=== PATIENT | male | born 1960 ===

== ENCOUNTER 2022-09-24 10:00 | Outpatient (REF) | payer OTHER, MEDICARE, SELFPAY ==
[2022-09-24 11:21] LABS: MANUAL DIFF FLAG NO
[2022-09-24 11:41] LABS: Basophils Percent Auto 0.6 % (0-2); Eosinophils Absolute Auto 0.1 X10*3/uL (0.0-0.4); Eosinophils Percent Auto 1.4 % (0-4); Hematocrit 44.5 % (42.0-52.0); Hemoglobin 13.9 g/dl (14.0-18.0); Imm Gran Abs Auto 0.02 X10*3/uL (0.00-0.03); Imm Gran Pct Auto 0.3 % (0.0-0.4); Lymphocytes Absolute Auto 1.4 X10*3/uL (1.2-4.9); Lymphocytes Percent Auto 21.5 % (20-40); Mean Corpuscular HGB Conc 31.2 g/dl (31.0-36.0); Mean Corpuscular Hemoglobin 26.8 pg (27.0-33.0); Mean Corpuscular Volume 85.7 fL (80.0-98.0); Mean Platelet Volume 10.8 fL (9.4-12.4); Monocytes Absolute Auto 0.4 X10*3/uL (0.1-1.2); Monocytes Percent Auto 6.2 % (2-11); Neutrophils Absolute Auto 4.7 x10*3/uL (2.0-8.3); Platelet Count 366 X10*3/uL (160-400); Red Blood Count 5.19 X10*6/uL (4.60-5.80); Red Cell Distribution Width 13.6 % (11.0-16.0); White Blood Count 6.6 X10*3/uL (4.8-10.8)
[2022-09-24 12:42] LABS: Alanine Aminotransferase 19 U/L (0-40); Albumin Level 4.3 g/dL (3.5-5.0); Alkaline Phosphatase 96 U/L (39-117); Anion Gap 14 (12-20); Aspartate Amino Transferase 25 U/L (5-37); Bilirubin Total 1.7 mg/dL (0.0-1.0); Blood Urea Nitrogen 19 mg/dL (9-16); Calcium 9.7 mg/dL (8.4-10.2); Carbon Dioxide 23 mmol/L (22-29); Chloride 107 mmol/L (96-108); Cholesterol 148 mg/dL; Estimated Glomerular Filt Rate > 60; Glucose Fasting 89 mg/dL (60-99); HDL Cholesterol 52 mg/dL; LDL Cholesterol Calculated 89 mg/dl; Potassium 5.1 mmol/L (3.3-5.1); Sodium 139 mmol/L (135-145); TSH reflex Free T4 0.67 uIU/mL (0.32-4.0); Total Protein 7.1 g/dL (6.5-8.0); Triglycerides 39 mg/dL
[2022-09-30 21:24] LABS: PSA, Ultra Sensitive 8.35 ng/mL
== END 2022-09-24 10:01 | disposition home or self-care (01) ==
LOC: HO.WFDLDS 10:00
PROVIDERS: Visit Provider Nurse Practitioner Family
DX: Z00.00 Encounter for general adult medical examination without abnormal findings (principal); Z12.5 Encounter for screening for malignant neoplasm of prostate; F41.9 Anxiety disorder, unspecified; F90.9 Attention-deficit hyperactivity disorder, unspecified type; G89.29 Other chronic pain; I10 Essential (primary) hypertension; M54.50 Low back pain, unspecified; N40.0 Benign prostatic hyperplasia without lower urinary tract symptoms
CPT/HCPCS: 36415; 80053; 80061; 84153; 84443; 85025

== ENCOUNTER 2023-01-27 13:54 | Outpatient (AMB) | payer MEDICARE, MEDICAID, SELFPAY ==
--- NOTE | 2023-01-27 13:58 | MHC.PC.OV ---
Vital Signs 01/27/23 13:59 Height 5 ft 9 in Weight 168 lb 6 oz BMI 24.9 BP 138/88 Blood Pressure Location Lt brachial Position Sitting Respiration 12 Pulse 71 Pulse Source Pulse Oximeter Temp 98.1 F Temp Source Temporal Artery Scan Pulse Oximetry (%) 99 Oxygen Delivery Method Room Air Intake Visit Reasons: Medications Intake Note: Patient states that he needs a referral to a new psychiatrist. Patient needs refill on Vyvanse and Adderall as well as Diazepam. Patient states he also needs refill on Tildalifil and finasteride. Land Management Supervisor Required: No Accompanied by: Self / Same As Patient Allergies No Known Allergies Allergy (Verified 01/27/23 14:07) Tobacco use date assessed: 08/27/22 Dental Screening Dental Screen Date: 01/27/23 Did you have a dental visit in the last 12 months?: Yes Did you have a dental problem in the last 6 months where you did not have access to dental care?: No Was dental information given to patient?: Patient has dentist HPI HPI Comments History of Present Illness Details 62-year-old male presents for hypertension, anxiety, depression, and ADHD follow-up. He notes that he has not taken Adderall, diazepam, and Vyvanse for the past 2 months. He was seeing a psychiatrist who was also his therapist via telemedicine every 3 months. He notes his psychiatrist informed him 2 months ago that he could no longer continue prescribing for him as a [id number] encounter was required. Adderall was prescribed by the patient's current PCP earlier this month. However, the patient states the medication was not dispensed by the pharmacy. He reports increased symptoms including poor attention span, irritability, and poor sleep. He states she took time off to manage his symptoms. He has not been working for the past 2 months. 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 He states he stopped exercising or going to the gym 4 months ago. He requests a referral to a therapist and psychiatrist. [facility] Medical History (Updated 01/27/23 @ 14:49 by Damaso Elliott CNP) Depression Anxiety Prostate troubles Hypertension Surgical History (Updated 08/27/22 @ 15:09 by Tiffany Shoemaker) No pertinent past surgical history Family History (Updated 01/27/23 @ 14:10 by Emily Chand MA) Other No pertinent family history Social History (Updated 08/27/22 @ 15:08 by Tiffany Shoemaker) Housing: House Alcohol intake: never Patient Tobacco Use Status: Never used Tobacco e-Cigarette/Vaping Use: Never Used service: No Current occupational status: unemployed Cognitive needs: No Hearing needs: No Vision needs: Yes Questionnaire PHQ-9 Over the last 2 weeks, how often have you been bothered by any of the following problems? 1. Little interest or pleasure in doing things: nearly every day 2. Feeling down, depressed, or hopeless: several days 3. Trouble falling or staying asleep, or sleeping too much: nearly every day 4. Feeling tired or having little energy: nearly every day 5. Poor appetite or overeating: nearly every day 6. Feeling bad about yourself - or that you are a failure or have let yourself or your family down: more than half the days 7. Trouble concentrating on things, such as reading the newspaper or watching television: more than half the days 8. Moving or speaking so slowly that other people could have noticed. Or the opposite - being so fidgety or restless that you have been moving around a lot more than usual: nearly every day 9. Thoughts that you would be better off or of hurting yourself in some way: not at all Total score: 20 Depression Screening Interpretation: Positive Source: Developed by Drs. Vickey Barlow, Bernie Sotelo, Loco Seymour and colleagues, with an educational zen from [employer]. Thrive Questionnaire Date Thrive assessed: 08/27/22 KAREN-7 AMB Questionnaire KAREN-7 Date KAREN - 7 assessed: 01/27/23 Feeling nervous, anxious, or on edge: 3 = Nearly every day Not being able to stop or control worryin = Nearly every day Worrying too much about different things: 3 = Nearly every day Trouble relaxin = Nearly every day Being so restless that it is hard to sit still: 2 = More than half the days Becoming easily annoyed or irritable: 3 = Nearly every day Feeling afraid as if something awful might happen: 2 = More than half the days Total KAREN-7 score (0-4 normal; 5-9 mild; 10-14 moderate; 15-21 severe): 19 Source: Developed by Drs. Vickey Barlow, Bernie Sotelo, Loco Seymour and colleagues, with an educational zen from [employer]. Review of Systems Const Details: Const Denies chills, Denies fatigue, Denies fever(s), Denies headache(s) and Denies weakness ENT Denies dizziness and Denies headache(s) Card Denies chest pain, Denies lightheadedness, Denies dyspnea and Denies other (Palpitations) Resp Denies cough, Denies dyspnea, Denies wheezing and Denies other ( shortness of breath) GI Denies abdominal pain, Denies melena, Denies hematochezia, Denies change in bowel habits, Denies dyspepsia and Denies nausea Denies hematuria and Denies dysuria Musc Denies abnormal gait, Denies myalgias, Denies arthralgias, Denies numbness and Denies tingling Skin/Breast Denies rash, Denies unusual bruising and Denies wounds Neuro Denies abnormal gait, Denies dizziness, Denies headache(s), Denies memory loss, Denies numbness, Denies Sensory deficit (Neuro), Denies tingling and Denies weakness Psych Denies anxiety, Denies depression, Denies memory loss Endo Denies cold intolerance, Denies fatigue, Denies heat intolerance, Denies polydipsia and Denies polyuria Aller/Immun Denies wheezing Physical exam (Primary Care) Vital Signs: Last Vital Signs Temp 98.1 F 01/27/23 13:59 Pulse 71 01/27/23 13:59 Resp 12 01/27/23 13:59 BP 138/88 01/27/23 13:59 Pulse Ox 99 01/27/23 13:59 Oxygen Delivery Method Room Air 01/27/23 13:59 BMI result Body Mass Index 24.9 Tobacco/Smoking Status: Tobacco use Status Tobacco use date assessed 08/27/22 09/24/22 09:20 Patient Tobacco Use Status Never used Tobacco 09/24/22 09:20 e-Cigarette/Vaping Use Never Used 09/24/22 09:20 Depression Screening Interpretation: Positive Thrive Assessment: Date of Thrive Assessment Date Thrive assessed 08/27/22 09/24/22 09:20 Const Other: General: no acute distress and well developed Nutritional Appearance: well nourished Orientation/consciousness: patient oriented x3 [facility] Head: Yes normocephalic and Yes atraumatic Eyes General: appearance normal, both eyes and all related structures Pupils: Equal, round and reactive pupils present EOM: EOMs intact bilaterally Resp Effort & Inspection: normal respiratory effort Auscultation: clear to auscultation bilaterally Cardio Rate: regular rate Rhythm: regular rhythm Heart sounds: S1 normal heart sound present, S2 normal heart sound present, no gallops, no murmurs and no rubs GI Palpation (GI): No Abdominal aortic bruit present, Soft to palpation, nontender, No hepatosplenomegaly present and No Rebound tenderness present Auscultation: normal bowel sounds General: Yes no CVA tenderness Back/Spine/Pelvis Back: no CVA tenderness Cervical Spine: cervical ROM normal and No Cervical spine tenderness Thoracic/Lumbar Spine: thoraco-lumbar ROM normal, No pain with thoraco-lumbar ROM, No thoracic spinal tenderness and No lumbar spinal tenderness Extrem General: Yes normal to inspection, No edema and No calf tenderness Skin General: warm and dry. Normal skin color. Normal skin turgor Lesions: no lesions Rashes: no rashes Trauma: no lacerations or abrasions Wounds: no wounds Nails: normal Neuro General: patient oriented x3, gait normal and no focal neuro deficit Cranial nerves: Yes Equal, round and reactive pupils present Cognition (Neuro): normal cognition Gait exam (Neuro): Normal gait present Sensory Exam: No Sensory deficit (Neuro) Psych Appearance: grossly normal Affect: normal affect Attitude: cooperative Thought process: Normal thought process present Assessment and Plan Assessment & Plan (1) Anxiety: Code(s): F41.9 - Anxiety disorder, unspecified Plan: PHQ-9 and KAREN-7 scores revealed severe depression and anxiety Adderall, trazodone, and buspirone ordered. Take as prescribed Routine exercise encouraged He met with the community navigator who will refer him to a therapist and psychiatrist Follow-up in 2 weeks or return sooner with worsening or new symptoms Verbalized understanding and agreed with the treatment plan. (2) Depression: Code(s): F32.A - Depression, unspecified Qualifiers: Depression Type: major depressive disorder Major depression recurrence: unspecified whether recurrent Major depression episode severity: severe Plan: As above (3) ADHD: Code(s): F90.9 - Attention-deficit hyperactivity disorder, unspecified type Qualifiers: Attention deficit-hyperactivity disorder type: unspecified Qualified Code(s): F90.9 - Attention-deficit hyperactivity disorder, unspecified type Plan: As above (4) Hypertension: Code(s): I10 - Essential (primary) hypertension Qualifiers: Hypertension type: primary hypertension Qualified Code(s): I10 - Essential (primary) hypertension Plan: Blood pressure is 130/88, within goal of less than 140/90 Amlodipine as prescribed Low-sodium diet encouraged Follow-up in 1 month for mood disorder Return sooner with symptoms or concerns Verbalized understanding and agreed with treatment plan. He is followed by Urology and will contact them for refill of tadalafil and finasteride. Medications: New trazodone 50 mg PO BID 30 days 60 tabs 2RF buspirone 7.5 mg PO BID 30 days 60 tabs 2RF Changed From dextroamphetamine-amphetamine 20 mg (Adderall) 20 mg PO DAILY 30 days 30 tabs 0RF To dextroamphetamine-amphetamine 20 mg (Adderall) 20 mg PO BID 30 days 60 tabs 0RF Coding Level of Care Code Est Pt Level 3 (45990) Diagnoses Anxiety F41.9 Depression F32.A Depression Type: major depressive disorder Major depression recurrence: unspecified whether recurrent Major depression episode severity: severe Attention deficit hyperactivity disorder (ADHD), unspecified ADHD type F90.9 Attention deficit-hyperactivity disorder type: unspecified Primary hypertension I10 Hypertension type: primary hypertension
[2023-01-27 13:59] VITALS: BP 138/88; PULSE 71; RESP 12; TEMP 36.7; O2SAT 99; BMI 24.9
== END 2023-01-27 15:14 | disposition home or self-care (01) ==
PROVIDERS: PCP Nurse Practitioner Family; Visit Provider Nurse Practitioner Family
DX: F41.9 Anxiety disorder, unspecified (principal); F32.A Depression, unspecified; F90.9 Attention-deficit hyperactivity disorder, unspecified type; I10 Essential (primary) hypertension
CPT/HCPCS: 99213

== ENCOUNTER 2023-02-09 10:14 | Outpatient (AMB) | payer MEDICARE, MEDICAID, SELFPAY ==
--- NOTE | 2023-02-09 10:20 | A.OFFPC_ITS ---
Vital Signs 02/09/23 10:21 Height 5 ft 9 in Weight 171 lb 4 oz BMI 25.3 BP 124/80 Blood Pressure Location Rt brachial Position Sitting Respiration 12 Pulse 83 Pulse Source Pulse Oximeter Temp 97.5 F Temp Source Temporal Artery Scan Pulse Oximetry (%) 99 Oxygen Delivery Method Room Air Intake Visit Reasons: 2 wks mood disorder Intake Note: Patient states that he hasn't gotten his adderall due to insurance needing prior authorization for his adderall. Patient states that the 2 most recent meds prescribed made him feel light headed. 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 Accompanied by: Self / Same As Patient Allergies No Known Allergies Allergy (Verified 02/09/23 10:48) Medication List - Last Reconciled 02/09/23 by Damaso Elliott CNP amlodipine 10 mg PO DAILY 30 days buspirone 7.5 mg PO BID 30 days dextroamphetamine-amphetamine 20 mg (Adderall) 20 mg PO BID 30 days diazepam 10 mg PO TID finasteride 5 mg PO DAILY lisdexamfetamine (Vyvanse) 10 mg PO DAILY tadalafil (Cialis) 5 mg PO DAILY trazodone 50 mg PO BID 30 days Tobacco use date assessed: 08/27/22 Dental Screening Dental Screen Date: 02/09/23 Did you have a dental visit in the last 12 months?: Yes Did you have a dental problem in the last 6 months where you did not have access to dental care?: No Was dental information given to patient?: Patient has dentist HPI HPI Comments History of Present Illness Details 62-year-old male presents for mood disor jacob follow-up. He was evaluated in the office 2 weeks ago for anxiety, depression, and ADHD. He was prescribed Trazadone and Buspirone. He states he has been taking both medications as prescribed and has been experiencing lightheadedness. He states that he has not been taking Adderall for the past 3 weeks due to prior authorization by his pharmacy. He was also referred to a therapist and psychiatrist on his last visit. However, he states she has not been contacted. He states his mood has been improving since his last visit. He is no easily irritable. His sleep improved form 5 to 8 hours on Trazodone. He states watching TV and playing on his phone keeps him calm. He has also been doing push-ups in the home. REPLACED BY [facility] Medical History Depression Anxiety Prostate troubles Hypertension Surgical History No pertinent past surgical history Family History Other No pertinent family history Social History Housing: House Alcohol intake: never Patient Tobacco Use Status: Never used Tobacco e-Cigarette/Vaping Use: Never Used service: No Current occupational status: unemployed Cognitive needs: No Hearing needs: No Vision needs: No Questionnaire PHQ-9 Over the last 2 weeks, how often have you been bothered by any of the following problems? 1. Little interest or pleasure in doing things: nearly every day 2. Feeling down, depressed, or hopeless: nearly every day 3. Trouble falling or staying asleep, or sleeping too much: nearly every day 4. Feeling tired or having little energy: nearly every day 5. Poor appetite or overeating: nearly every day 6. Feeling bad about yourself - or that you are a failure or have let yourself or your family down: nearly every day 7. Trouble concentrating on things, such as reading the newspaper or watching television: nearly every day 8. Moving or speaking so slowly that other people could have noticed. Or the op posite - being so fidgety or restless that you have been moving around a lot more than usual: more than half the days 9. Thoughts that you would be better off or of hurting yourself in some way: not at all Total score: 23 Depression Screening Interpretation: Positive Depression Screening Follow-up: Existing condition and In treatment 10549 - PHQ-9 Billing: Yes Source: Developed by Drs. Vickey Barlow, Bernie Soetlo, Loco Seymour and colleagues, with an educational zen from [employer]. Thrive Questionnaire Date Thrive assessed: 08/27/22 KAREN-7 AMB Questionnaire KAREN-7 Date KAREN - 7 assessed: 02/09/23 Feeling nervous, anxious, or on edge: 3 = Nearly every day Not being able to stop or control worryin = Nearly every day Worrying too much about different things: 3 = Nearly every day Trouble relaxin = Nearly every day Being so restless that it is hard to sit still: 3 = Nearly every day Becoming easily annoyed or irritable: 3 = Nearly every day Feeling afraid as if something awful might happen: 3 = Nearly every day Total KAREN-7 score (0-4 normal; 5-9 mild; 10-14 moderate; 15-21 severe): 21 Source: Developed by Drs. Vickey Barlow, Bernie Sotelo, Loco Seymour and colleagues, with an educational zen from [employer]. KAREN-7 Assessment Billing KAREN-7 Assessment Tool: KAREN-7 Assessment 06080 Review of Systems Const Details: Const Denies chills, Denies fatigue, Denies fever(s), Denies headache(s) and Denies weakness ENT Denies dizziness and Denies headache(s) Card Denies chest pain, Denies lightheadedness, Denies dyspnea and Denies other (Palpitations) Resp Denies cough, Denies dyspnea, Denies wheezing and Denies other ( shortness of breath) GI Denies abdominal pain, Denies melena, Denies hematochezia, Denies change in bowel habits, Denies dyspepsia and Denies nausea Denies hematuria and Denies dysuria Musc Denies abnormal gait, Denies myalgias, Denies arthralgias, Denies numbness and Denies tingling Skin/Breast Denies rash, Denies unusual bruising and Denies wounds Neuro Denies abnormal gait, Denies dizziness, Denies headache(s), Denies memory loss, Denies numbness, Denies Sensory deficit (Neuro), Denies tingling and Denies weakness Psych Reports anxiety, Reports depression, Denies memory loss Endo Denies cold intolerance, Denies fatigue, Denies heat intolerance, Denies polydipsia and Denies polyuria Aller/Immun Denies wheezing Physical exam (Primary Care) Vital Signs: Last Vital Signs Temp 97.5 F 02/09/23 10:21 Pulse 83 02/09/23 10:21 Resp 12 02/09/23 10:21 BP 124/80 02/09/23 10:21 Pulse Ox 99 02/09/23 10:21 Oxygen Delivery Method Room Air 02/09/23 10:21 BMI result Body Mass Index 25.3 Tobacco/Smoking Status: Tobacco use Status Tobacco use date assessed 08/27/22 02/09/23 10:30 Patient Tobacco Use Status Never used Tobacco 02/09/23 10:30 e-Cigarette/Vaping Use Never Used 02/09/23 10:30 PHQ-9: PHQ-9 Score PHQ-9: Total score 02/09/23 10:51 Depression Screening Interpretation: Positive Depression Screening Follow-up: Existing condition and In treatment Thrive Assessment: Date of Thrive Assessment Date Thrive assessed 08/27/22 02/09/23 10:30 Const Other: General: no acute distress and well developed Nutritional Appearance: well nourished Orientation/consciousness: patient oriented x3 HENMT Head: Yes normocephalic and Yes atraumatic Eyes General: appearance normal, both eyes and all related structures Pupils: Equal, round and reactive pupils present EOM: EOMs intact bilaterally Resp Effort & Inspection: normal respiratory effort Auscultation: clear to auscultation bilaterally Cardio Rate: regular rate Rhythm: regular rhythm Heart sounds: S1 normal heart sound present, S2 normal heart sound present, no gallops, no murmurs and no rubs GI Palpation (GI): No Abdominal aortic bruit present, Soft to palpation, nontender, No hepatosplenomegaly present and No Rebound tenderness present Auscultation: normal bowel sounds General: Yes no CVA tenderness Back/Spine/Pelvis Back: no CVA tenderness Cervical Spine: cervical ROM normal and No Cervical spine tenderness Thoracic/Lumbar Spine: thoraco-lumbar ROM normal, No pain with thoraco-lumbar ROM, No thoracic spinal tenderness and No lumbar spinal tenderness Extrem General: Yes normal to inspection, No edema and No calf tenderness Skin General: warm and dry. Normal skin color. Normal skin turgor Lesions: no lesions Rashes: no rashes Trauma: no lacerations or abrasions Wounds: no wounds Nails: normal Neuro General: patient oriented x3, gait normal and no focal neuro deficit Cranial nerves: Yes Equal, round and reactive pupils present Cognition (Neuro): normal cognition Gait exam (Neuro): Normal gait present Sensory Exam: No Sensory deficit (Neuro) Psych Appearance: grossly normal Affect: normal affect Attitude: cooperative Thought process: Normal thought process present Assessment and Plan Assessment & Plan (1) Anxiety: Code(s): F41.9 - Anxiety disorder, unspecified Plan: KAREN-7 and PHQ-9 scores revealed severe anxiety and depression Adverse effect of lightheadedness may be attributed to trazodone. Will modify trazodone order to 50 mg at bedtime. Take as prescribed Take Buspirone as needed for anxiety Prior authorization sent for Adderall. Take as prescribed once received Routine exercise encouraged Message sent to the community navigator that the patient has not been contacted to establish with a therapist or psychiatrist and to follow-up Follow-up in 2 weeks or return sooner with worsening or new symptoms Verbalized understanding and agreed with treatment plan. (2) Depression: Code(s): F32.A - Depression, unspecified Qualifiers: Depression Type: major depressive disorder Major depression episode severity: severe Major depression recurrence: unspecified whether recurrent Plan: As above (3) ADHD: Code(s): F90.9 - Attention-deficit hyperactivity disorder, unspecified type Qualifiers: Attention deficit-hyperactivity disorder type: unspecified Qualified Code(s): F90.9 - Attention-deficit hyperactivity disorder, unspecified type Plan: As above Coding Level of Care Code Est Pt Level 3 (80976) Diagnoses Anxiety F41.9 Depression F32.A Depression Type: major depressive disorder Major depression episode severity: severe Major depression recurrence: unspecified whether recurrent Attention deficit hyperactivity disorder (ADHD), unspecified ADHD type F90.9 Attention deficit-hyperactivity disorder type: unspecified Additional Codes KAREN-7 Assessment Billing - KAREN-7 Assessment Tool: KAREN-7 Assessment 21605 ([id number])
[2023-02-09 10:21] VITALS: BP 124/80; PULSE 83; RESP 12; TEMP 36.4; O2SAT 99; BMI 25.3
== END 2023-02-09 11:12 | disposition home or self-care (01) ==
PROVIDERS: PCP Nurse Practitioner Family; Visit Provider Nurse Practitioner Family
DX: F41.9 Anxiety disorder, unspecified (principal); F32.A Depression, unspecified; F90.9 Attention-deficit hyperactivity disorder, unspecified type
CPT/HCPCS: 99213

== ENCOUNTER 2023-03-14 08:58 | Outpatient (AMB) | payer MEDICARE, MEDICAID, SELFPAY ==
--- NOTE | 2023-03-14 09:01 | MHC.PC.OV ---
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 Accompanied by: Self / Same As Patient Allergies No Known Allergies Allergy (Verified 03/14/23 09:21) Medication List - Last Reconciled 03/14/23 by Damaso Elliott CNP amlodipine 10 mg PO DAILY 30 days buspirone 7.5 mg PO BID 30 days dextroamphetamine-amphetamine 20 mg (Adderall) 20 mg PO BID 30 days diazepam 10 mg PO TID finasteride 5 mg PO DAILY lisdexamfetamine (Vyvanse) 10 mg PO DAILY tadalafil (Cialis) 5 mg PO DAILY trazodone 50 mg PO BID 30 days Tobacco use date assessed: 08/27/22 Dental Screening Dental Screen Date: 03/14/23 Did you have a dental visit in the last 12 months?: Yes Did you have a dental problem in the last 6 months where you did not have access to dental care?: No Was dental information given to patient?: Patient has dentist HPI HPI Comments History of Present Illness Details 62-year-old male presents for anxiety, depression, and ADHD follow-up. He is on buspirone, trazodone, and Adderall. He admits to take his medication as prescribed with no adverse effects. He notes that his sleep has been improving. He had a positive response to the PHQ-9 question regarding Thoughts that you would be better off or of hurting yourself in some way. He notes that I just can't do anything. If i'm not binge eating, i just can't do anything. He notes that he feels depressed and angry but he does not know what he is angry about. He denies SI/HI, plans of committing suicide, and contracts for safety. He notes that he has not been exercising. ? [facility] Medical History Depression Anxiety Prostate troubles Hypertension Surgical History No pertinent past surgical history Family History Other No pertinent family history Social History Housing: House Alcohol intake: never Patient Tobacco Use Status: Never used Tobacco e-Cigarette/Vaping Use: Never Used service: No Current occupational status: unemployed Cognitive needs: No Hearing needs: No Vision needs: No Questionnaire PHQ-9 Over the last 2 weeks, how often have you been bothered by any of the following problems? 1. Little interest or pleasure in doing things: nearly every day 2. Feeling down, depressed, or hopeless: nearly every day 3. Trouble falling or staying asleep, or sleeping too much: nearly every day 4. Feeling tired or having little energy: nearly every day 5. Poor appetite or overeating: nearly every day 6. Feeling bad about yourself - or that you are a failure or have let yourself or your family down: nearly every day 7. Trouble concentrating on things, such as reading the newspaper or watching television: nearly every day 8. Moving or speaking so slowly that other people could have noticed. Or the opposite - being so fidgety or restless that you have been moving around a lot more than usual: nearly every day 9. Thoughts that you would be better off or of hurting yourself in some way: nearly every day Total score: 27 Depression Screening Interpretation: Positive Depression Screening Follow-up: Existing condition, In treatment, New Medication prescribed, Change in Medication and Community Mental Health Worker F/U Depression Screening Done: Yes Source: Developed by Drs. Vickey Barlow, Bernie Sotelo, Loco Seymour and colleagues, with an educational zen from [employer]. Thrive Questionnaire Date Thrive assessed: 08/27/22 KAREN-7 AMB Questionnaire KAREN-7 Date KAREN - 7 assessed: 02/09/23 Feeling nervous, anxious, or on edge: 3 = Nearly every day Not being able to stop or control worryin = Nearly every day Worrying too much about different things: 3 = Nearly every day Trouble relaxin = Nearly every day Being so restless that it is hard to sit still: 3 = Nearly every day Becoming easily annoyed or irritable: 3 = Nearly every day Feeling afraid as if something awful might happen: 3 = Nearly every day Total KAREN-7 score (0-4 normal; 5-9 mild; 10-14 moderate; 15-21 severe): 21 Source: Developed by Drs. Vickey Barlow, Bernie Sotelo, Loco Seymour and colleagues, with an educational zen from [employer]. Review of Systems Const Details: Const Denies chills, Denies fatigue, Denies fever(s), Denies headache(s) and Denies weakness ENT Denies dizziness and Denies headache(s) Card Denies chest pain, Denies lightheadedness, Denies dyspnea and Denies other (Palpitations) Resp Denies cough, Denies dyspnea, Denies wheezing and Denies other ( shortness of breath) GI Denies abdominal pain, Denies melena, Denies hematochezia, Denies change in bowel habits, Denies dyspepsia and Denies nausea Denies hematuria and Denies dysuria Musc Denies abnormal gait, Denies myalgias, Denies arthralgias, Denies numbness and Denies tingling Skin/Breast Denies rash, Denies unusual bruising and Denies wounds Neuro Denies abnormal gait, Denies dizziness, Denies headache(s), Denies memory loss, Denies numbness, Denies Sensory deficit (Neuro), Denies tingling and Denies weakness Psych Denies anxiety, Denies depression, Denies memory loss Endo Denies cold intolerance, Denies fatigue, Denies heat intolerance, Denies polydipsia and Denies polyuria Aller/Immun Denies wheezing Physical exam (Primary Care) Vital Signs: Last Vital Signs Temp 98.2 F 03/14/23 09:02 Pulse 78 03/14/23 09:02 Resp 12 03/14/23 09:02 BP 126/74 03/14/23 09:02 Pulse Ox 98 03/14/23 09:02 Oxygen Delivery Method Room Air 03/14/23 09:02 BMI result Body Mass Index 25.8 Tobacco/Smoking Status: Tobacco use Status Tobacco use date assessed 08/27/22 03/14/23 09:10 Patient Tobacco Use Status Never used Tobacco 03/14/23 09:10 e-Cigarette/Vaping Use Never Used 03/14/23 09:10 PHQ-9: PHQ-9 Score PHQ-9: Total score 27 03/14/23 09:19 Depression Screening Interpretation: Positive Depression Screening Follow-up: Existing condition, In treatment, New Medication prescribed, Change in Medication and Community Mental Health Worker F/U Thrive Assessment: Date of Thrive Assessment Date Thrive assessed 08/27/22 03/14/23 09:10 Const Other: General: no acute distress and well developed Nutritional Appearance: well nourished Orientation/consciousness: patient oriented x3 HENMT Head: Yes normocephalic and Yes atraumatic Eyes General: appearance normal, both eyes and all related structures Pupils: Equal, round and reactive pupils present EOM: EOMs intact bilaterally Resp Effort & Inspection: normal respiratory effort Auscultation: clear to auscultation bilaterally Cardio Rate: regular rate Rhythm: regular rhythm Heart sounds: S1 normal heart sound present, S2 normal heart sound present, no gallops, no murmurs and no rubs GI Palpation (GI): No Abdominal aortic bruit present, Soft to palpation, nontender, No hepatosplenomegaly present and No Rebound tenderness present Auscultation: normal bowel sounds General: Yes no CVA tenderness Back/Spine/Pelvis Back: no CVA tenderness Cervical Spine: cervical ROM normal and No Cervical spine tenderness Thoracic/Lumbar Spine: thoraco-lumbar ROM normal, No pain with thoraco-lumbar ROM, No thoracic spinal tenderness and No lumbar spinal tenderness Extrem General: Yes normal to inspection, No edema and No calf tenderness Skin General: warm and dry. Normal skin color. Normal skin turgor Lesions: no lesions Rashes: no rashes Trauma: no lacerations or abrasions Wounds: no wounds Nails: normal Neuro General: patient oriented x3, gait normal and no focal neuro deficit Cranial nerves: Yes Equal, round and reactive pupils present Cognition (Neuro): normal cognition Gait exam (Neuro): Normal gait present Sensory Exam: No Sensory deficit (Neuro) Psych Appearance: grossly normal Affect: flat affect Attitude: cooperative Thought process: Normal thought process present Assessment and Plan Assessment & Plan (1) Depression: Code(s): F32.A - Depression, unspecified Qualifiers: Depression Type: major depressive disorder Major depression recurrence: unspecified whether recurrent Major depression episode severity: severe Plan: Reports worsening anxiety, depression, and ADHD symptoms PHQ-9 and KAREN-7 scores revealed severe depression and anxiety Fluoxetine ordered. Take as prescribed Will increase buspirone to 10 mg twice daily. Take as prescribed Continue to take trazodone as prescribed Routine exercise encouraged His health plan did not cover this psychiatrist he was referred to. Therefore, he met with our community navigator today who referred him to a new psychiatrist. He is advised to contact the community navigator he is not contacted for an appointment in the next 2 weeks Follow-up in 2 weeks or return sooner with worsening or new symptoms. Instructed on importance of follow-up as instructed Verbalized understanding and agreed with treatment plan. (2) Anxiety: Code(s): F41.9 - Anxiety disorder, unspecified Plan: As above (3) ADHD: Code(s): F90.9 - Attention-deficit hyperactivity disorder, unspecified type Qualifiers: Attention deficit-hyperactivity disorder type: unspecified Qualified Code(s): F90.9 - Attention-deficit hyperactivity disorder, unspecified type Plan: As above (4) Hypertension: Code(s): I10 - Essential (primary) hypertension Qualifiers: Hypertension type: primary hypertension Qualified Code(s): I10 - Essential (primary) hypertension Plan: His blood pressure is controlled, 126/74, within goal of less than 140/90 Continue with current treatment regimen Low-sodium diet encouraged Will continue to monitor Verbalized understanding and agreed with treatment plan. Medications: New buspirone 10 mg PO BID 30 days 60 tabs 3RF fluoxetine 20 mg PO DAILY 30 days 30 caps 3RF Discontinued buspirone Discontinued Reason: Doctor's Order 7.5 mg PO BID 30 days 60 tabs 2RF Coding Level of Care Code Est Pt Level 4 (88148) Diagnoses Depression F32.A Depression Type: major depressive disorder Major depression recurrence: unspecified whether recurrent Major depression episode severity: severe Anxiety F41.9 Attention deficit hyperactivity disorder (ADHD), unspecified ADHD type F90.9 Attention deficit-hyperactivity disorder type: unspecified Primary hypertension I10 Hypertension type: primary hypertension
[2023-03-14 09:02] VITALS: BP 126/74; PULSE 78; RESP 12; TEMP 36.8; O2SAT 98; BMI 25.8
== END 2023-03-14 10:27 | disposition home or self-care (01) ==
PROVIDERS: PCP Nurse Practitioner Family; Visit Provider Nurse Practitioner Family
DX: I10 Essential (primary) hypertension (principal); F32.A Depression, unspecified; F41.9 Anxiety disorder, unspecified; F90.9 Attention-deficit hyperactivity disorder, unspecified type
CPT/HCPCS: 99214

== ENCOUNTER 2023-03-28 10:40 | Outpatient (AMB) | payer MEDICARE, MEDICAID, SELFPAY ==
--- NOTE | 2023-03-28 10:45 | MHC.PC.OV ---
Vital Signs 03/28/23 10:47 03/28/23 11:19 Height 5 ft 9 in Weight 168 lb 9 oz BMI 24.9 BP 142/88 H 130/90 H Blood Pressure Location Lt brachial Rt brachial Position Sitting Sitting Respiration 13 Pulse 89 Pulse Source Pulse Oximeter Temp 98.9 F Temp Source Oral Pulse Oximetry (%) 98 Oxygen Delivery Method Room Air Intake Visit Reasons: 2 wks anxiety, depression, ADHD Intake Note: Patient is here to follow up on his anxiety, depression and ADHD. Patient reports anxiety is elevated due to check-in process. [employer] Required: No Accompanied by: Self / Same As Patient Allergies No Known Allergies Allergy (Verified 03/28/23 10:59) Medication List - Last Reconciled 03/28/23 by Damaso Elliott CNP amlodipine 10 mg PO DAILY 30 days buspirone 10 mg PO BID 30 days dextroamphetamine-amphetamine 20 mg (Adderall) 20 mg PO BID 30 days diazepam 10 mg PO TID finasteride 5 mg PO DAILY fluoxetine 20 mg PO DAILY 30 days lisdexamfetamine (Vyvanse) 10 mg PO DAILY tadalafil (Cialis) 5 mg PO DAILY trazodone 50 mg PO BID 30 days Tobacco use date assessed: 08/27/22 HPI HPI Comments History of Present Illness Details 62-year-old male presents for anxiety, depression, and ADHD follow-up. He was last seen on 03/14/2023. He reported sleep improvement and increased anxiety and depression symptoms. Fluoxetine was prescribed. Prescribed 1 was increased to 10 mg twice daily. He was advised to take his medication including trazodone and Adderall as prescribed. He was referred to a new psychiatrist. He admits to taking his medications as prescribed. He states that he noticed some improvement with his current treatment regimen. He notes that I'm more calm and less irritable. He notes that trazodone makes him drowsy not sleepy. Melatonin was not effective in the past. He reports inadequate amount of sleep. He states that he has not started exercising routinely. He notes that he was contacted by his psychiatrist who informed him he does not have a referral for them. However, he was placed on a wait list. [facility] Medical History Depression Anxiety Prostate troubles Hypertension Surgical History No pertinent past surgical history Family History Other No pertinent family history Social History Housing: House Alcohol intake: never Patient Tobacco Use Status: Never used Tobacco e-Cigarette/Vaping Use: Never Used service: No Current occupational status: unemployed Cognitive needs: No Hearing needs: No Vision needs: No Questionnaire PHQ-9 Over the last 2 weeks, how often have you been bothered by any of the following problems? 1. Little interest or pleasure in doing things: nearly every day 2. Feeling down, depressed, or hopeless: more than half the days 3. Trouble falling or staying asleep, or sleeping too much: nearly every day 4. Feeling tired or having little energy: more than half the days 5. Poor appetite or overeating: more than half the days 6. Feeling bad about yourself - or that you are a failure or have let yourself or your family down: more than half the days 7. Trouble concentrating on things, such as reading the newspaper or watching television: more than half the days 8. Moving or speaking so slowly that other people could have noticed. Or the opposite - being so fidgety or restless that you have been moving around a lot more than usual: nearly every day 9. Thoughts that you would be better off or of hurting yourself in some way: not at all Total score: 19 Depression Screening Interpretation: Positive Depression Screening Follow-up: Existing condition and In treatment Depression Screening Done: Yes 63038 - PHQ-9 Billing: Yes Source: Developed by Drs. Vickey Barlow, Bernie Sotelo, Loco Seymour and colleagues, with an educational zen from [employer]. Thrive Questionnaire Date Thrive assessed: 08/27/22 KAREN-7 AMB Questionnaire KAREN-7 Date KAREN - 7 assessed: 03/28/23 Feeling nervous, anxious, or on edge: 3 = Nearly every day Not being able to stop or control worryin = Nearly every day Worrying too much about different things: 2 = More than half the days Trouble relaxin = Nearly every day Being so restless that it is hard to sit still: 3 = Nearly every day Becoming easily annoyed or irritable: 2 = More than half the days Feeling afraid as if something awful might happen: 3 = Nearly every day Total KAREN-7 score (0-4 normal; 5-9 mild; 10-14 moderate; 15-21 severe): 19 Source: Developed by Drs. Vickey Barlow, Bernie Sotelo, Loco Seymour and colleagues, with an educational zen from [employer]. KAREN-7 Assessment Billing KAREN-7 Assessment Tool: KAREN-7 Assessment 57599 Review of Systems Const Details: Const Denies chills, Denies fatigue, Denies fever(s), Denies headache(s) and Denies weakness ENT Denies dizziness and Denies headache(s) Card Denies chest pain, Denies lightheadedness, Denies dyspnea and Denies other (Palpitations) Resp Denies cough, Denies dyspnea, Denies wheezing and Denies other ( shortness of breath) GI Denies abdominal pain, Denies melena, Denies hematochezia, Denies change in bowel habits, Denies dyspepsia and Denies nausea Denies hematuria and Denies dysuria Musc Denies abnormal gait, Denies myalgias, Denies arthralgias, Denies numbness and Denies tingling Skin/Breast Denies rash, Denies unusual bruising and Denies wounds Neuro Denies abnormal gait, Denies dizziness, Denies headache(s), Denies memory loss, Denies numbness, Denies Sensory deficit (Neuro), Denies tingling and Denies weakness Psych Reports anxiety, Reports depression, Denies memory loss Endo Denies cold intolerance, Denies fatigue, Denies heat intolerance, Denies polydipsia and Denies polyuria Aller/Immun Denies wheezing Physical exam (Primary Care) Vital Signs: Last Vital Signs Temp 98.9 F 03/28/23 10:47 Pulse 89 03/28/23 10:47 Resp 13 03/28/23 10:47 BP 142/88 H 03/28/23 10:47 Pulse Ox 98 03/28/23 10:47 Oxygen Delivery Method Room Air 03/28/23 10:47 BMI result Body Mass Index 24.9 Tobacco/Smoking Status: Tobacco use Status Tobacco use date assessed 08/27/22 03/28/23 10:47 Patient Tobacco Use Status Never used Tobacco 03/28/23 10:47 e-Cigarette/Vaping Use Never Used 03/28/23 10:47 PHQ-9: PHQ-9 Score PHQ-9: Total score 19 03/28/23 10:56 Depression Screening Interpretation: Positive Depression Screening Follow-up: Existing condition and In treatment Thrive Assessment: Date of Thrive Assessment Date Thrive assessed 08/27/22 03/28/23 10:47 Const Other: General: no acute distress and well developed Nutritional Appearance: well nourished Orientation/consciousness: patient oriented x3 HENMT Head: Yes normocephalic and Yes atraumatic Eyes General: appearance normal, both eyes and all related structures Pupils: Equal, round and reactive pupils present EOM: EOMs intact bilaterally Resp Effort & Inspection: normal respiratory effort Auscultation: clear to auscultation bilaterally Cardio Rate: regular rate Rhythm: regular rhythm Heart sounds: S1 normal heart sound present, S2 normal heart sound present, no gallops, no murmurs and no rubs GI Palpation (GI): No Abdominal aortic bruit present, Soft to palpation, nontender, No hepatosplenomegaly present and No Rebound tenderness present Auscultation: normal bowel sounds General: Yes no CVA tenderness Back/Spine/Pelvis Back: no CVA tenderness Cervical Spine: cervical ROM normal and No Cervical spine tenderness Thoracic/Lumbar Spine: thoraco-lumbar ROM normal, No pain with thoraco-lumbar ROM, No thoracic spinal tenderness and No lumbar spinal tenderness Extrem General: Yes normal to inspection, No edema and No calf tenderness Skin General: warm and dry. Normal skin color. Normal skin turgorl Neuro General: patient oriented x3, unsteady baseline gait, and no focal neuro deficit Cranial nerves: Yes Equal, round and reactive pupils present Cognition (Neuro): normal cognition Gait exam (Neuro): unsteady baseline gait present Sensory Exam: No Sensory deficit (Neuro) Psych Appearance: grossly normal Affect: normal affect Attitude: cooperative Thought process: Normal thought process present Assessment and Plan Assessment & Plan (1) Depression: Code(s): F32.A - Depression, unspecified Qualifiers: Depression Type: major depressive disorder Major depression recurrence: unspecified whether recurrent Major depression episode severity: severe Plan: PHQ-9 and KAREN-7 scores revealed moderately severe depression and severe anxiety respectively Continue to take Adderall, fluoxetine, and buspirone daily Routine exercise encouraged He met with the community navigator to assist him with connecting to a psychiatrist Follow-up in 2 weeks or return sooner with worsening or new symptoms Verbalized understanding and agreed with treatment plan. (2) Anxiety: Code(s): F41.9 - Anxiety disorder, unspecified Plan: As above (3) ADHD: Code(s): F90.9 - Attention-deficit hyperactivity disorder, unspecified type Qualifiers: Attention deficit-hyperactivity disorder type: unspecified Qualified Code(s): F90.9 - Attention-deficit hyperactivity disorder, unspecified type Plan: As above (4) Hypertension: Code(s): I10 - Essential (primary) hypertension Qualifiers: Hypertension type: primary hypertension Qualified Code(s): I10 - Essential (primary) hypertension Plan: Resting blood pressure is 130/90, slightly above goal of less than 140/80 Amlodipine as prescribed Clonidine prescribed for sleep. May improve blood pressure Low-sodium diet encouraged Follow-up in 2 weeks or return sooner with symptoms or concerns Verbalized understanding and agreed with treatment plan. (5) Insomnia: Code(s): G47.00 - Insomnia, unspecified Qualifiers: Insomnia type: due to other mental disorder Qualified Code(s): F51.05 - Insomnia due to other mental disorder; F99 - Mental disorder, not otherwise specified Plan: Reports inadequate sleep and trazodone has bee ineffective Trazodone discontinued Clonidine ordered. Take as prescribed Routine exercise encouraged Follow-up in 2 weeks or return sooner with worsening or new symptoms Verbalized understanding and agreed with treatment plan. Medications: New clonidine HCl 0.1 mg PO BID 30 days 60 tabs 1RF Discontinued trazodone Discontinued Reason: Doctor's Order 50 mg PO BID 30 days 60 tabs 2RF Coding Level of Care Code Est Pt Level 4 (03804) Diagnoses Depression F32.A Depression Type: major depressive disorder Major depression recurrence: unspecified whether recurrent Major depression episode severity: severe Anxiety F41.9 Attention deficit hyperactivity disorder (ADHD), unspecified ADHD type F90.9 Attention deficit-hyperactivity disorder type: unspecified Primary hypertension I10 Hypertension type: primary hypertension Insomnia due to other mental disorder F51.05; F99 Insomnia type: due to other mental disorder Additional Codes KAREN-7 Assessment Billing - KAREN-7 Assessment Tool: KAREN-7 Assessment [id number] ([id number])
[2023-03-28 10:47] VITALS: BP 142/88; PULSE 89; RESP 13; TEMP 37.2; O2SAT 98; BMI 24.9
[2023-03-28 11:19] VITALS: BP 130/90
== END 2023-03-28 11:39 | disposition home or self-care (01) ==
PROVIDERS: PCP Nurse Practitioner Family; Visit Provider Nurse Practitioner Family
DX: F32.A Depression, unspecified (principal); F41.9 Anxiety disorder, unspecified; F90.9 Attention-deficit hyperactivity disorder, unspecified type; I10 Essential (primary) hypertension; F51.05 Insomnia due to other mental disorder; F99 Mental disorder, not otherwise specified
CPT/HCPCS: 96127; 99214

== ENCOUNTER 2023-04-11 11:26 | Outpatient (REF) | payer MEDICARE, MEDICAID, SELFPAY ==
[2023-04-11 13:20] LABS: Prostate Specific Antigen 5.99 ng/mL (<0.05-4.0)
== END 2023-04-11 11:27 | disposition home or self-care (01) ==
LOC: HO.LAB 11:26
PROVIDERS: PCP Nurse Practitioner Family; Visit Provider Physician Assistant
DX: Z12.5 Encounter for screening for malignant neoplasm of prostate (principal); R97.20 Elevated prostate specific antigen [PSA]
CPT/HCPCS: 36415; 84153

== ENCOUNTER 2023-06-22 16:03 | Outpatient (AMB) | payer OTHER, SELFPAY ==
--- NOTE | 2023-06-22 16:15 | MHC.PC.OV ---
Vital Signs 06/22/23 16:22 Height 5 ft 9 in Weight 169 lb 8 oz BMI 25.0 BP 130/78 Blood Pressure Location Lt brachial Position Sitting Pulse 82 Pulse Source Pulse Oximeter Pulse Oximetry (%) 96 Oxygen Delivery Method Room Air Intake Visit Reasons: Transfer from [facility] Intake Note: Pt is transfer care from [facility] Allergies No Known Allergies Allergy (Verified 06/22/23 16:25) Tobacco use date assessed: 06/22/23 Dental Screening Dental Screen Date: 06/22/23 Did you have a dental visit in the last 12 months?: Yes Did you have a dental problem in the last 6 months where you did not have access to dental care?: No Was dental information given to patient?: Patient has dentist HPI Transfer from [facility] HPI Details New pt is here for a PE. Will order labs. Pt has had a previous colonoscopy in [place], will track down notes. Pt sees a urologist. Pt has a therapist due to severe anxiety. He currently takes adderall and diazepam. Explained to pt that I can not prescribe these meds. He is on a waiting list to see a psychiatrist. Pt will contact his previous provider to see if he can continue to prescribe these. Denies any SI and HI. Pt c/o bilat knee and shoulder pain. He reports a hx of arthritis. Will refer to ortho. Pt follows up with [facility]. Pt has a heightened sole of his left shoe due to a severe hip injury in the past. [facility] Medical History Depression Anxiety Prostate troubles Hypertension Surgical History No pertinent past surgical history Family History Other No pertinent family history Social History Housing: House Alcohol intake: never Patient Tobacco Use Status: Never used Tobacco e-Cigarette/Vaping Use: Never Used service: No Current occupational status: unemployed Cognitive needs: No Hearing needs: No Vision needs: No Questionnaire PHQ-9 Over the last 2 weeks, how often have you been bothered by any of the following problems? 1. Little interest or pleasure in doing things: nearly every day 2. Feeling down, depressed, or hopeless: nearly every day 3. Trouble falling or staying asleep, or sleeping too much: nearly every day 4. Feeling tired or having little energy: nearly every day 5. Poor appetite or overeating: nearly every day 6. Feeling bad about yourself - or that you are a failure or have let yourself or your family down: nearly every day 7. Trouble concentrating on things, such as reading the newspaper or watching television: nearly every day 8. Moving or speaking so slowly that other people could have noticed. Or the opposite - being so fidgety or restless that you have been moving around a lot more than usual: nearly every day 9. Thoughts that you would be better off or of hurting yourself in some way: several days Total score: 25 Depression Screening Interpretation: Positive Depression Screening Follow-up: Existing condition and In treatment Depression Screening Done: Yes 99892 - PHQ-9 Billing: Yes Source: Developed by Drs. Vickey Barlow, Bernie Sotelo, Loco Seymour and colleagues, with an educational zen from [employer]. Thrive Questionnaire Date Thrive assessed: 06/22/23 I am a: Patient What is your living situation today?: I have a steady place to live Within the past 12 months, did the food you bought not last and you didn't have the money to get more?: Sometimes True Within the past 12 months, did you worry whether your food would run out before you got money to buy more?: Sometimes True Do you have trouble paying for medicines?: Yes Do you have trouble getting transportation to medical appointments?: No Do you have trouble paying your heating and electricity bill?: No Do you have trouble taking care of your child, family member or friend?: No Do you have trouble with day-to-day activities such as bathing, preparing meals, shopping, managing finances, etc.?: No Are you currently unemployed and looking for a job?: No Are you interested in more education?: Yes Currently or been in a relationship where the following occur: no concerns reported THRIVE Score: 2 AUDIT C Alcohol Use Questionnaire (AUDIT-C) 1. How often do you have a drink containing alcohol?: Monthly or less 2. How many drinks containing alcohol do you have on a typical day when you are drinking?: 1 or 2 3. How often do you have six or more drinks on one occasion?: Never Total Score: 1 Score Reviewed/Action Taken: Yes KAREN-7 AMB Questionnaire KAREN-7 Date KAREN - 7 assessed: 06/22/23 Feeling nervous, anxious, or on edge: 3 = Nearly every day Not being able to stop or control worryin = Nearly every day Worrying too much about different things: 3 = Nearly every day Trouble relaxin = Nearly every day Being so restless that it is hard to sit still: 2 = More than half the days Becoming easily annoyed or irritable: 3 = Nearly every day Feeling afraid as if something awful might happen: 3 = Nearly every day Total KAREN-7 score (0-4 normal; 5-9 mild; 10-14 moderate; 15-21 severe): 20 Source: Developed by Drs. Vickey Barlow, Bernie Sotelo, Loco Seymour and colleagues, with an educational zen from [employer]. KAREN-7 Assessment Billing KAREN-7 Assessment Tool: KAREN-7 Assessment [id number] (sees therapist, on waiting list for psychiatrist, denies any si or hi) Physical exam (Primary Care) Vital Signs: Last Vital Signs Pulse 82 06/22/23 16:22 BP 130/78 06/22/23 16:22 Pulse Ox 96 06/22/23 16:22 Oxygen Delivery Method Room Air 06/22/23 16:22 BMI result Body Mass Index 25.0 Tobacco/Smoking Status: Tobacco use Status Tobacco use date assessed 06/22/23 06/22/23 16:30 Patient Tobacco Use Status Never used Tobacco 06/22/23 16:16 e-Cigarette/Vaping Use Never Used 06/22/23 16:16 PHQ-9: PHQ-9 Score PHQ-9: Total score 25 06/22/23 16:35 Depression Screening Interpretation: Positive Depression Screening Follow-up: Existing condition and In treatment Thrive Assessment: Date of Thrive Assessment Date Thrive assessed 06/22/23 06/22/23 16:34 Currently or been in a relationship where the following occur: no concerns reported Const General: cooperative and no acute distress HENMT Ears: TM normal on the right and TM normal on the left Throat: Yes posterior oropharynx normal Eyes General: appearance normal, both eyes and all related structures Neck Neck: Yes normal visual inspection Chest Chest palpation & inspection: normal inspection of the chest Resp Effort & Inspection: normal respiratory effort Cardio Rate: regular rate Rhythm: regular rhythm Heart sounds: S1 normal heart sound present, S2 normal heart sound present and no murmurs GI Palpation (GI): Soft to palpation and nontender Psych Appearance: grossly normal and well kempt Speech and movement: Normal speech and movement present Affect: normal affect Attitude: cooperative Assessment and Plan Assessment & Plan (1) Arthritis: Code(s): M19.90 - Unspecified osteoarthritis, unspecified site Plan: XRs ordered (2) Bilateral shoulder pain: Code(s): M25.511 - Pain in right shoulder; M25.512 - Pain in left shoulder Plan: XRs ordered (3) Bilateral knee pain: Code(s): M25.561 - Pain in right knee; M25.562 - Pain in left knee Plan: XRs ordered (4) Physical exam, annual: Code(s): Z00.00 - Encounter for general adult medical examination without abnormal findings Plan The patient agreed to the use of a nuclear medicine medical director for this encounter. Scribed for OPAL Linder- by Olivia Mccain nuclear medicine medical director, on 06/22/2023 at 16:35 EST. Orders: Referrals Orthopedics Referral M19.90 - Unspecified osteoarthritis, unspecified site, M25.511 - Pain in right shoulder, M25.512 - Pain in left shoulder, M25.561 - Pain in right knee, M25.562 - Pain in left knee Medications: New trazodone 50 mg PO BID 180 tabs 0RF 90 days duloxetine 60 mg PO DAILY 90 caps 0RF 90 days finasteride 5 mg PO DAILY 90 tabs 0RF tadalafil (Cialis) 5 mg PO DAILY 90 tabs 0RF Changed From amlodipine 10 mg PO DAILY 30 days 30 tabs 0RF To amlodipine 10 mg PO DAILY 90 tabs 0RF 90 days From clonidine HCl 0.1 mg PO BID 30 days 60 tabs 1RF To clonidine HCl 0.1 mg PO BID 180 tabs 1RF 90 days Coding Level of Care Code New Pt Prev Care 40-64y(01511) Diagnoses Arthritis M19.90 Bilateral shoulder pain M25.511; M25.512 Bilateral knee pain M25.561; M25.562 Physical exam, annual Z00.00 Additional Codes KAREN-7 Assessment Billing - KAREN-7 Assessment Tool: KAREN-7 Assessment [id number] ([id number])
[2023-06-22 16:22] VITALS: BP 130/78; PULSE 82; O2SAT 96; BMI 25.0
== END 2023-06-22 17:07 | disposition home or self-care (01) ==
PROVIDERS: PCP Nurse Practitioner Family; Visit Provider Nurse Practitioner Family
DX: Z00.00 Encounter for general adult medical examination without abnormal findings (principal); M19.90 Unspecified osteoarthritis, unspecified site; M25.511 Pain in right shoulder; M25.512 Pain in left shoulder; M25.561 Pain in right knee; M25.562 Pain in left knee
CPT/HCPCS: 99386

== ENCOUNTER 2023-07-05 13:39 | Outpatient (REF) | payer MEDICARE, SELFPAY ==
[2023-07-05 14:39] LABS: Alanine Aminotransferase 14 U/L (0-40); Albumin Level 4.4 g/dL (3.5-5.0); Alkaline Phosphatase 80 U/L (39-117); Anion Gap 11 (12-20); Aspartate Amino Transferase 20 U/L (5-37); Bilirubin Total 0.9 mg/dL (0.0-1.0); Blood Urea Nitrogen 11 mg/dL (9-16); Calcium 9.7 mg/dL (8.4-10.2); Carbon Dioxide 27 mmol/L (22-29); Chloride 106 mmol/L (96-108); Cholesterol 169 mg/dL (<200); Estimated Glomerular Filt Rate > 60; Glucose Random 88 mg/dL (60-115); HDL Cholesterol 56 mg/dL (>40); LDL Cholesterol Calculated 106 mg/dL (<100); Potassium 4.1 mmol/L (3.3-5.1); Sodium 140 mmol/L (135-145); Total Protein 7.4 g/dL (6.5-8.0); Triglycerides 37 mg/dL (<150)
[2023-07-05 14:56] LABS: Thyroid Stimulating Hormone 1.06 uIU/mL (0.32-4.0)
== END 2023-07-05 13:40 | disposition home or self-care (01) ==
LOC: HO.LAB 13:39
PROVIDERS: PCP Nurse Practitioner Family; Visit Provider Internal Medicine Cardiovascular Disease
DX: Z71.2 Person consulting for explanation of examination or test findings (principal)
CPT/HCPCS: 36415; 80053; 80061; 84443

== ENCOUNTER 2023-07-29 09:08 | Outpatient (REF) | payer MEDICARE, MEDICAID, SELFPAY ==
--- NOTE | ~2023-07-29 | XR_ITS ---
EXAMINATION: XR PELVIS XR AP STANDING BILATERAL KNEES XR KNEE, RIGHT XR KNEE, LEFT CLINICAL INFORMATION: Pain in bilateral knees. Pain in unspecified hip. COMPARISON: None available. TECHNIQUE: AP standing, lateral and sunrise views of each knee. 2 AP views of the pelvis. FINDINGS: LEFT KNEE: Bones are diffusely demineralized. Trace joint effusion. Mild narrowing of the medial compartment with small medial marginal osteophytes. Transverse sclerosis in the proximal diametaphysis of the tibia, possibly related to prior trauma of indeterminate age. Correlation with clinical exam and prior imaging of possible recommended to determine further management. RIGHT KNEE: The bones are diffusely demineralized. Mild narrowing of the medial compartment with tiny medial marginal osteophytes. Small joint effusion. Small posterior patellar osteophytes. AP PELVIS: Status post left hip total arthroplasty with 2 acetabular screws. Hardware appears intact on the 2 AP views provided. Extensive heterotopic ossification adjacent to the left hip joint. Direct correlation with prior images is recommended and if prior images are provided, an addendum will be dictated. In the absence of prior images, CT scan or MRI should be considered for further evaluation. Moderate degenerative changes right hip. Sclerosis along right intertrochanteric region of indeterminate etiology and age. Abundant hypertrophic change and deformity along the lateral aspect of the right iliac wing, possibly related to prior trauma. Moderate degenerative changes in the bilateral sacroiliac joints, right greater than left. Degenerative changes on very limited imaging of the lower lumbar spine. XR/XR knee standing BI IMPRESSION: 1. Mild degenerative changes in the bilateral knees. 2. Transverse sclerosis in the proximal diametaphysis of the left tibia, possibly related to prior trauma of indeterminate age. Correlation with clinical exam and prior imaging of possible recommended to determine further management. 3. Status post left hip total arthroplasty with 2 acetabular screws. Hardware appears intact on the 2 AP views provided. Extensive heterotopic ossification adjacent to the left hip joint. 4. Moderate degenerative changes in the right hip. Sclerosis along right intertrochanteric region of indeterminate etiology and age. 5. Abundant hypertrophic change and deformity along the lateral aspect of the right iliac wing, possibly related to prior trauma. 6. Multi focal deformities as described above possibly related to prior trauma; however, direct correlation with prior images is recommended and if further images are provided an addendum will be dictated. Correlation with clinical exam and history recommended to determine further management including possible additional imaging with MRI. This study was presented August 01, 2023 for interpretation. PSA staff will provide results to referring provider at this time.
== END 2023-07-29 09:09 | disposition home or self-care (01) ==
LOC: HO.HOSX 09:08
PROVIDERS: Visit Provider Physician Assistant
DX: M17.0 Bilateral primary osteoarthritis of knee (principal); M21.70 Unequal limb length (acquired), unspecified site; Z96.642 Presence of left artificial hip joint
CPT/HCPCS: 20610; 72170; 73560; 73565; 99202; J1040

== ENCOUNTER 2023-07-29 09:43 | Outpatient (AMB) | payer MEDICARE, SELFPAY ==
--- NOTE | 2023-07-29 10:16 | MHC.OFFVIS ---
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 Patient reports that he has constant pain that has been present for a while. States he moved from [place] where he was receiving gel injections which provide him with relief. His last gel injection was 6 months ago and he is requesting to repeat gel injections. 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 He states at 10 yo he use to run track, he remembers he fell on his kneecap and later on they found he had an injury to the left hip that went unnoticed and he was then placed in traction to help with lengthening the bone. He later had JAKUB followed by revision in 2005 and has been doing well with some limited motion and leg length discrepancy. He currently states he has constant pain in his bilateral knee which is aggravated with going up and down stairs. He also c/o instability in his left knee and uses his right knee to compensate his left. He reports he was receiving gel injections when he was in [place] which provided him relief. His last gel injection was 6 months ago at [facility]. [facility] Medical History (Updated 07/29/23 @ 19:44 by Marquise Leggett PA-C) Depression Anxiety Prostate troubles Hypertension Surgical History (Updated 07/29/23 @ 19:44 by Marquise Leggett PA-C) History of left hip replacement Family History Other No pertinent family history Social History (Reviewed 07/29/23 @ 10:22 by Amanda Willis [facility]) Housing: House Alcohol intake: never Patient Tobacco Use Status: Never used Tobacco e-Cigarette/Vaping Use: Never Used service: No Current occupational status: unemployed Cognitive needs: No Hearing needs: No Vision needs: No Review of Systems Const All systems reviewed & are unremarkable except as noted in HPI and below Physical Exam Vital Signs: BMI result Body Mass Index 23.8 Const General: cooperative, healthy appearing, comfortable, no acute distress, well developed and alert Orientation/consciousness: patient oriented x3 HEENT Head: Yes normal to inspection, Yes normocephalic and Yes atraumatic Eyes General: appearance normal, both eyes and all related structures Resp Effort & Inspection: normal respiratory effort and able to speak in complete sentences Cardio Rate: regular rate Peripheral pulses: Peripheral pulses 2+ throughout GI Palpation (GI): Soft to palpation Skin Lesions: no lesions Rashes: no rashes Neuro General: patient oriented x3 Extrem Other: Bilateral knee: Skin intact, no erythema or joint effusion. Tenderness along the medial and lateral joint line. Full ROM with crepitus. Negative Vin?s. No ligamentous laxity. NVI. Office Procedures Joint Injection/Drain Joint Injection/Drain Primary Site: right knee Secondary Site: left knee Prep: site was prepped using aseptic technique, ethochloride spray was applied and injection warnings given Injected: 80 mg of, DepoMedrol, with 8 mL of, 1% plain lidocaine and in the joint Approach Used: anterolateral Procedure: The patient tolerated the procedure well and there was some relief with the local anesthesia Coding 77602 - Glenohumeral/Tronchanteric Bursa/Intraarticular Procedure code (CPT) selection complete Results Reviewed Results Reviewed: Xrays were obtained in the office today and personally reviewed by me of both knees and pelvis 1. mild to moderate oa bilat knee 2. evidence of leg length discrepancy 3. evidence of left hip revision hip arthroplasty without signs of loosening Assessment & Plan Assessment & Plan (1) Osteoarthritis of knees, bilateral: Code(s): M17.0 - Bilateral primary osteoarthritis of knee Qualifiers: Osteoarthritis type: primary Qualified Code(s): M17.0 - Bilateral primary osteoarthritis of knee (2) History of left hip hemiarthroplasty: Code(s): Z96.642 - Presence of left artificial hip joint (3) Leg length discrepancy: Code(s): M21.70 - Unequal limb length (acquired), unspecified site Plan We discussed options today which include steroid injection. They did consent to move forward with the bilateral knee injection, which was tolerated well. I recommended rest, ice and elevation and OTC anti-inflammatories PRN for discomfort. If symptoms persist or worsens over the next 6-8 weeks, patient will contact the office, otherwise follow-up as needed. Orders: Orders XR knee LT 2V Today M25.569 - Pain in unspecified knee Lorena K Michela, PA-C XR knee standing BI Today M25.561 - Pain in right knee, M25.562 - Pain in left knee Ta-Sangita Betsey, PA-C XR knee RT 2V Today M25.569 - Pain in unspecified knee Ta-Sangita Meadriana, PA-C XR knee LT 2V Today M25.562 - Pain in left knee Ta-Sangita Meuse, PA-C XR pelvis 1-2V Today M25.559 - Pain in unspecified hip Ta-Sangita Meuse, PA-C XR knee standing BI Today M25.569 - Pain in unspecified knee Lorena K Michela, PA-C XR knee RT 2V Today M25.569 - Pain in unspecified knee Lorena K Michela, PA-C Patient Instructions: Scribed for Marquise Leggett PA-C, by Al Roger medical physics teacher, on 07/29/2023 at 10:00 AM EST. I, Marquise Leggett PA-C, have personally reviewed and agree with the information entered by the scribe. Coding Level of Care Code New Pt Level 3 (67328) Diagnoses Primary osteoarthritis of both knees M17.0 Osteoarthritis type: primary History of left hip hemiarthroplasty Z96.642 Leg length discrepancy M21.70 CPT Codes Coding - Joint 7: 83080 - Glenohumeral/Tronchanteric Bursa/Intraarticular ([id number])
[2023-07-29 10:23] VITALS: BMI 23.8
== END 2023-07-29 12:01 | disposition home or self-care (01) ==
PROVIDERS: PCP Nurse Practitioner Family; Visit Provider Physician Assistant
DX: M17.0 Bilateral primary osteoarthritis of knee (principal); Z96.642 Presence of left artificial hip joint; M21.70 Unequal limb length (acquired), unspecified site
CPT/HCPCS: 20610; 99203

== ENCOUNTER 2023-08-12 13:12 | Outpatient (REF) | payer MEDICARE, MEDICAID, SELFPAY | END 2023-08-12 13:13 | disposition home or self-care (01) | LOC: HO.HOSX 13:12 | PROVIDERS: Visit Provider Physician Assistant | DX: Z13.89 Encounter for screening for other disorder (principal) ==

== ENCOUNTER 2023-08-15 10:59 | Outpatient (REF) | payer MEDICARE, MEDICAID, SELFPAY ==
--- NOTE | ~2023-08-15 | XR_ITS ---
EXAMINATION: XR SHOULDER, LEFT CLINICAL INFORMATION: Pain. COMPARISON: None available. TECHNIQUE: AP neutral, scapula Y and axillary views of the right shoulder are submitted. FINDINGS: Bony alignment and mineralization are normal. The glenohumeral joint is intact and shows mild osteoarthritic change. The acromioclavicular and coracoclavicular intervals are normal. There is very mild osteoarthritic change of the acromioclavicular joint. No fracture or dislocation is seen. There is no focal soft tissue calcification or foreign body. No left pneumothorax is seen. XR/XR shoulder LT min 2V IMPRESSION: 1. No fracture or dislocation is seen. 2. There is mild osteoarthritic change of the left glenohumeral joint, and very mild osteoarthritic change is seen of the left acromioclavicular joint.
--- NOTE | ~2023-08-15 | XR_ITS ---
EXAMINATION: XR SHOULDER, RIGHT CLINICAL INFORMATION: Pain. COMPARISON: None available. TECHNIQUE: AP neutral, scapula Y and axillary views of the right shoulder are submitted. FINDINGS: The bones and soft tissues are normal. No fracture. Glenohumeral and acromioclavicular alignment is anatomic with normal joint space. No abnormal soft tissue calcifications. XR/XR shoulder RT min 2V IMPRESSION: Normal right shoulder.
== END 2023-08-15 11:00 | disposition home or self-care (01) ==
LOC: HO.HOSX 10:59
PROVIDERS: Visit Provider Physician Assistant
DX: M19.011 Primary osteoarthritis, right shoulder (principal); M19.012 Primary osteoarthritis, left shoulder
CPT/HCPCS: 20610; 73030; 99212; J1020

== ENCOUNTER 2023-08-15 14:09 | Outpatient (AMB) | payer MEDICARE, MEDICAID, SELFPAY ==
--- NOTE | 2023-08-15 14:37 | MHC.OFFVIS ---
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 Patient reports his pain has been present for a while and was receiving bilateral shoulder injections from [facility]. States injections provided him with relief with the last one being around 6 months ago. Allergies No Known Allergies Allergy (Verified 08/15/23 14:52) HPI NEWPROB- B/L SHOULDER PAIN HPI Details 63 year old male presents today for an evaluation of bilateral shoulder pain for several years. He states he has done a lot of exercise and work overhead which has caused ongoing shoulder pain. He states the right is worse than the left. He has pain with sleeping. He tries to find comfortable positions while sleeping but it is quite difficult. He has a history of steroid injections in the past which have provided him with some relief but feels the pain always comes back. [facility] Medical History (Updated 08/15/23 @ 16:00 by Marquise Leggett PA-C) Depression Anxiety Prostate troubles Hypertension Surgical History History of left hip replacement Family History Other No pertinent family history Social History Housing: House Alcohol intake: never Patient Tobacco Use Status: Never used Tobacco e-Cigarette/Vaping Use: Never Used service: No Current occupational status: unemployed Cognitive needs: No Hearing needs: No Vision needs: No Review of Systems Const All systems reviewed & are unremarkable except as noted in HPI and below Physical Exam Vital Signs: BMI result Body Mass Index 23.8 Extrem Other: bilat shoulder normal to inspection. Tenderness over the bicipital groove and along deltoid region of the shoulder. + Obriens on the right. FF to 175, ER to 90, IR to S1. 5/5 RTC strength, negative shin, cross body abduction. NVI. Office Procedures Joint Injection/Drain Joint Injection/Drain Primary Site: right shoulder Secondary Site: left shoulder Prep: site was prepped using aseptic technique, ethochloride spray was applied and injection warnings given Injected: 40 mg of, DepoMedrol, with 8 mL of, 1% plain lidocaine and in the subcromial space Approach Used: posterolateral Procedure: The patient tolerated the procedure well and there was some relief with the local anesthesia Coding 59263 - Glenohumeral/Tronchanteric Bursa/Intraarticular Procedure code (CPT) selection complete Results Reviewed Results Reviewed: Xrays were obtained in the office today and personally reviewed by of garima shoulder show mild ghj and aj oa Assessment & Plan Assessment & Plan (1) Osteoarthritis of shoulders, bilateral: Code(s): M19.011 - Primary osteoarthritis, right shoulder; M19.012 - Primary osteoarthritis, left shoulder Qualifiers: Osteoarthritis type: primary Qualified Code(s): M19.011 - Primary osteoarthritis, right shoulder; M19.012 - Primary osteoarthritis, left shoulder Plan: We discussed options today, which include steroid injection. The patient did consent to move forward with the injection, which was tolerated well.? I recommended rest, ice and elevation and OTC antiinflammatories prn for discomfort. If symptoms persist over the next 6-8 weeks, they will contact our office, otherwise, prn Orders: Orders XR shoulder RT min 2V Today M25.511 - Pain in right shoulder XR shoulder LT min 2V Today M25.512 - Pain in left shoulder Coding Level of Care Code Est Pt Level 3 (76579) Diagnoses Primary osteoarthritis of both shoulders M19.011; M19.012 Osteoarthritis type: primary CPT Codes Coding - Joint 7: 71482 - Glenohumeral/Tronchanteric Bursa/Intraarticular ([id number])
[2023-08-15 14:59] VITALS: BMI 23.8
== END 2023-08-15 15:28 | disposition home or self-care (01) ==
PROVIDERS: PCP Nurse Practitioner Family; Visit Provider Physician Assistant
DX: M19.011 Primary osteoarthritis, right shoulder (principal); M19.012 Primary osteoarthritis, left shoulder
CPT/HCPCS: 20610; 99213

== ENCOUNTER 2023-09-09 11:10 | Outpatient (AMB) | payer MEDICARE, MEDICAID, SELFPAY ==
--- NOTE | 2023-09-09 11:17 | MHC.OFFVIS ---
Vital Signs 09/09/23 11:19 Height 5 ft 9 in Weight 161 lb BMI 23.8 Intake Visit Reasons: INJ- bilateral knee Durolane injection Intake Note: Shiv 63 yr old male presents today for bilateral durolane injection. Allergies No Known Allergies Allergy (Verified 09/09/23 11:20) HPI HPI INJ- bilateral knee Durolane injection: Details: 63-year-old male who returns to the office today for bilateral knee Durolane injection. [facility] Medical History (Updated 08/15/23 @ 16:00 by Marquise Leggett PA-C) Depression Anxiety Prostate troubles Hypertension Surgical History History of left hip replacement Family History (Reviewed 06/22/23 @ 18:23 by Abner Ramos [facility]) Other No pertinent family history Social History Housing: House Alcohol intake: never Patient Tobacco Use Status: Never used Tobacco e-Cigarette/Vaping Use: Never Used service: No Current occupational status: unemployed Cognitive needs: No Hearing needs: No Vision needs: No Review of Systems Const All systems reviewed & are unremarkable except as noted in HPI and below Physical Exam Vital Signs: BMI result Body Mass Index 23.8 Extrem Other: Bilateral knee: Skin intact, no erythema or joint effusion. Tenderness along the medial and lateral joint line. Full ROM with crepitus. Negative Vin?s. No ligamentous laxity. NVI. Office Procedures Joint Injection/Drain Joint Injection/Drain Details: durolane bilat knee Primary Site: right knee Secondary Site: left knee Prep: site was prepped using aseptic technique, ethochloride spray was applied and injection warnings given Approach Used: anterolateral Procedure: The patient tolerated the procedure well Coding 24281 - Glenohumeral/Tronchanteric Bursa/Intraarticular Procedure code (CPT) selection complete Assessment & Plan Assessment & Plan (1) Osteoarthritis of shoulders, bilateral: Code(s): M19.011 - Primary osteoarthritis, right shoulder; M19.012 - Primary osteoarthritis, left shoulder Category: Medical Qualifiers: Osteoarthritis type: primary Qualified Code(s): M19.011 - Primary osteoarthritis, right shoulder; M19.012 - Primary osteoarthritis, left shoulder Plan We discussed options today which include steroid injection. They did consent to move forward with the bilateral knee Durolane injection, which was tolerated well. I recommended rest, ice and elevation and OTC anti-inflammatories PRN for discomfort. If symptoms persist or worsens over the next 6-8 weeks, patient will contact the office, otherwise follow-up as needed. Patient Instructions: Scribed for Marquise Leggett PA-C, by Al Roger medical office technology instructor, on 09/09/2023 at 11:00 AM EST. I, Marquise Leggett PA-C, have personally reviewed and agree with the information entered by the scribe.
[2023-09-09 11:19] VITALS: BMI 23.8
== END 2023-09-09 11:42 | disposition home or self-care (01) ==
PROVIDERS: PCP Nurse Practitioner Family; Visit Provider Physician Assistant
DX: M17.0 Bilateral primary osteoarthritis of knee (principal)
CPT/HCPCS: 20610

== ENCOUNTER → 2023-09-09 11:10 | Outpatient (BNVA) | payer MEDICARE, MEDICAID, SELFPAY | PROVIDERS: PCP Nurse Practitioner Family; Visit Provider Physician Assistant | DX: M17.0 Bilateral primary osteoarthritis of knee (principal) | CPT/HCPCS: 20610; J7318 ==

== ENCOUNTER 2023-11-30 12:29 | Outpatient (AMB) | payer MEDICARE, MEDICAID, SELFPAY ==
--- NOTE | 2023-11-30 12:52 | MHC.OFFVIS ---
Vital Signs 11/30/23 12:53 Height 5 ft 9 in Weight 161 lb BMI 23.8 Intake Visit Reasons: Inj-B/L shoulder injec-last inject 08/15/23 Intake Note: Shiv rai 63 year old male presents today for a follow up of bilateral shoulder pain, last injection on 08/15/23. Patient reports injection provided him with some relief, stating most of his shoulder pain comes at night with sleeping. He would like to repeat injections. Allergies No Known Allergies Allergy (Verified 11/30/23 12:55) HPI HPI Inj-B/L shoulder injec-last inject 08/15/23: Details: 63-year-old male who returns to the office today for a follow-up of bilateral shoulder pain. He currently states he has pain in him shoulders that is aggravated at night with sleeping. He had his last right shoulder injection on 08/15/23 that provided him mild relief. He would like to repeat the injections today. [facility] Medical History (Updated 08/15/23 @ 16:00 by Marquise Leggett PA-C) Depression Anxiety Prostate troubles Hypertension Surgical History History of left hip replacement Family History Other No pertinent family history Social History Housing: House Alcohol intake: never Patient Tobacco Use Status: Never used Tobacco e-Cigarette/Vaping Use: Never Used service: No Current occupational status: unemployed Cognitive needs: No Hearing needs: No Vision needs: No Review of Systems Const All systems reviewed & are unremarkable except as noted in HPI and below Physical Exam Vital Signs: BMI result Body Mass Index 23.8 Extrem Other: bilat shoulder normal to inspection. Tenderness over the bicipital groove and along deltoid region of the shoulder. + Obriens on the right. FF to 175, ER to 90, IR to S1. 5/5 RTC strength, negative shin, cross body abduction. NVI. Office Procedures Joint Injection/Drain Joint Injection/Drain Primary Site: right shoulder Secondary Site: left shoulder Prep: site was prepped using aseptic technique, ethochloride spray was applied and injection warnings given Injected: 80 mg of, DepoMedrol, with 8 mL of, 1% plain lidocaine and in the subcromial space Approach Used: posterolateral Procedure: The patient tolerated the procedure well and there was some relief with the local anesthesia Coding 09623 - Glenohumeral/Tronchanteric Bursa/Intraarticular Procedure code (CPT) selection complete Assessment & Plan Assessment & Plan (1) Osteoarthritis of shoulders, bilateral: Code(s): M19.011 - Primary osteoarthritis, right shoulder; M19.012 - Primary osteoarthritis, left shoulder Category: Medical Qualifiers: Osteoarthritis type: primary Qualified Code(s): M19.011 - Primary osteoarthritis, right shoulder; M19.012 - Primary osteoarthritis, left shoulder Plan We discussed options today, which include steroid injection. The patient did consent to move forward with the bilateral shoulder injection, which was tolerated well. I recommended rest, ice, and elevation and OTC anti-inflammatories as needed for discomfort. If symptoms persist or worsen over the next 6-8 weeks, patient will contact the office, otherwise follow-up as needed. ? Patient Instructions: Scribed for Marquise Leggett PA-C, by Al Roger medical supervisor, on 11/30/2023 at 12:45 PM EST.? I, Marquise Leggett PA-C, have personally reviewed and agree with the information entered by the scribe. Coding Level of Care Code Est Pt Level 3 (08974) Diagnoses Primary osteoarthritis of both shoulders M19.011; M19.012 Osteoarthritis type: primary CPT Codes Coding - Joint 7: 99504 - Glenohumeral/Tronchanteric Bursa/Intraarticular ([id number])
[2023-11-30 12:53] VITALS: BMI 23.8
== END 2023-11-30 15:35 | disposition home or self-care (01) ==
PROVIDERS: PCP Nurse Practitioner Family; Visit Provider Physician Assistant
DX: M19.011 Primary osteoarthritis, right shoulder (principal); M19.012 Primary osteoarthritis, left shoulder
CPT/HCPCS: 20610; 99213

== ENCOUNTER → 2023-11-30 12:29 | Outpatient (BNVA) | payer MEDICARE, MEDICAID, SELFPAY | PROVIDERS: PCP Nurse Practitioner Family; Visit Provider Physician Assistant | DX: M19.011 Primary osteoarthritis, right shoulder (principal); M19.012 Primary osteoarthritis, left shoulder | CPT/HCPCS: 20610; 99212; J1010 ==

== ENCOUNTER 2024-01-19 16:10 | Outpatient (REF) | payer MEDICARE, MEDICAID, SELFPAY | END 2024-01-19 16:11 | disposition home or self-care (01) | LOC: HO.LAB 16:10 | PROVIDERS: PCP Nurse Practitioner Family; Visit Provider Physician Assistant Medical | DX: Z12.5 Encounter for screening for malignant neoplasm of prostate (principal); N40.1 Benign prostatic hyperplasia with lower urinary tract symptoms | CPT/HCPCS: 36415; 84153 ==

== ENCOUNTER 2024-02-18 12:30 | Outpatient (REF) | payer MEDICARE, MEDICAID, SELFPAY ==
--- NOTE | ~2024-02-18 | MR_ITS ---
EXAMINATION: MR SHOULDER WITHOUT CONTRAST, RIGHT CLINICAL INFORMATION: Right shoulder pain, weakness, numbness. Decreased range of motion. Failed conservative management. COMPARISON: Right shoulder radiographs dated 08/15/2023. TECHNIQUE: MRI of the shoulder without contrast was performed on a high-field scanner. FINDINGS: ROTATOR CUFF: Complete, full-thickness tear of the supraspinatus tendon with extension through the majority of the infraspinatus tendon. There are posterior infraspinatus tendon fibers remaining intact. Overall, the tearing measures up to 5.0 x 5.3 cm (AP x ML) with retraction of the torn tendon fibers proximal to the glenohumeral articulation. Edema within the supraspinatus and infraspinatus muscles, consistent with acute muscle strains. Moderate subscapularis tendinosis with articular surface and intrasubstance partial tearing measuring up to 5 cm in ML dimension. No muscle atrophy or fatty infiltration. BICEPS: Absence of the proximal long head biceps tendon, consistent with a complete tear and tendon retraction. CORACOACROMIAL ARCH: The undersurface of the acromion is curved with no subacromial spur. [id number] acromioclavicular osteoarthritis. LABRUM/CAPSULE: Attenuation and blunting to the superior labrum. Fluid signal within the undersurface of the anterior, anteroinferior, inferior, posteroinferior, and posterior labrum, consistent with nondisplaced undersurface tearing. Intact inferior joint capsule. GLENOHUMERAL JOINT/MARROW: Mild articular cartilage signal heterogeneity with small marginal osteophytes. Marrow edema within the greater tuberosity. Moderate joint effusion with synovitis. MR/MR shoulder RT wo con IMPRESSION: 1. Complete, full-thickness tear of the supraspinatus tendon with extension through the majority of the infraspinatus tendon. The torn tendon fibers are retracted proximal to the glenohumeral articulation. Acute supraspinatus and infraspinatus muscle strains. Moderate subscapularis tendinosis with articular surface and intrasubstance partial tearing. 2. Complete tear and retraction of the proximal long head biceps tendon. 3. [id number] acromioclavicular osteoarthritis. 4. Nondisplaced undersurface tearing of the anterior, anteroinferior, inferior, posteroinferior, and posterior labrum. 5. Mild glenohumeral osteoarthritis. Moderate joint effusion with synovitis. Electronically signed by: Magdiel Reyes MD 02/21/2024 08:56 PM EDT
== END 2024-02-18 12:31 | disposition home or self-care (01) ==
LOC: HO.MRI 12:30
PROVIDERS: PCP Nurse Practitioner Family; Visit Provider Physician Assistant
DX: M77.8 Other enthesopathies, not elsewhere classified (principal)
CPT/HCPCS: 73221

== ENCOUNTER 2024-02-20 10:00 | Outpatient (AMB) | payer MEDICARE, MEDICAID, SELFPAY ==
[2024-02-20 10:11] VITALS: BP 152/86; PULSE 78; O2SAT 98; BMI 23.5
--- NOTE | 2024-02-20 10:11 | A.OFFPC_ITS ---
Vital Signs 02/20/24 10:11 Height 5 ft 9 in Weight 159 lb 4 oz BMI 23.5 BP 152/86 H Blood Pressure Location Rt brachial Position Sitting Pulse 78 Pulse Source Pulse Oximeter Pulse Oximetry (%) 98 Oxygen Delivery Method Room Air Intake Visit Reasons: F/u meds Intake Note: Pt is here to follow up on meds Allergies No Known Allergies Allergy (Verified 02/20/24 10:12) Medication List - Last Reconciled 02/20/24 by LALO Davidson amlodipine 10 mg PO DAILY 90 days blood pressure kit-extra large use daily, for HTN buspirone 30 mg PO BID dextroamphetamine-amphetamine 20 mg (Adderall) 20 mg PO BID 30 days finasteride 5 mg PO DAILY losartan 25 mg PO DAILY tadalafil (Cialis) 5 mg PO DAILY Tobacco use date assessed: 02/20/24 Dental Screening Dental Screen Date: 02/20/24 Did you have a dental visit in the last 12 months?: Yes Did you have a dental problem in the last 6 months where you did not have access to dental care?: No Was dental information given to patient?: Patient has dentist HPI F/u meds HPI Details HTN: Blood pressure is managed with amlodipine 10mg. BP is elevated today. Will add losartan 25mg. Will have pt monitor his blood pressure at home and record readings. Denies chest pain, shortness of breath, headache, dizziness, and blurred vision. Pt sees a therapist and a psychiatrist for severe anxiety and depression. He has difficulty leaving his house due to this. He does garden. Pt appears anxious in room today. Denies any SI and HI. PFSH Medical History Depression Anxiety Prostate troubles Hypertension Surgical History History of left hip replacement Family History Other No pertinent family history Social History Housing: House Alcohol intake: never Patient Tobacco Use Status: Never used Tobacco e-Cigarette/Vaping Use: Never Used service: No Current occupational status: unemployed Cognitive needs: No Hearing needs: No Vision needs: No Questionnaire PHQ-9 Over the last 2 weeks, how often have you been bothered by any of the following problems? 55698 - PHQ-9 Billing: Patient declined-do not bill Source: Developed by Drs. Vickey Barlow, Loco Vazquez and colleagues, with an educational zen from [employer]. Thrive Questionnaire Date Thrive assessed: 06/22/23 KAREN-7 AMB Questionnaire KAREN-7 Date KAREN - 7 assessed: 06/22/23 Source: Developed by Drs. Vickey Barlow, Bernie Sotelo, Loco Seymour and colleagues, with an educational zen from [employer]. KAREN-7 Assessment Billing KAREN-7 Assessment Tool: pt declined-do not bill Review of Systems Const Reports as per HPI Physical exam (Primary Care) Vital Signs: Last Vital Signs Pulse 78 02/20/24 10:11 BP 152/86 H 02/20/24 10:11 Pulse Ox 98 02/20/24 10:11 Oxygen Delivery Method Room Air 02/20/24 10:11 BMI result Body Mass Index 23.5 Tobacco/Smoking Status: Tobacco use Status Tobacco use date assessed 02/20/24 02/20/24 10:13 Patient Tobacco Use Status Never used Tobacco 02/20/24 10:13 e-Cigarette/Vaping Use Never Used 02/20/24 10:13 Thrive Assessment: Date of Thrive Assessment Date Thrive assessed 06/22/23 02/20/24 10:13 Const General: cooperative Orientation/consciousness: patient oriented x3 Resp Effort & Inspection: normal respiratory effort Auscultation: clear to auscultation bilaterally Cardio Rate: regular rate Rhythm: regular rhythm Heart sounds: S1 normal heart sound present and S2 normal heart sound present Neuro General: patient oriented x3 Psych Appearance: grossly normal Mental Status: mental status grossly normal Speech and movement: Normal speech and movement present Affect: normal affect Attitude: cooperative Thought process: Normal thought process present Thought content: Normal thought content present Insight: Good insight present (Psych) Judgement: Good judgement present (Psych) Assessment and Plan Assessment & Plan (1) Hypertension: Code(s): I10 - Essential (primary) hypertension Qualifiers: Hypertension type: primary hypertension Qualified Code(s): I10 - Essential (primary) hypertension Plan: Starting losartan, pt will monitor his BP at home (2) Depression: Code(s): F32.A - Depression, unspecified Qualifiers: Depression Type: major depressive disorder Major depression episode severity: severe Major depression recurrence: unspecified whether recurrent Plan: Seeing a therapist and psychiatrist (3) Anxiety: Code(s): F41.9 - Anxiety disorder, unspecified Plan: Seeing a therapist and psychiatrist denies any SI or HI Plan The patient agreed to the use of a medical office asst for this encounter. Scribed for OPAL Linder- by Olivia Mccain medical office asst, on 02/20/2024 at 10:35 EST. Orders: Orders Complete Blood Count Auto Diff Today F32.A - Depression, unspecified, F41.9 - Anxiety disorder, unspecified, I10 - Essential (primary) hypertension Comprehensive Dane. Panel Fast Today F32.A - Depression, unspecified, F41.9 - Anxiety disorder, unspecified, I10 - Essential (primary) hypertension UA CC w/rflx Micro + Cult Today F32.A - Depression, unspecified, F41.9 - Anxiety disorder, unspecified, I10 - Essential (primary) hypertension TSH reflex Free T4 Today F32.A - Depression, unspecified, F41.9 - Anxiety disorder, unspecified, I10 - Essential (primary) hypertension Lipid Panel Today F32.A - Depression, unspecified, F41.9 - Anxiety disorder, unspecified, I10 - Essential (primary) hypertension Medications: New losartan 25 mg PO DAILY 90 tabs 0RF blood pressure kit-extra large use daily, for HTN 1 ea 0RF HTN I10 - Essential (primary) hypertension Coding Level of Care Code Est Pt Level 3 (65505) Diagnoses Primary hypertension I10 Hypertension type: primary hypertension Depression F32.A Depression Type: major depressive disorder Major depression episode severity: severe Major depression recurrence: unspecified whether recurrent Anxiety F41.9
== END 2024-02-20 11:16 | disposition home or self-care (01) ==
PROVIDERS: PCP Nurse Practitioner Family; Visit Provider Nurse Practitioner Family
DX: I10 Essential (primary) hypertension (principal); F32.A Depression, unspecified; F41.9 Anxiety disorder, unspecified

== ENCOUNTER → 2024-02-20 10:00 | Outpatient (BNVA) | payer MEDICARE, MEDICAID, SELFPAY | PROVIDERS: PCP Nurse Practitioner Family; Visit Provider Nurse Practitioner Family | DX: I10 Essential (primary) hypertension (principal); F32.A Depression, unspecified; F41.9 Anxiety disorder, unspecified; Z79.899 Other long term (current) drug therapy | CPT/HCPCS: 99212 ==

== ENCOUNTER 2024-03-09 11:12 | Outpatient (REF) | payer MEDICARE, MEDICAID, SELFPAY ==
[2024-03-09 13:15] LABS: MANUAL DIFF FLAG NO
[2024-03-09 13:21] LABS: Basophils Absolute Auto 0.1 X10*3/uL (0.0-0.2); Basophils Percent Auto 1.8 % (0-2); Hematocrit 43.4 % (42.0-52.0); Hemoglobin 13.7 g/dl (14.0-18.0); Imm Gran Abs Auto 0.01 X10*3/uL (0.00-0.03); Imm Gran Pct Auto 0.3 % (0.0-0.4); Lymphocytes Absolute Auto 1.8 X10*3/uL (1.2-4.9); Lymphocytes Percent Auto 44.9 % (20-40); Mean Corpuscular HGB Conc 31.6 g/dl (31.0-36.0); Mean Corpuscular Hemoglobin 27.5 pg (27.0-33.0); Mean Corpuscular Volume 87.1 fL (80.0-98.0); Monocytes Absolute Auto 0.4 X10*3/uL (0.1-1.2); Monocytes Percent Auto 9.9 % (2-11); Neutrophils Absolute Auto 1.7 x10*3/uL (2.0-8.3); Neutrophils Percent Auto 42.1 % (45-73); Platelet Count 302 X10*3/uL (160-400); Red Blood Count 4.98 X10*6/uL (4.60-5.80); Red Cell Distribution Width 13.2 % (11.0-16.0); White Blood Count 3.9 X10*3/uL (4.8-10.8)
[2024-03-09 13:23] LABS: Appearance Urine Clear; Color Urine Yellow; Glucose Urine UA Negative (Negative); Leukocyte Esterase Urine Negative (Negative); Nitrite Urine Negative (Negative); PH 6.5 (5.0-9.0); Urine Blood Negative (Negative); Urine Ketones Negative (Negative); Urine Protein Negative (Neg-Trace)
[2024-03-09 14:01] LABS: Alanine Aminotransferase 20 U/L (0-40); Albumin Level 4.3 g/dL (3.5-5.0); Alkaline Phosphatase 92 U/L (39-117); Anion Gap 12 (12-20); Aspartate Amino Transferase 22 U/L (5-37); Bilirubin Total 0.8 mg/dL (0.0-1.0); Blood Urea Nitrogen 14 mg/dL (9-16); Calcium 9.7 mg/dL (8.4-10.2); Carbon Dioxide 28 mmol/L (22-29); Chloride 104 mmol/L (96-108); Cholesterol 153 mg/dL (<200); Estimated Glomerular Filt Rate > 60; Glucose Fasting 89 mg/dL (60-99); HDL Cholesterol 55 mg/dL (>40); LDL Cholesterol Calculated 91 mg/dL (<100); Potassium 4.6 mmol/L (3.3-5.1); Sodium 139 mmol/L (135-145); TSH reflex Free T4 0.93 uIU/mL (0.32-4.0); Total Protein 7.2 g/dL (6.5-8.0); Triglycerides 35 mg/dL (<150)
== END 2024-03-09 11:13 | disposition home or self-care (01) ==
LOC: HO.HMGCLDS 11:12
PROVIDERS: PCP Nurse Practitioner Family; Visit Provider Nurse Practitioner Family
DX: I10 Essential (primary) hypertension (principal); F41.9 Anxiety disorder, unspecified; F32.A Depression, unspecified
CPT/HCPCS: 36415; 80053; 80061; 81003; 84443; 85025

== ENCOUNTER 2024-03-12 10:44 | Outpatient (AMB) | payer MEDICARE, MEDICAID, SELFPAY ==
--- NOTE | 2024-03-12 10:49 | A.OFFVIS_ITS ---
Intake Visit Reasons: OV-RT shoulder MRI review Intake Note: Shiv is a 63 year old -- hand dominant male who presents today for an MRI review of his right shoulder. He was last seen with Jennifer on 11/30/23 where bilateral shoulders were injected . MR/MR shoulder RT wo con IMPRESSION: 1. Complete, full-thickness tear of the supraspinatus tendon with extension through the majority of the infraspinatus tendon. The torn tendon fibers are retracted proximal to the glenohumeral articulation. Acute supraspinatus and infraspinatus muscle strains. Moderate subscapularis tendinosis with articular surface and intrasubstance partial tearing. 2. Complete tear and retraction of the proximal long head biceps tendon. 3. Nmyciwqs-so-syjntx acromioclavicular osteoarthritis. 4. Nondisplaced undersurface tearing of the anterior, anteroinferior, inferior, posteroinferior, and posterior labrum. 5. Mild glenohumeral osteoarthritis. Moderate joint effusion with synovitis. Allergies No Known Allergies Allergy (Verified 02/20/24 10:12) HPI HPI OV-RT shoulder MRI review: Details: This is a 63-year-old gentleman who comes in today with right shoulder pain and dysfunction. He was in [place] recently when he was unable to abduct his arm and this got in concern. An MRI was obtained and he comes in today for follow up. He states his arm is getting better and he can lift it above his head now but it does bother him if he does so excessively. He denies any prior history of injury. FORMERLY [facility], [facility]1983 Medical History Depression Anxiety Prostate troubles Hypertension Surgical History History of left hip replacement Family History Other No pertinent family history Social History Housing: House Alcohol intake: never Patient Tobacco Use Status: Never used Tobacco e-Cigarette/Vaping Use: Never Used service: No Current occupational status: unemployed Cognitive needs: No Hearing needs: No Vision needs: No Physical Exam Extrem Other: Weakness with empty can testing but he can abduct his arm to 90 degrees and forward flex to 130 with external rotation 35. Results Reviewed Results Reviewed: I personally reviewed the MR images. Complete, full-thickness tear of the supraspinatus tendon with extension through the majority of the infraspinatus tendon. The torn tendon fibers are retracted proximal to the glenohumeral articulation. Acute supraspinatus and infraspinatus muscle strains. Moderate subscapularis tendinosis with articular surface and intrasubstance partial tearing. 2. Complete tear and retraction of the proximal long head biceps tendon. 3. Zqqyjzge-tl-jodkhe acromioclavicular osteoarthritis. 4. Nondisplaced undersurface tearing of the anterior, anteroinferior, inferior, posteroinferior, and posterior labrum. 5. Mild glenohumeral osteoarthritis. Moderate joint effusion with synovitis. Assessment & Plan Assessment & Plan (1) Rotator cuff arthropathy of right shoulder: Code(s): M12.811 - Other specific arthropathies, not elsewhere classified, right shoulder Category: Medical Plan: This is a 61-year-old gentleman with right rotator cuff tear arthropathy. He does not have proximal migration of the humeral head on plain films but his rotator cuff is retracted and atrophied. I discussed this with him. I explained the role of surgery and arthroplasty and the potential limitations of both as well as the benefits and alternatives. At this time he will continue with gentle range of motion activities. I recommend he avoid over rotator cuff strengthening exercises and work on scapular stabilization. He can return to see me at any time but no intervention warranted at this time. Coding Level of Care Code Est Pt Level 4 (94915) Diagnoses Rotator cuff arthropathy of right shoulder M12.811
== END 2024-03-12 11:56 | disposition home or self-care (01) ==
PROVIDERS: PCP Nurse Practitioner Family; Visit Provider Orthopaedic Surgery
DX: M12.811 Other specific arthropathies, not elsewhere classified, right shoulder (principal)
CPT/HCPCS: 99213

== ENCOUNTER → 2024-03-12 10:44 | Outpatient (BNVA) | payer MEDICARE, MEDICAID, SELFPAY | PROVIDERS: PCP Nurse Practitioner Family; Visit Provider Orthopaedic Surgery | DX: M12.811 Other specific arthropathies, not elsewhere classified, right shoulder (principal) | CPT/HCPCS: 99212 ==

== ENCOUNTER 2024-06-06 07:23 | Outpatient (AMB) | payer MEDICARE, MEDICAID, SELFPAY ==
--- NOTE | 2024-06-06 07:20 | A.OFFVIS_ITS ---
Intake Visit Reasons: 4 months f/up-anxiety Allergies No Known Allergies Allergy (Verified 06/06/24 07:30) Medication List - Last [facility] 10 mg PO DAILY 90 days blood pressure kit-extra large use daily, for HTN buspirone 30 mg PO BID dextroamphetamine-amphetamine 20 mg (Adderall) 20 mg PO BID 30 days finasteride 5 mg PO DAILY losartan 50 mg PO DAILY tadalafil (Cialis) 5 mg PO DAILY HPI HPI 4 months f/up-anxiety: Details: History of Present Illness The patient is a 64-year-old male presenting with hypertension management. He reports being out of his losartan medication for a period, which is intended to manage his high blood pressure. Despite previously taking losartan, he noted that his blood pressure readings remained elevated. Systolic blood pressure measurements have been consistently recorded between 140 and 150 mmHg, while diastolic readings are predominantly in the 70s. This issue has persisted despite adherence to the amlodipine therapy. The patient denies experiencing any associated symptoms such as chest pain, shortness of breath, headaches, blurred vision, nausea, or vomiting. He has not reported any exacerbating factors, and there are no noted changes in lifestyle or health status that could account for the recent elevated readings. NOTE: pt is seeing a Urologist Review of Systems - Cardiovascular: Denies chest pain or shortness of breath. - Neurological: Denies headaches or blurred vision. - Gastrointestinal: Denies nausea or vomiting. PE -A+Ox3 -pleasant -in no acute distress Plan - Increase losartan dosage from 25 mg to 50 mg and send the prescription to the patient's pharmacy. - Monitor blood pressure over a couple of weeks to assess the effectiveness of the increased losartan dose. - Instruct the patient to contact me through a portal message or phone call if systolic blood pressure remains in the 140s to 150s. Patient was informed and verbally consented to the use of an ambient scribe for clinic note documentation during this visit. Discussion Notes During our telehealth visit, I discussed with the patient the plan to increase his losartan dosage from 25 mg to 50 mg. This adjustment is to address his persistently elevated systolic blood pressure readings, despite adherence to current medication regimens. I explained that it might take a couple of weeks to notice significant improvement in blood pressure levels. I advised the patient to monitor his blood pressure regularly and report if readings do not decrease. We agreed that he should reach out via the patient portal or by phone if there are concerns or if his systolic measurements remain elevated after adjusting the medication. It was also confirmed that the patient has had no acute distress symptoms or adverse effects from his current medications, and he was reminded of the importance of compliance with the updated treatment regimen. Patient Instructions - Take the newly prescribed 50 mg dose of losartan as directed. - Monitor blood pressure regularly at home. - Contact me if systolic blood pressure readings remain between 140 and 150 mmHg in two weeks. - Immediately report any symptoms such as chest pain, shortness of breath, or vision changes. - Continue current lifestyle habits unless physicians suggest otherwise. PFSH Medical History Depression Anxiety Prostate troubles Hypertension Surgical History History of left hip replacement Family History Other No pertinent family history Social History Housing: House Alcohol intake: never Patient Tobacco Use Status: Never used Tobacco e-Cigarette/Vaping Use: Never Used service: No Current occupational status: unemployed Cognitive needs: No Hearing needs: No Vision needs: No Telehealth Telehealth Telehealth Platform: [facility] Location of provider rendering services: practice address Location of patient: address on file Patient Identification confirmed using: Name, : Yes Telehealth method: video Patient verbally consented to treatment: Yes Patient verbally consented to billing insurance company: Yes Patient informed of any privacy concerns related to visit: Yes Assessment & Plan Assessment & Plan (1) Hypertension: Code(s): I10 - Essential (primary) hypertension Category: Medical Qualifiers: Hypertension type: primary hypertension Qualified Code(s): I10 - Essential (primary) hypertension Plan . Medications: Changed From losartan 25 mg PO DAILY 90 tabs 1RF To losartan 50 mg PO DAILY 90 tabs 1RF Refilled losartan 25 mg PO DAILY 90 tabs 1RF amlodipine 10 mg PO DAILY 90 days 90 tabs 1RF Coding Level of Care Code Tele Est Pt Level 3 (91161) Diagnoses Primary hypertension I10 Hypertension type: primary hypertension
--- OUTSIDE RECORDS SUMMARY | 2024-06-06 07:26 | XMS_ITS | Continuity of Care Document ---
Author Organization [facility] Address [address] [place] [address] Phone Care Team Providers Care Social Media Content Specialist Name Role Phone Sy Montana MD Unavailable [...] Diagnoses Date Provider Providers Copied on Encounter [facility], [address], [place], [place], [id number], [place] tel:[phone] [address] No Information Rubén Dan. [address], [place], [place], [id number] , [place]. tel:[phone] Office/outpat ient visit,new, mod [facility], [address], [place], [place], [id number], tel:[phone] 400 [facility] [address] left hip pain (chief complaint) PAIN IN LIMBLumbar painPelvic obliquityLeg length inequality 4 Rubén Dan. [address], [address], [place], [place], [address] , [place]. tel:[phone] Referring Provider: Sy Montana MD K, [address], [place], [address] . tel:[phone] [facility], [address], [place], [place], [id number], tel:[phone] [facility] 400 No Information 4 Rubén Dan. [address], [address], [place], [place], [address] , [place]. tel:[phone] Family History Family Member Type Diagnosis Age At Onset No Information Payers Payer name Insurance type Covered libertarian ID Authoriza tion(s) No Information Social History [...] continue workup and treatment options with a copy center specialist that he has seen down in [place]. Related to Lumbar pain Assessments Type Assessment Date No Information Patient Care Teams Name Effective Dates (start - stop) Status Members No Information
== END 2024-06-06 16:45 | disposition home or self-care (01) ==
PROVIDERS: PCP Nurse Practitioner Family; Visit Provider Nurse Practitioner Family
DX: I10 Essential (primary) hypertension (principal)

== ENCOUNTER → 2024-06-06 07:23 | Outpatient (BNVA) | payer MEDICARE, MEDICAID, SELFPAY | PROVIDERS: PCP Nurse Practitioner Family; Visit Provider Nurse Practitioner Family ==

== ENCOUNTER 2024-06-08 11:46 | Outpatient (REF) | payer MEDICARE, MEDICAID, SELFPAY ==
[2024-06-08 13:14] LABS: MANUAL DIFF FLAG NO
[2024-06-08 13:18] LABS: Basophils Absolute Auto 0.1 X10*3/uL (0.0-0.2); Basophils Percent Auto 2.3 % (0-2); Eosinophils Percent Auto 1.2 % (0-4); Hemoglobin 13.7 g/dl (14.0-18.0); Imm Gran Abs Auto 0.01 X10*3/uL (0.00-0.03); Imm Gran Pct Auto 0.3 % (0.0-0.4); Immature Retic Fraction 7.5 % (2.3-13.4); Lymphocytes Absolute Auto 1.4 X10*3/uL (1.2-4.9); Mean Corpuscular HGB Conc 31.9 g/dl (31.0-36.0); Mean Corpuscular Hemoglobin 27.3 pg (27.0-33.0); Mean Corpuscular Volume 85.8 fL (80.0-98.0); Mean Platelet Volume 10.7 fL (9.4-12.4); Monocytes Absolute Auto 0.3 X10*3/uL (0.1-1.2); Monocytes Percent Auto 9.6 % (2-11); Neutrophils Absolute Auto 1.6 x10*3/uL (2.0-8.3); Neutrophils Percent Auto 46.6 % (45-73); Platelet Count 337 X10*3/uL (160-400); Red Blood Count 5.01 X10*6/uL (4.60-5.80); Red Cell Distribution Width 12.9 % (11.0-16.0); Retic HGB Equivalent 31.2 pg (30.0-35.0); Reticulocyte Percent 1.3 % (0.5-1.8); Reticulocytes Absolute 0.064 X10*6/uL (0.026-0.095); White Blood Count 3.5 X10*3/uL (4.8-10.8)
[2024-06-08 14:09] LABS: Alanine Aminotransferase 18 U/L (0-40); Albumin Level 4.2 g/dL (3.5-5.0); Alkaline Phosphatase 93 U/L (39-117); Anion Gap 9 (12-20); Aspartate Amino Transferase 25 U/L (5-37); Bilirubin Total 0.7 mg/dL (0.0-1.0); Blood Urea Nitrogen 17 mg/dL (9-16); Calcium 9.5 mg/dL (8.4-10.2); Carbon Dioxide 27 mmol/L (22-29); Chloride 109 mmol/L (96-108); Estimated Glomerular Filt Rate > 60; Glucose Random 80 mg/dL (60-115); Iron 73 mcg/dL (45-160); Percent Iron Saturation 34 % (15-50); Potassium 4.3 mmol/L (3.3-5.1); Prostate Specific Antigen 13.08 ng/mL (<0.05-4.0); Sodium 141 mmol/L (135-145); Total Iron Binding Capacity 214 mcg/dL (228-428); Total Protein 7.7 g/dL (6.5-8.0); Unsaturated Iron Binding 141 ug/dL
[2024-06-08 14:14] LABS: Ferritin 125 ng/mL (20-250)
[2024-06-08 14:22] LABS: Folate 8.6 ng/mL (> or = 4.0); Vitamin B12 879 pg/mL (200-900)
--- OUTSIDE RECORDS SUMMARY | 2024-06-08 14:31 | XMS_ITS | Continuity of Care Document ---
Author Organization [facility] Address [address] [place] [address] Phone Care Team Providers Care Linoleum Tile Floor Layer Name Role Phone Sy Montana MD Unavailable [...] Diagnoses Date Provider Providers Copied on Encounter [facility], [address], [place], [place], [id number], [place] tel:[phone] [phone] No Information Rubén Dan. [address] , [address], [place], [place], [id number] , [place]. tel:[phone] Office/outpat ient visit,new, mod [facility], [address], [place], [place], [id number], tel:[phone] 400 [facility] [address] left hip pain (chief complaint) PAIN IN LIMBLumbar painPelvic obliquityLeg length inequality 4 Rubén Dan. [address], [address], [place], [place], [address] , [place]. tel:[phone] Referring Provider: Sy Montana MD K, [address], [place], [address] . tel:[phone] [facility], [address], [place], [place], [address], tel:[phone] [facility] 400 No Information 4 Rubén Dan. [address], [address], [place], [place], [address] , [place]. tel:[phone] Family History Family Member Type Diagnosis Age [...] continue workup and treatment options with a pest control specialist that he has seen down in [place]. Related to Lumbar pain Assessments Type Assessment Date No Information Patient Care Teams Name Effective Dates (start - stop) Status Members No Information
[2024-06-12 14:28] LABS: Hematocrit 42.4 % (38.5-50.0); Hemoglobin 13.7 g/dL (13.2-17.1); MCV 86.5 fL (80.0-100.0); RDW 12.5 % (11.0-15.0)
== END 2024-06-08 11:47 | disposition home or self-care (01) ==
LOC: HO.HMGCLDS 11:46
PROVIDERS: PCP Nurse Practitioner Family; Visit Provider Physician Assistant
DX: R97.20 Elevated prostate specific antigen [PSA] (principal); D64.9 Anemia, unspecified; D72.819 Decreased white blood cell count, unspecified; Z12.5 Encounter for screening for malignant neoplasm of prostate
CPT/HCPCS: 36415; 80053; 82607; 82728; 82746; 83020; 83540; 84153; 85014; 85018; 85025; 85041; 85045

== ENCOUNTER 2024-07-11 14:58 | Outpatient (AMB) | payer MEDICARE, MEDICAID, SELFPAY ==
[2024-07-11 15:00] VITALS: BP 142/86; PULSE 70; TEMP 36.6; O2SAT 98; BMI 24.5
--- NOTE | 2024-07-11 15:00 | A.OFFPC_ITS ---
Vital Signs 07/11/24 15:00 Height 5 ft 9 in Weight 166 lb BMI 24.5 BP 142/86 H Blood Pressure Location Rt brachial Position Sitting Pulse 70 Pulse Source Pulse Oximeter Temp 97.9 F Temp Source Oral Pulse Oximetry (%) 98 Intake Visit Reasons: Annual PE Intake Note: pt is here for annual exam Protective Service Specialist Required: No Accompanied by: Self / Same As Patient Allergies No Known Allergies Allergy (Verified 07/11/24 15:00) Medication List - Last Reconciled 07/11/24 by OPAL Davidson- amlodipine 10 mg PO DAILY 90 days blood pressure kit-extra large use daily, for HTN buspirone 30 mg PO BID dextroamphetamine-amphetamine 20 mg (Adderall) 20 mg PO BID 30 days finasteride 5 mg PO DAILY losartan 50 mg PO BID 90 days tadalafil (Cialis) 5 mg PO DAILY Tobacco use date assessed: 07/11/24 Dental Screening Dental Screen Date: 07/11/24 Did you have a dental visit in the last 12 months?: Yes Did you have a dental problem in the last 6 months where you did not have access to dental care?: No Was dental information given to patient?: Patient has dentist HPI Annual PE HPI Details History of Present Illness The patient is a 64-year-old male presenting with dizziness during an annual physical examination. The patient has a history of dizziness, especially when getting up or turning his head side to side. These symptoms have been ongoing for an unspecified duration but are reported to be improving slowly on their own. The patient had a recent viral illness which may have contributed to the dizziness symptoms. The patient also has a past medical history of essential hypertension. He self-monitors blood pressure at home, reporting systolic readings predominantly in the 140s and diastolic readings in the 90s. Treatment has included antihypertensive medication, specifically losartan at 50 mg daily. During a previous gastroenterological evaluation in [place], the patient underwent a colonoscopy; however, results are unavailable from that procedure. The patient also has a urological history of elevated PSA at 13.08 ng/mL, for which he is currently under the care of a urologist. Health Maintenance - Colonoscopy screening recommended due to the lack of available prior results. - Referral to gastroenterology for furth er evaluation. - Review and adjustment of antihypertens erasto therapy to improve blood pressure control. - Ongoing monitoring of PSA levels with urologist. Social History Review of Systems - Gastrointestinal: Denies any blood in stool, constipation, diarrhea, abdominal pain, nausea, or vomiting. - Cardiovascular: Denies chest pain or s hortness of breath. - Neurological: Reports dizziness when s tanding or turning head to the side. - Psychiatric: Denies any suicidal ideat ion or homicidal ideation. Physical Exam General: Cooperative, healthy appearing, comfortable, no acute distress and well developed Orientation: Patient oriented x3 Limitations: No limitations Head: Normal to inspection Ears: Hearing grossly normal bilaterally Nose: Normal external nose present Face and sinus: Normal facial exam Eyes: Appearance normal, both eyes and all related structures Neck: Normal visual inspection and Yes full ROM Respiratory: Normal respiratory effort and able to speak in complete sentences. Clear to auscultation bilaterally Cardiovascular: Regular rate and rhythm. Normal S1 and S2 GI: Normal to inspection. Soft to palpation and nontender Skin: No rashes or lesions noted Neuro: Patient oriented x3, reports some dizziness, especially with getting up, turning his head side to side. Positive Cri-Opzt-Mdrz + maneuver to the right side Extremities: Normal to inspection. left large heeled boot (shorter LLE from previous surgery) Results - Labs: Slight leukopenia noted. PSA aleyda vated at 13.08 ng/mL. Plan - Essential Hypertension: Increase losar stephen dosage from 50 mg once daily to 50 mg twice daily and continue blood pressure monitoring. - Dizziness: Monitor symptoms, as the concha lopes reports gradual improvement and does not wish to pursue physical therapy at this time. - Leukopenia: Referral to a hr operations advisor for further evaluation of leukopenia. - Elevated PSA: Continue under urologist care for elevated PSA. Discussion Notes During the consultation, we discussed the increase in the losartan dose to better manage the patient?s hypertension given the persistently elevated home blood pressure readings. The patient was advised to continue monitoring his blood pressure regularly at home. We reviewed the symptoms of dizziness and the patient elected to monitor these for progression or resolution before considering physical therapy, given the current improvement trend. Additionally, given the presence of leukopenia, I recommended a hematology evaluation to explore potential causes. The patient?s elevated PSA is being managed by his urologist, and we continue to monitor this closely. Patient Instructions - Continue daily monitoring of blood pre ssure and report any significant changes. - Increase losartan dosage to 50 mg twic e daily. - Monitor dizziness for any changes and note if symptoms worsen. - Follow up with hematology as advised f or leukopenia evaluation. - Maintain regular urology follow-ups fo r PSA monitoring. [facility] Medical History Depression Anxiety Prostate troubles Hypertension Surgical History History of left hip replacement Family History Other No pertinent family history Social History Housing: House Alcohol intake: never Patient Tobacco Use Status: Never used Tobacco e-Cigarette/Vaping Use: Never Used service: No Current occupational status: unemployed Cognitive needs: No Hearing needs: No Vision needs: No Questionnaire PHQ-9 Over the last 2 weeks, how often have you been bothered by any of the following problems? 13591 - PHQ-9 Billing: Patient declined-do not bill Source: Developed by Drs. Vickey Barlow, Bernie Stoelo, Loco Seymour and colleagues, with an educational zen from [employer] Thrive Questionnaire Date Thrive assessed: 07/11/24 I am a: Patient What is your living situation today?: I have a steady place to live Within the past 12 months, did the food you bought not last and you didn't have the money to get more?: Sometimes True Within the past 12 months, did you worry whether your food would run out before you got money to buy more?: Sometimes True Do you have trouble paying for medicines?: Yes Do you have trouble getting transportation to medical appointments?: No Do you have trouble paying your heating and electricity bill?: No Do you have trouble taking care of your child, family member or friend?: No Do you have trouble with day-to-day activities such as bathing, preparing meals, shopping, managing finances, etc.?: No Are you currently unemployed and looking for a job?: No Are you interested in more education?: Yes Please select the resources that you would like help with: None Currently or been in a relationship where the following occur: No concerns reported THRIVE Score: 2 AUDIT C Alcohol Use Questionnaire (AUDIT-C) 1. How often do you have a drink containing alcohol?: Monthly or less 2. How many drinks containing alcohol do you have on a typical day when you are drinking?: 1 or 2 3. How often do you have six or more drinks on one occasion?: Never Total Score: 1 Score Reviewed/Action Taken: Yes KAREN-7 AMB Questionnaire KAREN-7 Date KAREN - 7 assessed: 07/11/24 (patient declined) Source: Developed by Drs. Vickey Barlow, Bernie Sotelo, Loco Seymour and colleagues, with an educational zen from [employer]. Physical exam (Primary Care) Vital Signs: Last Vital Signs Temp 97.9 F 07/11/24 15:00 Pulse 70 07/11/24 15:00 BP 142/86 H 07/11/24 15:00 Pulse Ox 98 07/11/24 15:00 BMI result Body Mass Index 24.5 Tobacco/Smoking Status: Tobacco use Status Tobacco use date assessed 07/11/24 07/11/24 15:09 Patient Tobacco Use Status Never used Tobacco 07/11/24 15:09 e-Cigarette/Vaping Use Never Used 07/11/24 15:09 Thrive Assessment: Date of Thrive Assessment Date Thrive assessed 07/11/24 07/11/24 15:09 Currently or been in a relationship where the following occur: No concerns reported Coding Level of Care Code Est Pt Prev Care 40-64y(01759) Diagnoses Primary hypertension I10 Hypertension type: primary hypertension Screening for colon cancer Z12.11 Assessment & Plan Assessment & Plan (1) Hypertension: Code(s): I10 - Essential (primary) hypertension Category: Medical Qualifiers: Hypertension type: primary hypertension Qualified Code(s): I10 - Essential (primary) hypertension (2) Screening for colon cancer: Code(s): Z12.11 - Encounter for screening for malignant neoplasm of colon Category: Medical Plan . Orders: Orders Comprehensive Met. Panel Today I10 - Essential (primary) hypertension Referrals Gastroenterology Referral Z12.11 - Encounter for screening for malignant neoplasm of colon Medications: Changed From losartan 50 mg PO DAILY 90 tabs 1RF To losartan 50 mg PO BID 90 tabs 1RF From losartan 50 mg PO BID 90 tabs 1RF To losartan 50 mg PO BID 90 days 180 tabs 1RF
--- OUTSIDE RECORDS SUMMARY | 2024-07-11 15:01 | XMS_ITS | Continuity of Care Document ---
Author Organization [facility] Address [address] [place] [address] Phone Care Team Providers Care Transportation Agent Name Role Phone Sy Montana MD Unavailable [...] Diagnoses Date Provider Providers Copied on Encounter [facility], [address], [place], [place], [id number], [place] tel:[phone] [address] No Information Rubén Dan. [address], [place], [place], [id number] , [place]. tel:[phone] Office/outpat ient visit,new, mod [facility], [address], [place], [place], [id number], tel:[phone] [address] [facility] [address] left hip pain (chief complaint) PAIN IN LIMBLumbar painPelvic obliquityLeg length inequality 4 Rubén Dan. [address], [address], [place], [place], [id number] , [place]. tel:[phone] Referring Provider: Sy Montana MD K, [address], [place], [address] . tel:[phone] [facility], [address], [place], [place], [id number], tel:[phone] [facility] 400 No Information 4 Rubén Dan. [address], [address], [place], [place], [id number] , [place]. tel:[phone] Family History Family Member Type Diagnosis Age [...] continue workup and treatment options with a resume specialist that he has seen down in [place]. Related to Lumbar pain Assessments Type Assessment Date No Information Patient Care Teams Name Effective Dates (start - stop) Status Members No Information
--- OUTSIDE RECORDS SUMMARY | 2024-07-11 15:01 | XMS_ITS | Data Portability ---
Author Organization [facility] minicecydulce maria Address [address] [place] [address] Care Team Providers Care Seedling Puller Name Role Phone SEBASTIEN AMADOR Referring Provider [phone] MARQUEZ CARMONA Primary Care Provider [phone] Assessment Encounter Date Assessment Date Assessment LastModified by Organization Details LastModified Time 07/31/2019 07/31/2019 Pt had severe difficulty maintaining pelvic alignment during step up exercises, cues to correct. Pt remains very stiff in flexion/abduction with difficulty performing true motion without compensations. Pt also had difficulty with reverse clams due to tightness in hip external rotators. Pt exhibits min improvements in hip mobility post therapy. Continue with POC. He will follow up at medical office regarding appt with Dr. Conway. suad Not available 07/31/2019 14:11:14 08/03/2019 08/03/2019 PAtient tolerate d session well. I have not seen any improvement on his ROM from two weeks ago when I saw him. Continue with POC. He will follow up at medical office regarding appt with Dr. Conway. margaret Not available 08/03/2019 11:47:37 08/07/2019 08/07/2019 Patient tolerate d session well. He may have improved his hamstrings flexibility a bit over the last 2 weeks. Continue with POC. margaret Not available 08/07/2019 14:35:11 08/08/2019 08/08/2019 Patient tolerate d session well. He may have improved his hamstrings flexibility a bit over the last 2 weeks and hip flexion. Good participation and tolerance to tx session. Continue with POC. [email or web address] Not available 08/09/2019 08:54:30 11/22/2019 11/22/2019 Xray L Spine 4 View AP/Lateral/Flexio n/Extension- [facility] [place]- 11/22/2019 Findings: DDD throughout the lower back Severe scoliosis noted FA throughout History of left JKAUB Right hip looks good Reviewed imaging with patient and went over all questions Given the patients history, physical exam findings, location of pain advanced imaging is warranted to further evaluate the patients symptoms Order placed for an MRI of the Lumbar spine to rule out disc herniation or central canal or neuroforaminal stenosis. Consider Epidural steroid injection vs facet joint injection. Follow up after imaging [email or web address] Not available 11/22/2019 13:45:37 Plan of Treatment Reminders Order Date Submit Date Provider Last Modified By Organization Details Last Modified Time Details Appointments None recorded. Lab None recorded. Referral None recorded. Procedures None recorded. Surgeries None recorded. Imaging XR, lumbar spine 2019 020 [email or web address] Not available 0 11:24:25 MRI, lumbar spine, w/o contrast - PLEASE SPECIFICALL Y DENOTE MODIC TYPE CHANGES IF PRESENT ON THE MRI 2019 020 [place] [address] [facility], [address], [address], [place], [address], 0 11:31:53 Medication Orders None recorded. Patient TargetsNo targets recorded. Patient InstructionsNo instructions recorded. Reason for Referral None Reported. Procedures Surgical History Date Name Laterality Status Provider Name and Address Organization Details Recorded Time 08/08/19 20 Therapeutic Exercise completed Adelita Sandy Patrick, PT [address] [facility],[address], [place], [address], [facility] 08/09/2019 08:53:05 08/08/19 20 Manual Therapy completed Adelita Patrick, PT [address] [facility],[address], [place], [address], [facility] 08/09/2019 08:53:33 08/07/19 20 Therapeutic Exercise completed Zak Larson, PT [address] [facility],[address], [place], [address], [facility] 08/07/2019 14:33:51 08/07/19 20 Manual Therapy completed Zak Larson, PT [address] [facility],[address], [place], [address], [facility] 08/07/2019 14:33:40 08/03/19 20 Therapeutic Exercise completed Zak Mike Larson, PT [address] [facility], [place], [address], [facility] 08/03/2019 11:48:51 08/03/19 20 Manual Therapy completed Zak Mike Larson, PT [address] [facility],[address], [place], [address], [facility] 08/03/2019 11:48:34 07/31/19 20 Therapeutic Exercise completed Dyan De La Fuente, HEEL SANDER RUBBER [address] [facility], [place], [address], [facility] 07/31/2019 14:09:47 07/31/19 20 Manual Therapy completed Dyan De La Fuente, HEEL SANDER RUBBER [address] [facility], [place], [address], [facility] 07/31/2019 14:09:41 07/30/19 20 Therapeutic Exercise completed Dyan De La Fuente, HEEL SANDER RUBBER [address] [facility], [place], [address], [facility] 07/30/2019 16:30:58 07/30/19 20 Manual Therapy completed Dyan De La Fuente, HEEL SANDER RUBBER [address] [facility], [place], [address], [facility] 07/30/2019 16:30:49 07/25/19 20 Therapeutic Exercise completed Adelita Patrick, PT [address] [facility],[address], [place], [address], [facility] 07/25/2019 16:56:28 07/25/19 20 Manual Therapy completed Adelita Patrick, PT [address] [facility],[address], [place], [address], [facility] 07/25/2019 16:56:45 07/23/19 20 Therapeutic Exercise completed Lissette Tee, RPT [address] [facility],[address], [place], [address], [facility] 07/23/2019 14:02:55 07/23/19 20 Manual Therapy completed Lissette Tee, RPT [address] [facility], [place], [address], [facility] 07/23/2019 14:03:09 07/17/19 20 Therapeutic Exercise completed Zak Larson, PT [address] [facility],[address], [place], [address], [facility] 07/17/2019 15:31:32 07/17/19 20 Manual Therapy completed Zak Larson, PT [address] [facility],[address], [place], [address], [facility] 07/17/2019 15:31:32 07/16/19 20 Therapeutic Exercise completed Adelita Patrick, PT [address] [facility],[address], [place], [address], [facility] 07/17/2019 17:41:19 07/16/19 20 Manual Therapy completed Adelita Patrick, PT [address] [facility],[address], [place], [address], [facility] 07/17/2019 17:41:55 07/12/19 20 Therapeutic Exercise completed Adelita Patrick, PT [address] [facility],[address], [place], [address], [facility] 07/12/2019 16:02:00 07/12/19 20 Manual Therapy completed Adelita Patrick, PT [address] [facility],[address], [place], [address], [facility] 07/12/2019 16:02:00 07/10/19 20 Therapeutic Exercise completed Dyan De La Fuente, HEEL SANDER RUBBER [address] [facility], [place], [address], [facility] 07/10/2019 16:12:06 07/10/19 20 Manual Therapy completed Dyan De La Fuente, HEEL SANDER RUBBER [address] [facility], [place], [address], [facility] 07/10/2019 16:11:52 07/09/19 20 Therapeutic Exercise completed Lissette Tee, RPT [address] [facility], [place], [address], [facility] 07/09/2019 13:58:28 07/09/19 20 Manual Therapy completed Lissette Tee, RPT [address] [facility], [place], [address], [facility] 07/09/2019 13:59:01 07/05/19 20 Therapeutic Exercise completed Trell Bender, PT [address] [facility],[address], [place], [address], [facility] 07/05/2019 11:50:54 07/05/19 20 Manual Therapy completed Trell Bender, PT [address] [facility], [place], [address], [facility] 07/05/2019 11:50:31 07/04/19 20 Therapeutic Exercise completed Dyan De La Fuente, HEEL SANDER RUBBER [address] [facility],[address], [place], [address], [facility] 07/04/2019 12:09:59 07/04/19 20 Manual Therapy completed Dyan De La Fuente, HEEL SANDER RUBBER [address] [facility], [place], [address], [facility] 07/04/2019 12:10:17 07/03/19 20 Therapeutic Exercise completed Zak [place], PT [address] [facility],[address], [place], [address], [facility] 07/03/2019 14:39:27 07/03/19 20 Manual Therapy completed Zak Larson, PT [address] [facility],[address], [place], [address], [facility] 07/03/2019 14:38:57 06/29/19 20 Therapeutic Exercise completed Justine Patrick Quique, PT [address] [facility],[address], [place], [address], [facility] 06/29/2019 14:07:03 06/29/19 20 Manual Therapy completed Justine Lei, PT [address] [facility],[address], [place], [address], [facility] 06/29/2019 14:07:44 06/27/19 20 Therapeutic Exercise completed Justine Lei, PT [address] [facility],[address], [place], [address], [facility] 06/27/2019 12:53:15 06/25/19 20 Therapeutic Exercise completed Justine Lei, PT [address] [facility],[address], [place], [address], [facility] 06/25/2019 12:58:32 06/25/19 20 Manual Therapy completed Justine Lei, PT [address] [facility],[address], [place], [address], [facility] 06/25/2019 12:58:56 06/22/19 20 Therapeutic Exercise completed Justine Lei, PT [address] [facility],[address], [place], [address], [facility] 06/22/2019 14:39:47 06/22/19 20 Gait Training completed Justine Lei, PT [address] [facility],[address], [place], [address], [facility] 06/22/2019 14:39:54 06/11/19 20 Therapeutic Exercise completed Trell Bender, PT [address] [facility],[address], [place], [address], [facility] 06/11/2019 17:01:11 06/11/19 20 Manual Therapy completed Trell Bender, PT [address] [facility],[address], [place], [address], [facility] 06/11/2019 17:00:53 06/08/19 20 Therapeutic Exercise completed Sekou Chand, HEEL SANDER RUBBER [address] [facility],[address], [place], [address], [facility] 06/08/2019 17:07:32 06/06/19 20 Therapeutic Exercise completed Justine Lei, PT [address] [facility],[address], [place], [address], [facility] 06/06/2019 15:39:36 06/06/19 20 Gait Training completed Justine Lei, PT [address] [facility],[address], [place], [address], [facility] 06/06/2019 15:39:59 06/04/19 20 PT Re-Evaluation completed Justine Lei, PT [address] [facility],[address], [place], [address], [facility] 06/04/2019 15:28:05 06/04/19 20 Therapeutic Exercise completed Justine Lei, PT [address] [facility],[address], [place], [address], [facility] 06/04/2019 12:54:59 06/01/19 20 Therapeutic Exercise completed Trell Bender, PT [address] [facility],[address], [place], [address], [facility] 06/01/2019 11:07:36 06/01/19 20 Gait Training completed Trell Bender, PT [address] [facility],[address], [place], [address], [facility] 06/01/2019 11:06:40 06/01/19 20 Manual Therapy completed Trell Bender, PT [address] [facility],[address], [place], [address], [facility] 06/01/2019 11:07:44 05/25/19 20 Therapeutic Exercise completed Trell Bender, PT [address] [facility],[address], [place], [address], [facility] 05/25/2019 11:55:50 05/25/19 20 Gait Training completed Trell Bender, PT [address] [facility],[address], [place], [address], [facility] 05/25/2019 11:55:21 05/24/19 20 Therapeutic Exercise completed Justine Lei, PT [address] [facility],[address], [place], [address], [facility] 05/24/2019 15:25:09 05/24/19 20 Gait Training completed Justine Lei, PT [address] [facility],[address], [place], [address], [facility] 05/24/2019 15:24:46 05/21/20 19 Therapeutic Exercise completed Melissa Fisher, DPT [address] [facility],[address], [place], [address], [facility] 05/21/2019 11:29:42 05/21/20 19 Gait Training completed Melissa Fisher, DPT [address] [facility],[address], [place], [address], [facility] 05/21/2019 11:29:28 05/21/20 19 Manual Therapy completed Melissa Fisher, DPT [address] [facility], [place], [address], [facility] 05/21/2019 11:29:12 05/19/20 19 Therapeutic Exercise completed Dyan De La Fuente, HEEL SANDER RUBBER [address] [facility],[address], [place], [address], [facility] 05/19/2019 09:07:25 05/11/20 19 Therapeutic Exercise completed Qiana Valiente, PT [address] [facility],[address], [place], [address], [facility] 05/14/2019 15:30:59 05/11/20 19 Gait Training completed Qiana Valiente, PT [address] [facility],[address], [place], [address], [facility] 05/14/2019 15:31:06 05/09/20 19 Therapeutic Exercise completed Jhoan Alex Valiente SR, PT [address] [facility],[address], [place], [address], [facility] 05/09/2019 17:58:13 05/09/20 19 Gait Training completed Jhoan Valiente SR, PT [address] [facility],[address], [place], [address], [facility] 05/09/2019 17:58:57 05/08/20 19 Therapeutic Exercise completed Catarino Saha, PT [address] [facility],[address], [place], [address], [facility] 05/08/2019 17:47:00 05/03/20 19 PT Evaluation completed Justine Lei, PT [address] [facility],[address], [place], [address], [facility] 05/03/2019 16:43:22 05/03/20 19 Therapeutic Exercise completed Justine Lei, PT [address] [facility],[address], [place], [address], [facility] 05/03/2019 16:43:34 05/23/19 12 Hip Replacement completed Geni Vides [facility] 11/26/2019 08:57:47 Imaging Results None recorded. Procedure Notes None recorded. Medical Equipment None Reported. Allergies No known drug allergies Medications Name Sig Start Date Stop Date Status Note LastModified by Organization Details LastModified Time Prescription - Clarificatio n active Not Available Not Available Not Available anastrozole 1 mg tablet active Not Available Not Available Not Available tizanidine 4 mg tablet active Not Available Not Available No t Available famotidine 20 mg tablet 07/13 completed Not Available Not Available Not Available oxycodone-ac etaminophen 10 mg-325 mg tablet active Not Available Not Available Not Available amlodipine 10 mg tablet active Not Available Not Available Not Available mirtazapine 30 mg tablet active Not Available Not Available Not Available dextroamphet amine-amphet amine 20 mg tablet active Not Available Not Available Not Available indomethacin 50 mg capsule TAKE 1 CAPSULE BY MOUTH THREE TIMES DAILY WITH MEALS FOR 6 WEEKS active Not Available Not Available No t Available triamterene 37.5 mg-hydrochlo rothiazide 25 mg tablet active Not Available Not Available Not Available mirtazapine 45 mg tablet active Not Available Not Available Not Available mupirocin 2 % topical ointment 07/13 completed Not Available Not Available Not Available zaleplon 10 mg capsule 07/13 completed Not Available Not Available Not Available diazepam 10 mg tablet active Not Available Not Available No t Available finasteride 5 mg tablet active Not Available Not Available Not Available tadalafil 5 mg tablet active Not Available Not Available No t Available duloxetine 60 mg capsule,anisha yed release active Not Available Not Available Not Available Vyvanse 60 mg capsule active Not Available Not Available N ot Available Vitals Date Recorded Body height Body mass index (BMI) Body weight Provider Name and Address Organization Details Last Updated DateTime 11/26/2019 177.8 cm 0.4 kg/m2 1360.78 g Geni [facility] 11/26/2019 08:57:02 Social History Question Answer Notes LastModified by Organizat ion Details LastModified Time Tobacco Smoking Status Never Smoker Lisbeth Madrid [facility] 03/02/2019 14:43:41 How Much Tobacco Do You Chew? None Information not available 03/02/2019 Do You Or Have You Ever Used E-cigarettes Or Vape? Never Used Electronic Cigarettes Information not available 03/02/2019 What Was The Date Of Your Most Recent Tobacco Screening? 03/27/2019 Information not available 03/27/2019 Do You Or Have You Ever Used Smokeless Tobacco? Never Used Smokeless Tobacco Information not available 03/02/2019 How Much Tobacco Do You Smoke? No Information not available 03/02/2019 How Many Years Have You Smoked Tobacco? 0 Information not available 03/02/2019 Sex: Unknown Functional Status None recorded. Mental Status None recorded. Family History Relationship Description Onset Age of this Age Resolved Age Notes LastModified by Organization Details LastModified Time Mother Diabetes mellitus [email or web address] Not available 2018 11:09:42 Father Family history of malignant neoplasm [email or web address] Not available 2018 11:09:50 Medical History Condition Response Seizure Disorder N High Blood Pressure (Hypertension) N AFib (Atrial Fibrillation) N Eye Problems (Glaucoma, Retinopathy, Mac ular Degeneration) N Back/Neck Pain Y Depression N Sickle Cell Anemia N No changes to past medical history since last recorded N CHF (Congestive Heart Failure) N Headaches/Migraines N Memory Loss (Dementia) N Mental Illness (Bi-Polar Disorder, Schiz ophrenia) N Hearing Loss N Arthritis Osteoarthritis N Heart Attack (Myocardial Infarction) N Heart Disease/Valve Disease N Cancer N Heart Rhythm Problem (Palpitations) N Liver Disease/Hepatitis N Implantable Pacemaker/Defibrillator/AICD N Stroke/TIA N Prior Blood Transfusion N Arthritis Rheumatoid N Bleeding Problems N Fibromyalgia N HIV N Diabetes (Insulin Dependent) N Parkinson's Disease N Edema (Swelling) N Anesthetic Complication N Substance Abuse (Alcohol, Drug) N Gastrointestinal Disease (IBS, Gastritis , Ulcer, Acid Reflux) N Blood Clot (Deep Vein Thrombosis) N Anemia N Celiac Disease N Multiple Sclerosis N Neuropathy (Numbness, Pain, Tingling) N Pulmonary Embolism (Blood Clot in the Bobbi ng) N Diabetes (Non-Insulin Dependent) N Bladder Problems N Rheumatic Fever N Claustrophobic N Osteopenia/Osteoporosis N No known past medical history recorded b y patient N Tuberculosis N AIDS N Asthma N Spine Disease (Herniated Disc, Scoliosis , Stenosis) N Developmental Disorder N COPD (Chronic Obstructive Pulmonary Dise ase) N Other Disease(s): N MRSA (Antimicrobial Resistance) N Chronic Pain Disorder N CAD (Coronary Artery Disease) N Past Encounters Encounter ID Performer Location Encounter Start Date Encounter Closed Date Diagnosis/Indication Diagnosis SNOMED-CT Code Diagnosis ICD10 Code Diagnosis Note [id number] MD ALVAREZ [facility] [address] [place] [address] 03/02/2019 10:40:18 03/05/2019 06:54:23 Acquired unequal limb length 1863453182 05557 M21.70 X-rays AP EL standing and left leg long lateral reveals superior and inferior heterotopi c ossificati ons at the left hip the a THR. The left hip is in a fixed adduction position. There is evidence of a premature growth plate injury at the proximal left tibia. There is 11 degrees of recurvatum at left knee. [id number] MD ALVAREZ [facility] [address] [place] [address] 03/27/2019 10:12:03 03/28/2019 06:31:23 Heterotopic ossification of joint 789716059 M25.80 AP, Frog pelvis documents a left hip arthroplas ty implant and significan t Hetero-top ic ossificati on (H.O.), as well as the right superior illiac crest. There is no apparent loosening, the implant appears well seated. Incidental review of imported CT scan shows both an anterior and posterior bony bridge of H.O. surroundin g the proximal implant. [id number] Aguilar Amador MD [facility] [address] [place] [address] 05/03/2019 08:09:13 05/03/2019 10:26:18 Abnormal gait 00619605 R26.9 Hip stiff 110016879 M25. 652 Muscle atrophy 59456643 M62.136 [id number] Catarino Saha, PT [facility] [address] [place] [address] 05/08/2019 10:21:59 05/08/2019 10:27:32 Abnormal gait 90901137 R26.9 Hip stiff 792676126 M25. 652 Muscle atrophy 84179149 M62.042 [id number] Jhoan Valiente SR, PT [facility] [address] [place] [address] 05/09/2019 14:05:39 05/09/2019 15:27:27 Abnormal gait 10524894 R26.9 Hip stiff 802779565 M25. 652 Muscle atrophy 35007191 M62.055 [id number] MD ALVAREZ [facility] [address] [place] [address] 05/11/2019 11:58:54 05/14/2019 08:34:38 [id number] Qiana Valiente, PT [facility] [address],[place] [address] 05/11/2019 12:44:30 05/11/2019 13:15:17 Abnormal gait 15518018 R26.9 Hip stiff 500409900 M25. 652 Muscle atrophy 34352201 M62.441 [id number] Nandini Valenciaprem Reinoso, MSPT, CSCS [facility] [address],[place] [address] 05/19/2019 08:20:27 05/19/2019 08:28:35 Abnormal gait 77525303 R26.9 Hip stiff 874324043 M25. 652 Muscle atrophy 94574876 M62.786 [id number] Melissakaila Fisher, DPT [facility] [address],[place] [address] 05/21/2019 09:05:53 05/21/2019 09:47:12 Abnormal gait 83696137 R26.9 Hip stiff 574384124 M25. 652 Muscle atrophy 55222208 M62.726 [id number] Justine Lei, PT [facility] [address],[place] [address] 05/24/2019 11:10:57 05/24/2019 11:43:49 Abnormal gait 76245370 R26.9 Hip stiff 484452714 M25. 652 Muscle atrophy 52946196 M62.250 [id number] Trell Bender, PT [facility] [address],[place] [address] 05/25/2019 10:35:07 05/25/2019 11:33:39 Abnormal gait 92073536 R26.9 Hip stiff 127319064 M25. 652 Muscle atrophy 11698493 M62.014 [id number] Trell Bendre, PT [facility] [address],[place] [address] 06/01/2019 10:19:35 06/01/2019 10:57:05 Abnormal gait 90499268 R26.9 Hip stiff 607917858 M25. 652 Muscle atrophy 33314474 M62.473 [id number] Justine Lei, PT [facility] [address],[place] [address] 06/04/2019 12:30:40 06/04/2019 13:50:32 Abnormal gait 81550563 R26.9 Hip stiff 952566687 M25. 652 Muscle atrophy 46896130 M62.684 [id number] Justine Lei, PT [facility] [address],[place] [address] 06/06/2019 12:59:00 06/06/2019 14:48:11 Abnormal gait 92472973 R26.9 Hip stiff 422441468 M25. 652 Muscle atrophy 31963121 M62.963 [id number] Sekou Patrick [place] , HEEL S[employer]ER RUBBER [facility] [address] [place] [address] 06/08/2019 15:55:28 06/08/2019 16:52:37 Abnormal gait 80694317 R26.9 Hip stiff 741655057 M25. 652 Muscle atrophy 51606388 M62.743 [id number] Trell Bender, PT [facility] [address] [place] [address] 06/11/2019 15:29:27 06/11/2019 15:30:23 Abnormal gait 36252112 R26.9 Hip stiff 410104965 M25. 652 Muscle atrophy 98126814 M62.362 [id number] Justine Nguyen Tessasam, PT [facility] [address],[place] [address] 06/22/2019 12:03:25 06/22/2019 12:48:18 Abnormal gait 00921680 R26.9 Hip stiff 179184050 M25. 652 Muscle atrophy 99725655 M62.443 [id number] Justine Nguyen Tessasam, PT [facility] [address],[place] [address] 06/25/2019 09:18:14 06/25/2019 09:45:29 Abnormal gait 81690183 R26.9 Hip stiff 415947163 M25. 652 Muscle atrophy 09017556 M62.093 [id number] Justine Nguyen Quique, PT [facility] [address],[place] [address] 06/27/2019 09:23:26 06/27/2019 10:01:48 Abnormal gait 43021761 R26.9 Hip stiff 599093847 M25. 652 Muscle atrophy 19166820 M62.859 [id number] Justine Lei, PT [facility] [address],[place] [address] 06/29/2019 13:11:11 06/29/2019 14:04:00 Abnormal gait [id number] R26.9 Hip stiff [id number] M25. 652 Muscle atrophy 89579026 M62.945 [id number] Zak Larson, PT [facility] [address] [place] [place] [address] 07/03/2019 12:32:43 07/03/2019 13:16:31 Abnormal gait 70620171 R26.9 Hip stiff 856517106 M25. 652 Muscle atrophy 92156958 M62.034 [id number] Nandini Reinoso MSPT, CSCS [facility] [address] [place] [place] [address] 07/04/2019 11:57:59 07/04/2019 12:58:04 Abnormal gait 40464241 R26.9 Hip stiff [id number] M25. 652 Muscle atrophy 89796000 M62.980 [id number] Trell Bender, PT [facility] [address],[place] [address] 07/05/2019 09:36:12 07/05/2019 10:22:14 Abnormal gait 16274751 R26.9 Hip stiff [id number] M25. 652 Muscle atrophy 15113224 M62.219 [id number] Lissette Tee, RPT [facility] [address],[place] [address] 07/09/2019 13:03:27 07/09/2019 13:39:40 Abnormal gait 18333339 R26.9 Hip stiff 138660292 M25. 652 Muscle atrophy 65382809 M62.843 [id number] BJ Knutson, CSCS [facility] [address],[place] [address] 07/10/2019 14:53:52 07/10/2019 15:06:34 Abnormal gait 54075108 R26.9 Hip stiff 046300991 M25. 652 Muscle atrophy 82484226 M62.178 [id number] Adelita Sandy Patrick, PT [facility] [address],[place] [address] 07/12/2019 15:03:52 07/12/2019 15:05:13 Abnormal gait 86808751 R26.9 Hip stiff 733436180 M25. 652 Muscle atrophy 80320549 M62.618 [id number] Aguilar Amador MD [facility] [address] [place] [address] 07/13/2019 08:46:20 07/16/2019 07:37:45 Pain of left hip joint [id number] 07975 M25.552 Pain in lumbar spine 267 330647 M54.5 [id number] Adelita Sandy Patrick, PT [facility] [address],[place] [address] 07/16/2019 14:24:21 07/16/2019 14:43:55 Abnormal gait 77736129 R26.9 Hip stiff 779132623 M25. 652 Muscle atrophy 95401764 M62.678 [id number] Zak Larson, PT [facility] [address],[place] [address] 07/17/2019 14:25:38 07/17/2019 15:05:20 Abnormal gait 60073713 R26.9 Hip stiff 992618805 M25. 652 Muscle atrophy 09627476 M62.910 [id number] Lissette Tee, RPT [facility] [address],[place] [address] 07/23/2019 13:01:34 07/23/2019 13:47:20 Abnormal gait 59102951 R26.9 Hip stiff 171070438 M25. 652 Muscle atrophy 49388480 M62.263 [id number] Adleita Sandyyoli Patrick, PT [facility] [address],[place] [address] 07/25/2019 12:03:16 07/25/2019 12:58:01 Abnormal gait 76034763 R26.9 Hip stiff 338388602 M25. 652 Muscle atrophy 28493415 M62.777 [id number] Nandini Reinoso, MSPT, CSCS [facility] [address],[place] [address] 07/30/2019 13:00:18 07/30/2019 13:42:12 Abnormal gait 19044449 R26.9 Hip stiff 082149966 M25. 652 Muscle atrophy 69165044 M62.659 [id number] Nandini Reinoso, MSPT, CSCS [facility] [address],[place] [address] 07/31/2019 13:03:24 07/31/2019 13:45:01 Abnormal gait 84583695 R26.9 Hip stiff 917975521 M25. 652 Muscle atrophy 33026551 M62.187 [id number] Zakkaila Larson, PT [facility] [address],[place] [address] 08/03/2019 08:43:59 08/03/2019 09:46:29 Abnormal gait 86904268 R26.9 Hip stiff 234375338 M25. 652 Muscle atrophy 05031470 M62.086 [id number] Zakkaila Larson, PT [facility] [address],[place] [address] 08/07/2019 12:26:14 08/07/2019 13:32:17 Abnormal gait 07479266 R26.9 Hip stiff 542809508 M25. 652 Muscle atrophy 19767063 M62.776 [id number] Adelita Sandy Darnell, PT [facility] [address] [place] [address] 08/08/2019 12:09:18 08/08/2019 12:43:04 Abnormal gait 70728617 R26.9 Hip stiff 613400658 M25. 652 Muscle atrophy 82252884 M62.406 [id number] Gunnar Conway MD [facility] [address] [address] 11/22/2019 12:46:19 11/26/2019 09:38:19 Low back pain 407913595 M54.5 Lumbar radiculopathy 128 489274 M54.16 Degenerati on of lumbar intervertebral disc 58768565 M51.36 Health Concerns Section Related Observation LastModified by Organization Detai ls LastModified Time None Recorded Concern Status LastModified by Organization Details LastModified Time None Recorded Advance Directives Directive None Recorded Payers Encounter Date Sequence Insurance Name Policy Number Policy Delgadillo Covered Member ID Delgadillo Member ID Guarantor Name 07/31/2019 1 [place] A Brightly [id number] 4 [place] Brightly 08/03/2019 1 [place] A Brightly [id number] 4 [place] Brightly 08/07/2019 1 [place] A Brightly [id number] 4 [place] Brightly 08/08/2019 1 [place] A Brightly [id number] 4 [place] Brightly 11/22/2019 1 [place] A Brightly [id number] 4 [place] Brightly Notes Date Note Type Note Provider Name and Address Organization Details Recorded Time 07/31/2019 text/html Pt says he felt energized and much looser/better after last PT session. Dyan De La Fuente, [employer] [address] [facility],[address], [place], [address], [facility] 07/31/2019 14:11:46 08/03/2019 text/html No new complaints. Zak Larson, PT [address] [facility],[address], [place], [address], [facility] 08/06/2019 07:17:45 08/07/2019 text/html No new complaints. Patient stated that he feels he is improving despite the lack of progress we see in the clinic. Zakkaila Larson, PT [address] [facility],[address], [place], [address], [facility] 08/07/2019 14:35:55 08/08/2019 text/html Pt arrived 9 min late. Adelita Awadillo, PT [address] [facility],[address], [place], [address], [facility] 08/09/2019 08:56:15 11/22/2019 text/html {{59# }} year old {{female male*}} with {{Lower back* Neck Mid back Neck and Lower back Shoulder Hip Knee Ankle Wrist }} pain presents for initial evaluation Patient was referred by {{Self# &&&&&&&&} } Pain has been present {{for many years # &&&&&&&&}} Pain is worse with {{[id number] sitting and standing, # &&&&&&&&}} Pain is better with {{laying down # &&&&&&&&}} Pain is currently {{1 2 3 4 5 6 7* 8 9 10}}/10 but can get as bad as {{12# 1 2 3 4 5 6 7 8 9 10}}/10 Pain radiates {{down side of right leg above knee # &&&&&&&&}} Describes the pain as {{burning, constant, deep, achy, pressure # &&&&&&&&}} Medications the patient has tried {{tylenol, oxycodone, # &&&&&&&&}} Imaging in the past {{MRI hip# &&&&&&&&}} Therapies in the past {{physical therapy currently, # &&&&&&&&}} Interventions in the past {{steroid injection last one 4 years ago relief for 6 months # &&&&&&&&}} Gunnar Conway MD [address] [facility],[address], [place], [address], [facility] 11/26/2019 09:33:13
== END 2024-07-11 15:56 | disposition home or self-care (01) ==
PROVIDERS: PCP Nurse Practitioner Family; Visit Provider Nurse Practitioner Family
DX: Z00.00 Encounter for general adult medical examination without abnormal findings (principal); I10 Essential (primary) hypertension; Z12.11 Encounter for screening for malignant neoplasm of colon

== ENCOUNTER → 2024-07-11 14:58 | Outpatient (BNVA) | payer MEDICARE, MEDICAID, SELFPAY | PROVIDERS: PCP Nurse Practitioner Family; Visit Provider Nurse Practitioner Family | DX: Z00.00 Encounter for general adult medical examination without abnormal findings (principal); I10 Essential (primary) hypertension | CPT/HCPCS: 99396 ==

== ENCOUNTER → 2024-08-08 09:13 | Outpatient (BNV) | payer MEDICARE, MEDICAID, SELFPAY | PROVIDERS: PCP Nurse Practitioner Family; Referring Provider Nurse Practitioner Family; Visit Provider Internal Medicine | DX: D72.819 Decreased white blood cell count, unspecified (principal) | CPT/HCPCS: 99204; G2211 ==

== ENCOUNTER 2024-12-04 11:44 | Outpatient (AMB) | payer MEDICARE, MEDICAID, SELFPAY ==
--- OUTSIDE RECORDS SUMMARY | 2014-04-15 12:45 | XMS_ITS | Continuity of Care Document ---
Author Organization [facility] Address [address] [place] [address] Phone Care Team Providers Care Sales Account Director Name Role Phone Sy Montana MD Unavailable [...] [facility], [address], [place], [place], [address], [place] tel:[phone] [phone] No Information Rubén Dan. [address] , [address], [place], [place], [address] , [place]. tel:[phone] Office/outpat ient visit,new, mod [facility], [address], [place], [place], [address], tel:[phone] 400 [facility] [address] left hip pain (chief complaint) PAIN IN LIMBLumbar painPelvic obliquityLeg length inequality 4 Rubén Dan. [address], [address], [place], [place], [address] , [place]. tel:[phone] Referring Provider: Sy Montana MD K, [address], [place], [address] . tel:[phone] [facility], [address], [place], [place], [address], tel:[phone] [facility] 400 No Information 4 Rubén Dan. [address], [place], [place], [address] , [place]. tel:[phone] Family History Family Member Type Diagnosis Age At Onset No Information Payers Payer name Insurance type Covered green party ID Authoriza tion(s) No Information Social [...] continue workup and treatment options with a family services specialist that he has seen down in [place]. Related to Lumbar pain Assessments Type Assessment Date No Information Patient Care Teams Name Effective Dates (start - stop) Status Members No Information
--- NOTE | 2024-12-04 11:48 | A.OFFVIS_ITS ---
Vital Signs 12/04/24 11:49 Height 5 ft 10 in Weight 161 lb BMI 23.1 BP 132/74 Blood Pressure Location Lt brachial Position Sitting Respiration 17 Pulse 73 Pulse Source Pulse Oximeter Pulse Oximetry (%) 98 Oxygen Delivery Method Room Air Intake Visit Reasons: colo screening Allergies tamsulosin (From Flomax) Allergy (Severe, Verified 12/04/24 12:19) Facial Swelling HPI HPI colo screening: Details: 64-year-old male here for preprocedural meeting to discuss a screening colonoscopy. He is referred by Abner Ramos. PMX Hypertension ADHD Depression with anxiety Chronic low back pain Rotator cuff arthropathy Osteoarthritis of the knees * SURGICAL HISTORY Left hip replacement * ALLERGIES Flomax * BTC Trip LABS: Laboratory Tests 06/08/24 10/08/24 11:52 11:47 WBC 4.6 L Hgb 13.8 L Plt Count 320 Estimated GFR > 60 Total Bilirubin 0.7 AST 25 ALT 18 Alkaline Phosphatase 93 TODAY'S VISIT He moved from [place] and he thinks he had a prior scope,but is quite confused between this and his prostate procedures. With this, he is unsure if he ever had polyps. He denies any cardiac or respiratory problems. There are no prior problems with aensthesia or sedation. NO ID problems. There is no known FHX crc or polyps. [facility] Medical History (Updated 12/04/24 @ 11:58 by MAGEN Dallas) Laboratory tests ordered as part of a complete physical exam (CPE) Physical exam, annual Screening for colon cancer Depression Anxiety Prostate troubles Hypertension Surgical History History of left hip replacement Family History Other No pertinent family history Social History Household Members: Family, Children and None Housing: House Alcohol intake: never Patient Tobacco Use Status: Never used Tobacco e-Cigarette/Vaping Use: Never Used service: No Current occupational status: unemployed Gender identity: Male Cognitive needs: No Hearing needs: No Vision needs: No Review of Systems Const Denies fatigue, Denies fever(s), Denies night sweats, Denies poor appetite and Denies weight loss ENT Reports Normal hearing present, Denies dental pain, Denies dysphagia, Denies hearing loss, Denies mouth pain, Denies odynophagia, Denies throat swelling, Denies tongue swelling and Reports other (Dentition adequate) Card Reports no additional complaints Resp Reports no additional complaints GI Details: Denies abdominal pain, Reports belching, Denies constipation, Denies dysphagia, Denies early satiety, Denies heartburn, Denies diarrhea and Denies odynophagia Skin/Breast Denies pruritus, Denies lesions, Denies rash and Denies jaundice Neuro Reports Normal hearing present and Denies Abnormal speech present Endo Denies fatigue Aller/Immun Denies throat swelling and Denies tongue swelling Physical Exam Vital Signs: Last Vital Signs Pulse 73 12/04/24 11:49 Resp 17 12/04/24 11:49 BP 132/74 12/04/24 11:49 Pulse Ox 98 12/04/24 11:49 Oxygen Delivery Method Room Air 12/04/24 11:49 BMI result Body Mass Index 23.1 Const General: cooperative, no acute distress, well developed and well groomed Nutritional Appearance: average body habitus and well nourished Orientation/consciousness: oriented to person, oriented to place and oriented to time Limitations: No language barrier HEENT Head: Yes normocephalic and Yes atraumatic Eyes General: appearance normal, both eyes and all related structures Pupils: Equal, round and reactive pupils present Neck Neck: Yes normal visual inspection and Yes no lymphadenopathy Thyroid: Thyroid normal Resp Effort & Inspection: normal respiratory effort and able to speak in complete sentences Auscultation: clear to auscultation bilaterally Cardio Rate: regular rate Rhythm: regular rhythm Heart sounds: Normal, physiologic split S2 sound present Peripheral pulses: radial pulses present and posterior tibial pulses present GI Inspection: No distended and No Abdominal panniculus present Palpation (GI): Soft to palpation, nontender, no guarding, not rigid and No hepatosplenomegaly present Percussion: Yes normal to percussion Auscultation: normal bowel sounds Rectal Exam - Male: Yes deferred Skin General skin exam: no rashes or lesions noted, turgor normal, skin not dry, no jaundice, No spider nevi and no striae Rashes: no rashes Nails: normal Neuro General: oriented to person, oriented to place and oriented to time Cranial nerves: Yes Equal, round and reactive pupils present and Yes Normal hearing present Speech: No Abnormal speech present Extrem General: Yes normal to inspection, No clubbing, No cyanosis and No edema Psych Appearance: grossly normal and well kempt Mental Status: mental status grossly normal Speech and movement: Normal speech and movement present Affect: normal affect Attitude: cooperative Thought process: Normal thought process present and not confabulating Thought content: Normal thought content present Insight: Fair insight present (Psych) Judgement: Fair judgement present (Psych) Assessment & Plan Assessment & Plan (1) Pre-op examination: Code(s): Z01.818 - Encounter for other preprocedural examination Category: Medical Plan He moved from [place] and he thinks he had a prior scope,but is quite confused between this and his prostate procedures. With this, he is unsure if he ever had polyps. He denies any cardiac or respiratory problems. There are no prior problems with aensthesia or sedation. NO ID problems. There is no known FHX crc or polyps. Orders: Orders Colonoscopy - GI Use Only Today Z01.818 - Encounter for other preprocedural examination Medications: New sodium,potassium,mag sulfates 17.5-3.13-1.6 gram (Suprep Bowel Prep Kit) 480 mL orally; FOR COLONOSCOPY PREP 354 mL 0RF Coding Level of Care Code New Pt Level 3 (20038) Diagnoses Pre-op examination Z01.818
[2024-12-04 11:49] VITALS: BP 132/74; PULSE 73; RESP 17; O2SAT 98; BMI 23.1
--- OUTSIDE RECORDS SUMMARY | 2024-12-04 13:06 | XMS_ITS | Data Portability ---
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 Continue with POC. [email or web address] Not available 08/07/2019 14:35:11 08/08/2019 08/08/2019 Patient tolerate d session well. He may have improved his hamstrings flexibility a bit over the last 2 weeks and hip flexion. Good participation and tolerance to tx session. Continue with POC. [email or web address] Not available 08/09/2019 08:54:30 11/22/2019 11/22/2019 Xray L Spine 4 View AP/Lateral/Flexio n/Extension- [facility] [place]- 11/22/2019 Findings: DDD throughout the lower back Severe scoliosis noted FA throughout History of left JAKUB Right hip looks good Reviewed imaging with [...] IF PRESENT ON THE MRI 2019 020 [place] [address] [facility], [address], [address], [place], [address], 0 11:31:53 Medication Orders None recorded. Patient TargetsNo targets recorded. Patient InstructionsNo instructions recorded. Reason for Referral None Reported. Procedures Surgical History Date Name Laterality Status Provider Name and Address Organization Details Recorded Time 08/08/19 20 Therapeutic Exercise completed Adelita Patrick, PT [address] [facility] [address], [place], [address], [facility] 08/09/2019 08:53:05 08/08/19 20 Manual Therapy completed Adelita Patrick, PT [address] [facility],[address], [place], [address], [facility] 08/09/2019 08:53:33 08/07/19 20 Therapeutic Exercise completed Zak Larson, PT [address] [facility],[address], [place], [address], [facility] 08/07/2019 14:33:51 08/07/19 20 Manual Therapy completed Zak Larson, PT [address] [facility],[address], [place], [address], [facility] 08/07/2019 14:33:40 08/03/19 20 Therapeutic Exercise completed Zak Larson, PT [address] [facility],[address], [place], [address], [facility] 08/03/2019 11:48:51 08/03/19 20 Manual Therapy completed Zak Larson, PT [address] [facility],[address], [place], [address], [facility] 08/03/2019 11:48:34 07/31/19 20 Therapeutic Exercise completed Dyan De La Fuente, DISPATCH CLERK [address] [facility],[address], [place], [address], [facility] 07/31/2019 14:09:47 07/31/19 20 Manual Therapy completed Dyan De La Fuente, DISPATCH CLERK [address] [facility],[address], [place], [address], [facility] 07/31/2019 14:09:41 07/30/19 20 Therapeutic Exercise completed Dyan De La Fuente, DISPATCH CLERK [address] [facility],[address], [place], [address], [facility] 07/30/2019 16:30:58 07/30/19 20 Manual Therapy completed Dyan De La Fuente, DISPATCH CLERK [address] [facility],[address], [place], [address], [facility] 07/30/2019 16:30:49 07/25/19 20 Therapeutic Exercise completed Adelita Patrick, PT [address] [facility],[address], [place], [address], [facility] 07/25/2019 16:56:28 07/25/19 20 Manual Therapy completed Adelita Patrick, PT [address] [facility],[address], [place], [address], [facility] 07/25/2019 16:56:45 07/23/19 20 Therapeutic Exercise completed Lissette Tee, RPT [address] [facility],[address], [place], [address], [facility] 07/23/2019 14:02:55 07/23/19 20 Manual Therapy completed Lissette Tee, RPT [address] [facility],[address], [place], [address], [facility] 07/23/2019 14:03:09 07/17/19 20 Therapeutic Exercise completed Zak Larson, PT [address] [facility],[address], [place], [address], [facility] 07/17/2019 15:31:32 07/17/19 20 Manual Therapy completed Zak Larson, PT [address] [facility],[address], [place], [address], [facility] 07/17/2019 15:31:32 07/16/19 20 Therapeutic Exercise completed Adelita Patrick, PT [address] [facility],[address], [place], [address], [facility] 07/17/2019 17:41:19 07/16/19 20 Manual Therapy completed Adelita Patrick, PT [address] [facility],[address], [place], [address], [facility] 07/17/2019 17:41:55 07/12/19 20 Therapeutic Exercise completed Adelita Patrick, PT [address] [facility],[address], [place], [address], [facility] 07/12/2019 16:02:00 07/12/19 20 Manual Therapy completed Adelita Patrick, PT [address] [facility],[address], [place], [address], [facility] 07/12/2019 16:02:00 07/10/19 20 Therapeutic Exercise completed Dyan De La Fuente, DISPATCH CLERK [address] [facility],[address], [place], [address], [facility] 07/10/2019 16:12:06 07/10/19 20 Manual Therapy completed Dyan De La Fuente, DISPATCH CLERK [address] [facility],[address], [place], [address], [facility] 07/10/2019 16:11:52 07/09/19 20 Therapeutic Exercise completed Lissette Tee, RPT [address] [facility],[address], [place], [address], [facility] 07/09/2019 13:58:28 07/09/19 20 Manual Therapy completed Lissette Tee, RPT [address] [facility],[address], [place], [address], [facility] 07/09/2019 13:59:01 07/05/19 20 Therapeutic Exercise completed Trell Bender, PT [address] [facility],[address], [place], [address], [facility] 07/05/2019 11:50:54 07/05/19 20 Manual Therapy completed Trell Bender, PT [address] [facility],[address], [place], [address], [facility] 07/05/2019 11:50:31 07/04/19 20 Therapeutic Exercise completed Dyan De La Fuente, DISPATCH CLERK [address] [facility],[address], [place], [address], [facility] 07/04/2019 12:09:59 07/04/19 20 Manual Therapy completed Dyan De La Fuente, DISPATCH CLERK [address] [facility],[address], [place], [address], [facility] 07/04/2019 12:10:17 07/03/19 20 Therapeutic Exercise completed Zak Larson, PT [address] [facility],[address], [place], [address], [facility] 07/03/2019 14:39:27 07/03/19 20 Manual Therapy completed Zak Larson, PT [address] [facility],[address], [place], [address], [facility] 07/03/2019 14:38:57 06/29/19 20 Therapeutic Exercise completed Justine Patrick Quique, PT [address] [facility],[address], [place], [address], [facility] 06/29/2019 14:07:03 06/29/19 20 Manual Therapy completed Justine Patrick Quique, PT [address] [facility],[address], [place], [address], [facility] 06/29/2019 14:07:44 06/27/19 20 Therapeutic Exercise completed Justine Lei, PT [address] [facility],[address], [place], [address], [facility] 06/27/2019 12:53:15 06/25/19 20 Therapeutic Exercise completed Justine Lei, PT [address] [facility],[address], [place], [address], [facility] 06/25/2019 12:58:32 06/25/19 20 Manual Therapy completed Justine Lei, PT [address] [facility],[address], [place], [address], [facility] 06/25/2019 12:58:56 06/22/19 20 Therapeutic Exercise completed Justine Lei, PT [address] [facility],[address], [place], [address], [facility] 06/22/2019 14:39:47 06/22/19 20 Gait Training completed Justine Lei, PT [address] [facility],[address], [place], [address], [facility] 06/22/2019 14:39:54 06/11/19 20 Therapeutic Exercise completed Trell Bender, PT [address] [facility],[address], [place], [address], [facility] 06/11/2019 17:01:11 06/11/19 20 Manual Therapy completed Trell Bender, PT [address] [facility],[address], [place], [address], [facility] 06/11/2019 17:00:53 06/08/19 20 Therapeutic Exercise completed Sekou Chand, DISPATCH CLERK [address] [facility],[address], [place], [address], [facility] 06/08/2019 17:07:32 06/06/19 20 Therapeutic Exercise completed Justine Lei, PT [address] [facility],[address], [place], [address], [facility] 06/06/2019 15:39:36 06/06/19 20 Gait Training completed Justine Lei, PT [address] [facility],[address], [place], [address], [facility] 06/06/2019 15:39:59 06/04/19 20 PT Re-Evaluation completed Justine Lei, PT [address] [facility],[address], [place], [address], [facility] 06/04/2019 15:28:05 06/04/19 20 Therapeutic Exercise completed Justine Lei, PT [address] [facility],[address], [place], [address], [facility] 06/04/2019 12:54:59 06/01/19 20 Therapeutic Exercise completed Trell Bender, PT [address] [facility],[address], [place], [address], [facility] 06/01/2019 11:07:36 06/01/19 20 Gait Training completed Trell Bender, PT [address] [facility],[address], [place], [address], [facility] 06/01/2019 11:06:40 06/01/19 20 Manual Therapy completed Trell Bender, PT [address] [facility],[address], [place], [address], [facility] 06/01/2019 11:07:44 05/25/19 20 Therapeutic Exercise completed Trell Bender, PT [address] [facility],[address], [place], [address], [facility] 05/25/2019 11:55:50 05/25/19 20 Gait Training completed Trell Bender, PT [address] [facility],[address], [place], [address], [facility] 05/25/2019 11:55:21 05/24/19 20 Therapeutic Exercise completed Justine Lei, PT [address] [facility],[address], [place], [address], [facility] 05/24/2019 15:25:09 05/24/19 20 Gait Training completed Justine Lei, PT [address] [facility],[address], [place], [address], [facility] 05/24/2019 15:24:46 05/21/20 19 Therapeutic Exercise completed Melissa Fisher, DPT [address] [facility],[address], [place], [address], [facility] 05/21/2019 11:29:42 05/21/20 19 Gait Training completed Melissa Fisher, DPT [address] [facility],[address], [place], [address], [facility] 05/21/2019 11:29:28 05/21/20 19 Manual Therapy completed Melissa Fisher, DPT [address] [facility],[address], [place], [address], [facility] 05/21/2019 11:29:12 05/19/20 19 Therapeutic Exercise completed Dyan De La Fuente, DISPATCH CLERK [address] [facility],[address], [place], [address], [facility] 05/19/2019 09:07:25 05/11/20 19 Therapeutic Exercise completed Qiana Valiente, PT [address] [facility],[address], [place], [address], [facility] 05/14/2019 15:30:59 05/11/20 19 Gait Training completed Qiana Valiente, PT [address] [facility],[address], [place], [address], [facility] 05/14/2019 15:31:06 05/09/20 19 Therapeutic Exercise completed Jhoan Valiente SR, PT [address] [facility],[address], [place], [address], [facility] 05/09/2019 17:58:13 05/09/20 19 Gait Training completed Jhoan Valiente SR, PT [address] [facility],[address], [place], [address], [facility] 05/09/2019 17:58:57 05/08/20 19 Therapeutic Exercise completed Catarino Saha, PT [address] [facility],[address], [place], [address], [facility] 05/08/2019 17:47:00 05/03/20 19 PT Evaluation completed Justine Lei, PT [address] [facility],[address], [place], [address], [facility] 05/03/2019 16:43:22 05/03/20 19 Therapeutic Exercise completed Justine Lei, PT [address] [facility],[address], [place], [address], [facility] 05/03/2019 16:43:34 05/23/19 12 Hip Replacement completed [facility]i [facility] 11/26/2019 08:57:47 Imaging Results None recorded. [...] and Address Organization Details Last Updated DateTime 11/22/2019 177.8 cm 0.4 kg/m2 1360.78 g Geni [facility] 11/26/2019 08:57:02 Social History Question Answer Notes LastModified by Organizat ion Details LastModified Time Tobacco Smoking Status Never Smoker [facility] 03/02/2019 14:43:41 How Much Tobacco Do You Chew? None Information not available 03/02/2019 What Was The Date Of Your Most Recent Tobacco Screening? 03/27/2019 Information not available 03/27/2019 How Much Tobacco Do You Smoke? No Information not available 03/02/2019 How Many Years Have You Smoked Tobacco? 0 Information not available 03/02/2019 Sex: Unknown Functional Status Question Answer Note LastModified by Organizat ion Details LastModified Time Do you or have you ever used smokeless tobacco? Never used smokeless tobacco Information not available 03/02/2019 Do you or have you ever used e-cigarettes or vape? Never used electronic cigarettes becky Information not available 03/02/2019 Mental Status None recorded. Family History Relationship Description Onset Age of this Age Resolved Age Notes LastModified by Organization Details LastModified Time Mother Diabetes mellitus [email or web address] Not available 2018 11:09:42 Father Family history of malignant neoplasm [email or web address] Not available 2018 11:09:50 Medical History Condition [...] SNOMED-CT Code Diagnosis ICD10 Code Diagnosis Note [id number] MD ALVAREZ [facility] [address] [place] [address] 03/02/2019 10:40:18 03/05/2019 06:54:23 Acquired unequal limb length 2862506118 31931 M21.70 X-rays AP EL standing and left leg long lateral reveals superior and inferior heterotopi c ossificati ons at the left hip the a THR. The left hip is in a fixed adduction position. There is evidence of a premature growth plate injury at the proximal left tibia. There is 11 degrees of recurvatum at left knee. [id number] MD ALVAREZ [facility] [address],[place] [address] 03/27/2019 10:12:03 03/28/2019 06:31:23 Heterotopic ossification of joint 277514142 M25.80 AP, Frog pelvis documents a left hip arthroplas ty implant and significan t Hetero-top ic ossificati on (H.O.), as well as the right superior illiac crest. There is no apparent loosening, the implant appears well seated. Incidental review of imported CT scan shows both an anterior and posterior bony bridge of H.O. surroundin g the proximal implant. [id number] Justine Lei, PT [facility] [address],[place] [address] 05/03/2019 08:09:13 05/03/2019 10:26:18 Abnormal gait 80778149 R26.9 Hip stiff 306103428 M25. 652 Muscle atrophy 45123096 M62.902 [id number] Catarino Saha, PT [facility] [address],[place] [address] 05/08/2019 10:21:59 05/08/2019 10:27:32 Abnormal gait 36443585 R26.9 Hip stiff 172064444 M25. 652 Muscle atrophy 42315265 M62.265 [id number] Jhoan Valiente SR, PT [facility] [address],[place] [address] 05/09/2019 14:05:39 05/09/2019 15:27:27 Abnormal gait 48945127 R26.9 Hip stiff 817126085 M25. 652 Muscle atrophy 05270595 M62.691 [id number] Aguilar Amador MD [facility] [address] [place] [address] 05/11/2019 11:58:54 05/14/2019 08:34:38 [id number] Qiana Valiente, PT [facility] [address],[place] [address] 05/11/2019 12:44:30 05/11/2019 13:15:17 Abnormal gait 79414607 R26.9 Hip stiff 774298282 M25. 652 Muscle atrophy 47235303 M62.633 [id number] Dyan De La Fuente, DISPATCH CLERK [facility] [address],[place] [address] 05/19/2019 08:20:27 05/19/2019 08:28:35 Abnormal gait 21806960 R26.9 Hip stiff 067929623 M25. 652 Muscle atrophy 67588209 M62.827 [id number] Melissakaila Fisher, DPT [facility] [address],[place] [address] 05/21/2019 09:05:53 05/21/2019 09:47:12 Abnormal gait 35289905 R26.9 Hip stiff 767192501 M25. 652 Muscle atrophy 79770401 M62.918 [id number] Justine Lei, PT [facility] [address],[place] [address] 05/24/2019 11:10:57 05/24/2019 11:43:49 Abnormal gait 90374975 R26.9 Hip stiff 622426132 M25. 652 Muscle atrophy 96973811 M62.545 [id number] Trell Bender, PT [facility] [address],[place] [address] 05/25/2019 10:35:07 05/25/2019 11:33:39 Abnormal gait 95472078 R26.9 Hip stiff 231484762 M25. 652 Muscle atrophy 38281273 M62.648 [id number] Trell Bender, PT [facility] [address],[place] [address] 06/01/2019 10:19:35 06/01/2019 10:57:05 Abnormal gait 13412615 R26.9 Hip stiff 919485147 M25. 652 Muscle atrophy 94699787 M62.422 [id number] Justine Nguyen Tessasam, PT [facility] [address],[place] [address] 06/04/2019 12:30:40 06/04/2019 13:50:32 Abnormal gait 21597562 R26.9 Hip stiff 676107813 M25. 652 Muscle atrophy 98810379 M62.772 [id number] Justine Nguyen Tessasam, PT [facility] [address],[place] [address] 06/06/2019 12:59:00 06/06/2019 14:48:11 Abnormal gait 10785135 R26.9 Hip stiff 876131967 M25. 652 Muscle atrophy 83057699 M62.142 [id number] Trell Bender, PT [facility] [address],[place] [address] 06/08/2019 15:55:28 06/08/2019 16:52:37 Abnormal gait 50807434 R26.9 Hip stiff 562624751 M25. 652 Muscle atrophy 13712529 M62.170 [id number] Trell Bender, PT [facility] [address],[place] [address] 06/11/2019 15:29:27 06/11/2019 15:30:23 Abnormal gait 42919139 R26.9 Hip stiff 250739956 M25. 652 Muscle atrophy 15585181 M62.398 [id number] Justine Nguyen Tessasam, PT [facility] [address],[place] [address] 06/22/2019 12:03:25 06/22/2019 12:48:18 Abnormal gait 61547126 R26.9 Hip stiff 122999042 M25. 652 Muscle atrophy 38909766 M62.335 [id number] Justine Nguyen Quique, PT [facility] [address],[place] [address] 06/25/2019 09:18:14 06/25/2019 09:45:29 Abnormal gait 94651007 R26.9 Hip stiff 384597696 M25. 652 Muscle atrophy 09544532 M62.928 [id number] Justine Lei, PT [facility] [address],[place] [address] 06/27/2019 09:23:26 06/27/2019 10:01:48 Abnormal gait 35039071 R26.9 Hip stiff 060985605 M25. 652 Muscle atrophy 35370296 M62.000 [id number] Justine Lei, PT [facility] [address],[place] [address] 06/29/2019 13:11:11 06/29/2019 14:04:00 Abnormal gait 27677875 R26.9 Hip stiff 386945597 M25. 652 Muscle atrophy 71693732 M62.567 [id number] Zak Larson, PT [facility] [address],[place] [address] 07/03/2019 12:32:43 07/03/2019 13:16:31 Abnormal gait 82347994 R26.9 Hip stiff 874617814 M25. 652 Muscle atrophy 97309350 M62.849 [id number] Dyan De La Fuente, DISPATCH CLERK [facility] [address],[place] [address] 07/04/2019 11:57:59 07/04/2019 12:58:04 Abnormal gait 87832044 R26.9 Hip stiff 108753801 M25. 652 Muscle atrophy 33574925 M62.251 [id number] Trell Bender, PT [facility] [address],[place] [address] 07/05/2019 09:36:12 07/05/2019 10:22:14 Abnormal gait 23379318 R26.9 Hip stiff 638602060 M25. 652 Muscle atrophy 56797465 M62.011 [id number] Lissette Tee, RPT [facility] [address],[place] [address] 07/09/2019 13:03:27 07/09/2019 13:39:40 Abnormal gait 54469298 R26.9 Hip stiff 332096497 M25. 652 Muscle atrophy 49739042 M62.077 [id number] Dyan Mtzluzaden, DISPATCH CLERK [facility] [address],[place] [address] 07/10/2019 14:53:52 07/10/2019 15:06:34 Abnormal gait 45653928 R26.9 Hip stiff 178876980 M25. 652 Muscle atrophy 32174888 M62.329 [id number] Adelita Sandy Patrick, PT [facility] [address],[place] [address] 07/12/2019 15:03:52 07/12/2019 15:05:13 Abnormal gait 89062589 R26.9 Hip stiff 302790483 M25. 652 Muscle atrophy 82791174 M62.072 [id number] Aguilar Amador MD [facility] [address],[place] [address] 07/13/2019 08:46:20 07/16/2019 07:37:45 Pain of left hip joint 7344153865 97782 M25.552 Pain in lumbar spine 267 551321 M54.5 [id number] Adelita Sandyyoli Patrick, PT [facility] [address],[place] [address] 07/16/2019 14:24:21 07/16/2019 14:43:55 Abnormal gait 00738245 R26.9 Hip stiff 711074915 M25. 652 Muscle atrophy 56414180 M62.241 [id number] Zak Larson, PT [facility] [address],[place] [address] 07/17/2019 14:25:38 07/17/2019 15:05:20 Abnormal gait 23076455 R26.9 Hip stiff 630149794 M25. 652 Muscle atrophy 66359337 M62.782 [id number] Lissette Tee, RPT [facility] [address],[place] [address] 07/23/2019 13:01:34 07/23/2019 13:47:20 Abnormal gait 46307260 R26.9 Hip stiff 256304214 M25. 652 Muscle atrophy 85319853 M62.718 [id number] Adelita Sandy Darnell, PT [facility] [address],[place] [address] 07/25/2019 12:03:16 07/25/2019 12:58:01 Abnormal gait 92420001 R26.9 Hip stiff 261049128 M25. 652 Muscle atrophy 56409319 M62.234 [id number] Dyan Kiesha De La Fuente, DISPATCH CLERK [facility] [address],[place] [address] 07/30/2019 13:00:18 07/30/2019 13:42:12 Abnormal gait 62293151 R26.9 Hip stiff 080652765 M25. 652 Muscle atrophy 56337648 M62.749 [id number] Dyan De La Fuente, DISPATCH CLERK [facility] [address],[place] [address] 07/31/2019 13:03:24 07/31/2019 13:45:01 Abnormal gait 69183712 R26.9 Hip stiff 018622820 M25. 652 Muscle atrophy 95195373 M62.353 [id number] Zakkaila Larson, PT [facility] [address],[place] [address] 08/03/2019 08:43:59 08/03/2019 09:46:29 Abnormal gait 79283967 R26.9 Hip stiff 221220960 M25. 652 Muscle atrophy 66503799 M62.553 [id number] Zak Larson, PT [facility] [address],[place] [address] 08/07/2019 12:26:14 08/07/2019 13:32:17 Abnormal gait 77265480 R26.9 Hip stiff 122872785 M25. 652 Muscle atrophy 90543193 M62.711 [id number] Adelita Sandy Darnell, PT [facility] [address],[place] [address] 08/08/2019 12:09:18 08/08/2019 12:43:04 Abnormal gait 64248723 R26.9 Hip stiff 955805179 M25. 652 Muscle atrophy 54571422 M62.598 [id number] Gunnar Conway MD [facility] [address] [place] [address] 11/22/2019 12:46:19 11/26/2019 09:38:19 Low back pain 596456399 M54.5 Lumbar radiculopathy 128 574365 M54.16 Degenerati on of lumbar intervertebral disc 07135015 M51.36 Health Concerns Section Related Observation LastModified by Organization Detai ls LastModified Time None Recorded Concern Status LastModified by Organization Details LastModified Time None Recorded Advance Directives Directive None Recorded Payers Insurance Date Sequence Insurance Name Policy Number Policy Delgadillo Covered Member ID Delgadillo Member ID Guarantor Name 01/23/2020 2 [place]: [facility] Gladstan Brightly [id number] Gladston Brightly 01/23/2020 1 [place] (MED[place]ARE[place] Gladston A Brightly [id number] Gladston Brightly Notes Date Note Type Note Provider Name and Address Organization Details Recorded Time 07/31/2019 text/html Pt says he felt energized and much looser/better after last PT session. Dyan De La Fuente, DISPATCH CLERK [address] [facility] [address], [place], [address], [facility] 07/31/2019 14:11:46 08/03/2019 text/html No new complaints. Zak Larson, PT [address] [facility] [address], [place], [address], [facility] 08/06/2019 07:17:45 08/07/2019 text/html No new complaints. Patient stated that he feels he is improving despite the lack of progress we see in the clinic. Zak Larson, PT [address] [facility] [address], [place], [address], [facility] 08/07/2019 14:35:55 08/08/2019 text/html Pt arrived 9 min late. Adelita Patrick, PT [address] [facility] [address], [place], [address], [facility] 08/09/2019 08:56:15 11/22/2019 text/html 59 year old male with Lower back pain presents for initial evaluation Patient was referred by Self Pain has been present for many years Pain is worse with [id number] sitting and standing, Pain is better with laying down Pain is currently 7/10 but can get as bad as 12/10 Pain radiates down side of right leg above knee Describes the pain as burning, constant, deep, achy, pressure Medications the patient has tried tylenol, oxycodone, Imaging in the past MRI hip Therapies in the past physical therapy currently, Interventions in the past steroid injection last one 4 years ago relief for 6 months Gunnar Conway MD [id number] [facility] [address], [place], [address], [facility] 11/26/2019 09:33:13
== END 2024-12-04 12:27 | disposition home or self-care (01) ==
LOC: HO.HGI 11:45
PROVIDERS: PCP Nurse Practitioner Family; Visit Provider Nurse Practitioner
DX: Z01.818 Encounter for other preprocedural examination (principal); Z12.11 Encounter for screening for malignant neoplasm of colon
CPT/HCPCS: 99024

== ENCOUNTER → 2024-12-04 11:44 | Outpatient (BNVA) | payer MEDICARE, MEDICAID, SELFPAY | PROVIDERS: PCP Nurse Practitioner Family; Visit Provider Nurse Practitioner | DX: Z01.818 Encounter for other preprocedural examination (principal); I10 Essential (primary) hypertension; M17.0 Bilateral primary osteoarthritis of knee; F32.9 Major depressive disorder, single episode, unspecified; F32.A Depression, unspecified; F41.9 Anxiety disorder, unspecified; M54.50 Low back pain, unspecified | CPT/HCPCS: 99212 ==

== ENCOUNTER 2025-01-09 10:37 | Outpatient (AMB) | payer MEDICARE, MEDICAID, SELFPAY ==
--- OUTSIDE RECORDS SUMMARY | 2014-04-15 12:45 | XMS_ITS | Continuity of Care Document ---
Author Organization [facility] Address [address] [place] [address] Phone Care Team Providers Care Upstairs Maid Name Role Phone Sy Montana MD Unavailable [...] Diagnoses Date Provider Providers Copied on Encounter [facility], [address], [place], [place], [address], [place] tel:[phone] [phone] No Information Rubén Dan. [address], [place], [place], [address] , [place]. tel:[phone] Office/outpat ient visit,new, mod [facility], [address], [place], [place], [address], tel:[phone] 400 [facility] [address] left hip pain (chief complaint) PAIN IN LIMBLumbar painPelvic obliquityLeg length inequality 4 Rubén Dan. [address], [address], [place], [place], [address] , [place]. tel:[phone] Referring Provider: Sy Montana MD K, [address], [place], [address] . tel:[phone] [facility], [address], [place], [place], [address], tel:[phone] [facility] 400 No Information 4 Rubén Dan. [address], [address], [place], [place], [address] , [place]. tel: [phone] Family History Family Member Type Diagnosis Age At Onset No Information Payers Payer name Insurance type Covered republican ID Authoriza tion(s) No Information Social History [...] continue workup and treatment options with a forestry support specialist that he has seen down in [place]. Related to Lumbar pain Assessments Type Assessment Date No Information Patient Care Teams Name Effective Dates (start - stop) Status Members No Information
--- NOTE | 2025-01-09 10:40 | A.OFFPC_ITS ---
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 History of Present Illness The patient is a 64-year-old male presenting with hypertension. He uses a wrist cuff for blood pressure monitoring, which is deemed inaccurate, and was advised to switch to an arm cuff, though he is currently not interested. He experiences anxiety during medical visits, potentially impacting his blood pressure readings. Social History Health Maintenance Review of Systems - Cardiovascular: Denies chest pain - Respiratory: Denies dyspnea - Neurological: Denies headache, blurred vision, dizziness Physical Exam General: Cooperative, healthy appearing, comfortable, no acute distress and well developed Orientation: Patient oriented x3 Limitations: No limitations Head: Normal to inspection Ears: Hearing grossly normal bilaterally Nose: Normal external nose present Face and sinus: Normal facial exam Eyes: Appearance normal, both eyes and all related structures Neck: Normal visual inspection and Yes full ROM Respiratory: Normal respiratory effort and able to speak in complete sentences. Clear to auscultation bilaterally Cardiovascular: Regular rate and rhythm. Normal S1 and S2 GI: Normal to inspection. Soft to palpation and nontender Skin: No rashes or lesions noted Neuro: Patient oriented x3 Extremities: Normal to inspection, no edema Results Plan The patient was advised to transition from a wrist cuff to an arm cuff for more accurate blood pressure monitoring, though he is not currently interested in this change. Anxiety during medical visits, which may affect blood pressure dorothy herrera, should be considered in his ongoing management. Adding a low dose HCTZ today. labs encouraged. Discussion Notes I discussed with the patient the inaccuracy of wrist cuffs for blood pressure monitoring and recommended switching to an arm cuff for better accuracy. We also talked about how his anxiety during visits might influence his blood pressure readings and the importance of considering this in his management plan. Patient Instructions - Consider using an arm cuff for more ac curate blood pressure readings. - Be aware that anxiety during visits ma y affect blood pressure readings. [facility] Medical History Laboratory tests ordered as part of a complete physical exam (CPE) Physical exam, annual Screening for colon cancer Depression Anxiety Prostate troubles Hypertension Surgical History History of left hip replacement Family History Other No pertinent family history Social History Household Members: Family, Children and None Housing: House Alcohol intake: never Patient Tobacco Use Status: Never used Tobacco e-Cigarette/Vaping Use: Never Used service: No Current occupational status: unemployed Gender identity: Male Cognitive needs: No Hearing needs: No Vision needs: No Questionnaire PHQ-9 Over the last 2 weeks, how often have you been bothered by any of the following problems? 1. Little interest or pleasure in doing things: more than half the days 2. Feeling down, depressed, or hopeless: more than half the days 3. Trouble falling or staying asleep, or sleeping too much: several days 4. Feeling tired or having little energy: nearly every day 5. Poor appetite or overeating: more than half the days 6. Feeling bad about yourself - or that you are a failure or have let yourself or your family down: more than half the days 7. Trouble concentrating on things, such as reading the newspaper or watching television: nearly every day 8. Moving or speaking so slowly that other people could have noticed. Or the opposite - being so fidgety or restless that you have been moving around a lot more than usual: several days 9. Thoughts that you would be better off or of hurting yourself in some way: not at all Total score: 16 Depression Screening Interpretation: Positive Depression Screening Done: Yes 74047 - PHQ-9 Billing: Yes Source: Developed by Drs. Vickey Barlow, Loco Vazquez and colleagues, with an educational zen from [employer]. Thrive Questionnaire Date Thrive assessed: 01/09/25 I am a: Patient What is your living situation today?: I have a steady place to live Within the past 12 months, did the food you bought not last and you didn't have the money to get more?: Never true Within the past 12 months, did you worry whether your food would run out before you got money to buy more?: Never true Do you have trouble paying for medicines?: No Do you have trouble getting transportation to medical appointments?: Yes Do you have trouble paying your heating and electricity bill?: No Do you have trouble taking care of your child, family member or friend?: No Do you have trouble with day-to-day activities such as bathing, preparing meals, shopping, managing finances, etc.?: No Are you currently unemployed and looking for a job?: Yes Are you interested in more education?: Yes Please select the resources that you would like help with: Transportation Currently or been in a relationship where the following occur: No concerns reported THRIVE Score: 1 AUDIT C Alcohol Use Questionnaire (AUDIT-C) 1. How often do you have a drink containing alcohol?: Never Total Score: 0 KAREN-7 AMB Questionnaire KAREN-7 Date KAREN - 7 assessed: 01/09/25 (patient declined) Source: Developed by Drs. Vickey Barlow, Loco Vazquez and colleagues, with an educational zen from [employer]. Physical exam (Primary Care) Vital Signs: Last Vital Signs Pulse 57 01/09/25 10:42 Resp 16 01/09/25 10:42 BP 130/90 H 01/09/25 10:42 Pulse Ox 97 01/09/25 10:42 Oxygen Delivery Method Room Air 01/09/25 10:42 BMI result Body Mass Index 23.2 Tobacco/Smoking Status: Tobacco use Status Tobacco use date assessed 01/09/25 01/09/25 10:42 Patient Tobacco Use Status Never used Tobacco 01/09/25 10:42 e-Cigarette/Vaping Use Never Used 01/09/25 10:42 PHQ-9: PHQ-9 Score PHQ-9: Total score 16 01/09/25 11:15 Depression Screening Interpretation: Positive Thrive Assessment: Date of Thrive Assessment Date Thrive assessed 01/09/25 01/09/25 10:42 Currently or been in a relationship where the following occur: No concerns reported Coding Level of Care Code Est Pt Level 3 (74095) Diagnoses Primary hypertension I10 Hypertension type: primary hypertension Additional Codes PHQ-9 - 61862 - PHQ-9 Billing: Yes ([id number]) Assessment & Plan Assessment & Plan (1) Hypertension: Code(s): I10 - Essential (primary) hypertension Category: Medical Qualifiers: Hypertension type: primary hypertension Qualified Code(s): I10 - Essential (primary) hypertension Plan . Orders: Orders Comprehensive Wayne. Panel Fast Today I10 - Essential (primary) hypertension TSH reflex Free T4 Today I10 - Essential (primary) hypertension UA CC w/rflx Micro + Cult Today I10 - Essential (primary) hypertension Lipid Panel Today I10 - Essential (primary) hypertension Complete Blood Count Auto Diff Today I10 - Essential (primary) hypertension Medications: New hydrochlorothiazide 12.5 mg PO QAM 30 tabs 3RF 30 days
[2025-01-09 10:42] VITALS: BP 130/90; PULSE 57; RESP 16; O2SAT 97; BMI 23.2
[2025-01-09 11:25] VITALS: BP 140/98
== END 2025-01-09 16:36 | disposition home or self-care (01) ==
LOC: HO.HMCC 10:39
PROVIDERS: PCP Nurse Practitioner Family; Visit Provider Nurse Practitioner Family
DX: I10 Essential (primary) hypertension (principal)

== ENCOUNTER → 2025-01-09 10:37 | Outpatient (BNVA) | payer MEDICARE, MEDICAID, SELFPAY | PROVIDERS: PCP Nurse Practitioner Family; Visit Provider Nurse Practitioner Family | DX: I10 Essential (primary) hypertension (principal); F41.9 Anxiety disorder, unspecified | CPT/HCPCS: 96127; 99212 ==

== ENCOUNTER 2025-01-28 10:50 | Outpatient (REF) | payer MEDICARE, MEDICAID, SELFPAY ==
[2025-01-28 11:08] LABS: MANUAL DIFF FLAG NO
[2025-01-28 11:09] LABS: Hematocrit 40.7 % (42.0-52.0); Hemoglobin 12.8 g/dl (14.0-18.0); Imm Gran Abs Auto 0.01 X10*3/uL (0.00-0.03); Imm Gran Pct Auto 0.3 % (0.0-0.4); Lymphocytes Absolute Auto 1.6 X10*3/uL (1.2-4.9); Mean Corpuscular HGB Conc 31.4 g/dl (31.0-36.0); Mean Corpuscular Hemoglobin 27.1 pg (27.0-33.0); Mean Corpuscular Volume 86.2 fL (80.0-98.0); NRBC Abs Auto 0.000 X10*3/uL (0.0-0.012); NRBC Pct Auto 0.0 /100WBC (0.0-0.2); Platelet Count 310 X10*3/uL (160-400); Red Blood Count 4.72 X10*6/uL (4.60-5.80); White Blood Count 3.5 X10*3/uL (4.8-10.8)
[2025-01-28 11:59] LABS: Alanine Aminotransferase 20 U/L (0-40); Albumin Level 4.3 g/dL (3.5-5.0); Alkaline Phosphatase 98 U/L (39-117); Anion Gap 12 (12-20); Aspartate Amino Transferase 32 U/L (5-37); Blood Urea Nitrogen 17 mg/dL (9-16); Calcium 9.3 mg/dL (8.4-10.2); Carbon Dioxide 25 mmol/L (22-29); Chloride 107 mmol/L (96-108); Cholesterol 145 mg/dL (<200); Estimated Glomerular Filt Rate > 60; HDL Cholesterol 51 mg/dL (>40); Potassium 4.2 mmol/L (3.3-5.1); Sodium 140 mmol/L (135-145); Total Protein 7.1 g/dL (6.5-8.0); Triglycerides 44 mg/dL (<150)
[2025-01-28 12:39] LABS: Appearance Urine Clear; Glucose Urine UA Negative (Negative); PH 6.0 (5.0-9.0); Specific Gravity - Urine 1.020 (1.005-1.025)
== END 2025-01-28 10:51 | disposition home or self-care (01) ==
LOC: HO.LAB 10:50
PROVIDERS: PCP Nurse Practitioner Family; Visit Provider Nurse Practitioner Family
DX: I10 Essential (primary) hypertension (principal)
CPT/HCPCS: 36415; 80053; 80061; 81003; 84443; 85025

== ENCOUNTER 2025-03-08 09:16 | Outpatient (REF) | payer MEDICARE, MEDICAID, SELFPAY ==
--- OUTSIDE RECORDS SUMMARY | 2014-04-15 12:45 | XMS_ITS | Continuity of Care Document ---
Author Organization [facility] Address [address] [place] [address] Phone Care Team Providers Care Senior Office Support Assistant Sosa Name Role Phone Sy Montana MD Unavailable Unavailable Allergies, Adverse Reactions, Alerts Substance Reaction Status Criticality No Known Allergies Active No Inform ation Medications Medication Instructions Dosage Effective Dates (start - stop) Status Comments FINASTERIDE (unknown strength) Not Available - Active tamsulosin ER 0.4 mg capsule,extended release 24 hr - Active METAXALONE (unknown strength) Not Available - Active SERTRALINE HCL (unknown strength) Not Available - Active DIAZEPAM (unknown strength) Not Available - Active LISINOPRIL (unknown strength) Not Available - Active BACLOFEN (unknown strength) Not Available - No Longer Active Procedures Procedure Date X-ray exam of hip, 2 Views Office/outpatient visit,new, mod 2013 Advance Directives Directive Yes / No Effective Date File Name No Information Encounters Encounter Description Practice Location Reason(s) For Visit Diagnoses Date Provider Providers Copied on Encounter [facility], [address], [place], [place], [id number], tel:[phone] [phone] No Information Rubén Dan. [address], [place], [place], [address] , [place]. tel:[phone] Office/outpat ient visit,new, mod [facility], [address], [place], [place], [address], tel:[phone] 400 [facility] [address] left hip pain (chief complaint) PAIN IN LIMBLumbar painPelvic obliquityLeg length inequality 4 Rubén Dan. [address], [address], [place], [place], [address] , [place]. tel:[phone] Referring Provider: Sy Montana MD K, [address], [place], [address] . tel:[phone] [facility], [address], [place], [place], [address], tel:[phone] [facility] 400 No Information 4 Rubén Dan. [address], [address], [place], [place], [address] , [place]. tel:[phone] Family History Family Member Type Diagnosis Age At Onset No Information Payers Payer name Insurance type Covered alliance party ID Authoriza tion(s) No Information Social History Type Description Quantity Date Captured Comments Sex Male Smoking Status No Information Chief Complaint And Reason For Visit No Information Reason For Referral Reason For Referral No Information Plan Of Treatment Date Type Action Status Referral Ordered: X-ray exam of hip, 2 Views LT ordered History Of Present Illness Encounter Date Complaint History Of Prese nt Illness left hip pain Mr Peter is a 54 year old male who complains of left hip pain. He presents with pain on the left side. Patient has a very long history of left hip pain and had a left total hip arthroplasty done 2 years ago. He reports very minimal improvement in the pain after the surgery. He states he was told in the past his pelvis is higher on he left side than the right which is the cause of his pain. He states the pain occurs mostly along his low back but denies any radiation of pain down his leg or in the groin. Patient insists the pain is not related to his back but is caused by his pelvis/left hip. He states that the symptoms have been chronic non-traumatic. The symptoms occur constantly. The problem is stable. Currently the patient states that the symptoms are mild-moderate. He rates his current pain as 6/10. The symptoms are aggravated by daily activities, movement, repetitive activities, walking and standing. In addition to left hip pain the patient is also experiencing decreased mobility, limping, nocturnal awakening, pain after activity and tenderness. Functional Status Date Functional Assessmen t No Information Instructions Date Instruction Additional Infor sonido I've reassured the p atient that his hip replacement appears stable. It appears his leg length inequality is most likely due to was pelvic obliquity which may be secondary to significant scoliosis of his lower lumbar spine. I've explained I do not think further work on his hip would result in any improvement of his symptoms. He may be a slightly higher buildup on his shoe to equalize things a little better. I've recommended he continue workup and treatment options with a aircraft engine specialist that he has seen down in [place]. Related to Lumbar pain Assessments Type Assessment Date No Information Patient Care Teams Name Effective Dates (start - stop) Status Members No Information
--- NOTE | ~2025-03-08 | XR_ITS ---
EXAMINATION: XR KNEE 3 VIEWS RIGHT HISTORY: PAIN IN RIGHT KNEE COMPARISON: Comparison is made with the prior examination dated 07/29/2023. FINDINGS: Three views of the right knee are submitted. Osseous mineralization is normal. There is no fracture or dislocation. There is mild narrowing of the medial compartment. The soft tissues are unremarkable. There is no joint effusion. XR/XR knee RT 3V IMPRESSION: Mild narrowing of the medial compartment. Electronically signed by: Vickey Thorne MD 03/08/2025 09:53 AM EDT
== END 2025-03-08 09:17 | disposition home or self-care (01) ==
LOC: HO.XRAY 09:16
PROVIDERS: PCP Nurse Practitioner Family; Visit Provider Student in an Organized Health Care Education/Training Program
DX: M25.561 Pain in right knee (principal)
CPT/HCPCS: 73562

== ENCOUNTER → 2025-03-08 09:21 | Outpatient (BNV) | payer MEDICARE, MEDICAID, SELFPAY | PROVIDERS: PCP Nurse Practitioner Family; Visit Provider Radiology Diagnostic Radiology | DX: M25.561 Pain in right knee (principal) | CPT/HCPCS: 73562 ==

== ENCOUNTER 2025-04-11 08:39 | Day surgery (SDC) | payer MEDICARE, MEDICAID, SELFPAY ==
--- NOTE | 2025-04-08 14:25 | HO.ANESPROP2 ---
HPI - Anesthesia Eval Consult details Narrative: 65yo M for Colonoscopy PMF Active Problems Active Problems: All Active Problems Pre-op examination (Acute) Rotator cuff arthropathy of right shoulder (Acute) Leukopenia (Chronic) Anemia (Acute) Osteoarthritis of shoulders, bilateral (Acute) Leg length discrepancy (Acute) History of left hip hemiarthroplasty (Acute) Osteoarthritis of knees, bilateral (Acute) Arthritis (Acute) Bilateral shoulder pain (Acute) Bilateral knee pain (Acute) Insomnia (Acute) Chronic low back pain without sciatica (Acute) ADHD (Acute) BPH (benign prostatic hyperplasia) (Acute) Depression (Acute) Anxiety (Acute) Hypertension (Acute) Past Medical History Medical History (Updated 04/09/25 @ 13:00 by Breanne Santillan RN) Arthritis BPH (benign prostatic hyperplasia) HTN (hypertension) ADHD (attention deficit hyperactivity disorder) Depression Anxiety Hypertension Family History Family History Other No pertinent family history Surgical History Surgical History (Updated 04/11/25 @ 09:37 by Chelsey Nash RN) H/O colonoscopy History of left hip replacement Social History Social History Household Members: Family, Children and None Housing: House Alcohol intake: never Patient Tobacco Use Status: Never used Tobacco e-Cigarette/Vaping Use: Never Used service: No Current occupational status: unemployed Gender identity: Male Cognitive needs: No Hearing needs: No Vision needs: No Meds Allergies Allergy/AdvReac Type Severity Reaction Status Date / Time tamsulosin (From Flomax) Allergy Severe Facial Verified 01/09/25 10:50 Swelling Home Medications ?Medication ?Instructions ?Recorded ?Confirmed ?Last Taken ?Type buspirone 30 mg tablet 30 mg PO BID 02/20/24 04/09/25 Unknown History bupropion HCl 300 mg 24 hr tablet, 300 mg PO QAM 04/09/25 04/09/25 Unknown History extended release trazodone 50 mg tablet 50 - 100 mg PO NEEDED 04/09/25 04/09/25 Unknown History Assessment and Plan Assessment Anesthesia Assessment: Chart Reviewed
[2025-04-09 12:59] VITALS: BMI 23.1
[2025-04-11] VITALS (9 sets, daily range): BP systolic 71–137; BP diastolic 40–86; PULSE 67–87; RESP 14–16; TEMP 36.6–36.8; O2SAT 95–99; BMI 23.3
--- NOTE | 2025-04-11 09:59 | MHC.SHP ---
Pre-Procedural Eval Section A - 24 Hr Update-Section A only Date of Service: 04/11/25 Section B - Complete if H&P > 30 days Chief Complaint: preprocedural examination,screening Details of Present Illness: Depression Anxiety Prostate troubles Hypertension Present Medications: see Short Stay Collaborative assessment Allergies: Allergies Allergy/AdvReac Type Severity Reaction Status Date / Time tamsulosin (From Flomax) Allergy Severe Facial Verified 01/09/25 10:50 Swelling Review of Systems Review of Systems Comment: Ten point ROS negative Exam Exam Comment: Gen appear: No acute distress HEENT: no icterus Chest: No overt resp distress Abd: soft, nontender, nondistended Psych: Stable affect, answering questions appropriately Neuro: A/Ox3 noted to move all extremities spontaneously Ext: no peripheral edema Plan Diagnosis/Plan: Unchanged I have reviewed the history and physical and performed a pertinent physical examination on my patient. No changes have occurred unless specified. Time Spent With Patient Time: Total time managing care of this patient today ____ minutes.
[2025-04-11] MEDS: Lactated Ringers 1,000 ML 100 ML IVCONT (10:02)
--- NOTE | 2025-04-11 11:10 | P.OPN-COLO_ITS ---
Colonoscopy Operative Note Operative Note Date of Service: 04/11/25 Narrative: Procedure: Colonoscopy Indication: Screening Endoscopist: Loyda Cummings MD Anesthesia Provider: Dr Pedraza Anesthesia type: MAC Instrument: Olympus [id number] Consent: Indication, risks vs benefits, and alternatives were discussed with the patient who gave written informed consent to proceed. EKG, pulse, pulse oximetry and blood pressure were monitored throughout the procedure. Please see anesthesia flowsheet. Procedure: The patient was brought to the procedure room and placed in the left lateral decubitus position. IV medications were administered by the anesthesia provider in attendance. A digital rectal exam was performed which was normal. A distal attachment cap was affixed to the tip of the colonoscope which was then inserted through the anus and advanced through the colon to the cecum at 75 cm. Appendiceal orifice and ileocecal valve were identified. Mucosa was carefully examined under high definition white light as the instrument was slowly withdrawn in a retrograde panoramic fashion. Retroflexion was performed in rectum. The procedure was not difficult. There were no immediate obvious complications. The quality of the prep was BBPS: 3+2+3 = adequate Withdrawal time 7 minutes. Limitations: No limitations. Findings: Mucosa: Normal to cecum and terminal ileum. Protruding lesions: * Large internal hemorrhoids without stigmata of recent bleeding. Impression: 1. Normal colon mucosa 2. Internal hemorrhoids Recommendations: - Repeat colonoscopy for asymptomatic colorectal ca screening in 10 years.
== END 2025-04-11 13:01 | disposition home or self-care (01) ==
PROVIDERS: PCP Nurse Practitioner Family; Visit Provider Internal Medicine
PROC: 0DJD8ZZ Inspection of Lower Intestinal Tract, Via Natural or Artificial Opening Endoscopic (ICD-10-PCS; CPT 45378; principal; 2025-04-11 10:50)
DX: Z12.11 Encounter for screening for malignant neoplasm of colon (principal); K64.8 Other hemorrhoids
CPT/HCPCS: G0121; J2003; J2704; J3010

== ENCOUNTER → 2025-04-11 08:39 | Outpatient (BNV) | payer MEDICARE, MEDICAID, SELFPAY | PROVIDERS: PCP Nurse Practitioner Family; Visit Provider Internal Medicine | DX: Z12.11 Encounter for screening for malignant neoplasm of colon (principal); K64.8 Other hemorrhoids | CPT/HCPCS: G0121 ==